=== PATIENT | female | born 1955 | race Caucasian/White ===

== ENCOUNTER 2016-06-25 06:37 | Inpatient (IN) ==
[2016-06-25] MEDS ORDERED: Aspirin 81 MG TAB.CHEW PO ONE (07:12)
--- NOTE | 2016-06-25 07:18 | Emergency Department Note ---
Disposition Clinical Impression: Acute kidney insufficiency Chest pain Qualifiers: Chest pain type: unspecified Qualified Code(s): R07.9 - Chest pain, unspecified Disposition: Admitted As Inpatient Condition: Good Referrals: Willie Estrada MD [Primary Care Provider] - Forms: ED Satisfaction Letter Time of Disposition: 07:46 Chest Pain HPI - General Chief Complaint: ED Chest Pain Stated Complaint: chest pain/DARRIN Time Seen by Provider: 06/25/16 07:10 Source: patient, family, EMS Mode of arrival: ambulatory Limitations: no limitations Vital Signs Reviewed: Yes Nursing Notes Reviewed: Yes - History of Present Illness HPI Narrative: Patient presents with chest pain this morning. Woke up with pressure on her chest. She has had a similar episode approximately 3 years ago and required catheterization and stenting. Patient said symptoms resolved completely at home with Tylenol and 1 hydrocodone. Patient otherwise has no complaints. Denies recent trauma injury or illness. She was concerned and decided to come the emergency room for evaluation because of her medical history Pt complaint: chest pain Onset (ago): Just [employer] [facility] [employer] Duration: now resolved Onset: during rest Pain Location: substernal Severity: none Severity scale (1-10): 0 Quality: heaviness Pain Radiation: none Improves with: other Worsens with: nothing Treatments prior to arrival chest pain: other (Tylenol and acetaminophen) - Related Data Allergies Allergy/AdvReac Type Severity Reaction Status Date / Time No Known Allergies Allergy Verified 06/25/16 06:39 All systems ED: reviewed and negative except as stated. Cardiovascular: Reports: chest pain. Denies: palpitations Respiratory: Denies: cough, dyspnea, wheezes Musculoskeletal: Denies: back pain Neurological: Denies: headache Chest Pain PMH - Past Medical History Medical history: Reports: CHF, COPD, DVT, hyperlipidemia, myocardial infarction Psychiatric history: Reports: no psych history - Social History Smoking Status: Former smoker Alcohol use: Reports: none Drug use: Reports: none Physical Exam - General Limitations: no limitations - Head Head exam: atraumatic, normocephalic, normal inspection - Chest Chest inspection: Present: normal inspection, symmetric chest wall rise. Absent : tenderness - Respiratory Respiratory exam: Present: normal lung sounds bilaterally. Absent: respiratory distress, wheezes, stridor, accessory muscle use - Cardiovascular Cardiovascular exam: Present: regular rate, normal rhythm, normal heart sounds - Abdominal Exam Abdominal exam: Present: soft, Non-Tender, normal bowel sounds. Absent: tenderness, distention, guarding, rebound, rigidity, Miller's sign, Rovsing's sign, tenderness at McBurney's Point - Extremities Exam Extremities exam: Present: normal inspection, full ROM, normal capillary refill. Absent: pedal edema - Back Exam Back exam: Present: normal inspection, full ROM. Absent: tenderness, CVA tenderness (R), CVA tenderness (L) (I will take) - Neurological Exam Neurological exam: Present: alert, oriented X3, CN II-XII intact, normal gait - Skin Skin exam: Present: warm, dry, intact, normal color Course Course Narrative: Patient seen and examined the time of arrival. See history of present illness. Patient presents to emergency room with complaint of chest heaviness and pressure. Woke her from sleep. She said this episode have a one-time a past when she required catheterization stent placement. Patient followed up with a trash collector in another town. She lives her locally. She denies any symptoms on presentation this time. Vital signs are reviewed and are stable. Patient is afebrile. Patient took a hydrocodone as well as 3 Tylenol prior to coming and did not take aspirin she is not complaining of any pain at this time. His exam is benign. Lungs are clear heart is regular no reproducible symptoms on palpation the chest wall. Abdomen soft nontender nondistended no pulsatile lesions. Patient is breathing comfortable and no acute distress. Patient does have underlying depression anxiety. Unknown whether this is exacerbating the etiology of her presentation here today. Patient is concerning for cardiac related sourced her symptoms secondary to her history and medical issues. Patient on cardiac evaluation. She has not had an echo or stress test done in over one year. Patient will require further cardiac evaluation. Discussed initially with possible admission for cardiac rule out this time. She does have a pacemaker in place secondary to unknown cardiac arrhythmia in the past. Patient otherwise is resting comfortably in the bed in no distress. Patient is not the most informative with her medical history is this time will continue to look until treatment course is completed. Expect admission process to be completed once labs and imaging are resulted. EKG troponin basic laboratory workup and chest x-ray are all pending at this time. Disposition pending treatment course. Patient has no symptoms this time. There is no acute need for nitroglycerin her pain medication intervention this point. We will continue to monitor treatment course is completed - Reevaluation(s) Reevaluation #1: Patient has negative troponin at this time. EKG reviewed showing a atrially paced rhythm with no acute abnormality. Patient does have an elevated BNP and creatinine today at 1.83 there is no comparable studies. Patient does not have physical exam findings consistent with acute fluid overload or CHF exacerbation. Patient this time will be admitted for evaluation of acute coronary syndrome with unknown etiology at this time. Patient provided with aspirin aeration and symptom 3 throughout the course of care. Admission process to be completed at this time Time: 07:45 Reevaluation #2: Patient course of care medical intervention was reviewed with the hospitalist Dr. Telles. No other recommendations this time except for placement and observation 4. Patient stable no other medical intervention in this point we will continue to observe her in emergency room to mesh prosthesis is completed Time: 07:58 Vital Signs Temperature 97.7 F 06/25/16 06:39 Pulse Rate 62 06/25/16 06:39 Respiratory Rate 16 06/25/16 06:39 Blood Pressure 119/105 06/25/16 06:39 O2 Sat by Pulse Oximetry 100 06/25/16 06:39 Temperature 97.7 F 06/25/16 06:52 Pulse Rate 62 06/25/16 06:52 Respiratory Rate 16 06/25/16 06:52 Blood Pressure 122/74 06/25/16 06:52 O2 Sat by Pulse Oximetry 100 06/25/16 06:52 Oxygen Delivery Oxygen Delivery Nasal Cannula Chest Pain - MDM Narrative Medical decision making narrative: ACS rule out, chest pain - Medical Records Medical records reviewed: Yes I reviewed the patient's medical records. - Lab Data Lab results reviewed: Yes I reviewed the patient's lab results. - Radiology Data Radiology results reviewed: Yes I reviewed the patient's radiology results. Patient is stable chest x-ray no signs of CHF exacerbation or infiltrate - EKG Data EKG attestation: Yes I reviewed and interpreted this EKG. Interpretation: other (Atrially paced rhythm with no acute abnormalities compared to EKG done on 07/31/06 previous EKG does not have pacemaker in place. Intervention for pacemaker was several years prior) Heart Score - Score History: Moderately Suspicious EKG: Non Specific repolarisation Disturbance Age: 45-65 Risk Factors: 1-2 risk factors Troponin: Less than normal limit HEART Score Total: 4
[2016-06-25 07:29] LABS: Calcium 9.1 mg/dL (8.6-10.8)
[2016-06-25 07:30] LABS: Potassium 4.8 mEq/L (3.5-4.5)
[2016-06-25 07:31] LABS: Activated Partial Thrombo Time 34.5 Seconds (26.0-36.0)
--- NOTE | 2016-06-25 07:43 | Emergency Department Note ---
START Narrative - START START: I examined this patient and my medical decision-making was reviewed with the CONCRETE FORM SETTER AND FINISHER/PA/Advanced Practice Nurse/Resident Physician. I agree with the documented findings, disposition and treatment plan as described except to the extent set forth below. ED attending note: Patient seen with emergency medicine resident Dr. Ryan. Please see a copy of his note for details of the H&P, evaluation, management and disposition of this patient. We independently had [id number] contact with the patient Briefly: [id number] female history of coronary artery disease. No recent provocative testing comes in with chest pain consistent with an anginal equivalent. Pain-free now afebrile with stable vital signs. EKG reviewed shows no acute ischemic changes. Awaiting chest x-ray troponin and other screening labs. Patient was given aspirin in the ED. Admission is anticipated and discussed with patient and support personnel with her. They are comfortable with this plan. Disposition pending
[2016-06-25 07:45] LABS: Basophils % 0.3 %; Eosinophils # 0.4 K/mcL (0.0-0.6); Eosinophils % 4.8 %; Hematocrit 38.5 % (35.3-44.9); Immature Granulocytes % 0.4 % (0-4); Lymphocytes # 3.7 K/mcL (0.6-4.6); Lymphocytes % 40.7 %; Mean Corpuscular HGB Conc 31.2 g/dL (31.6-35.5); Mean Corpuscular Hemoglobin 27.5 pg (28.0-33.3); Mean Corpuscular Volume 88.3 fL (83.0-100.0); Mean Platelet Volume 12.4 fL (9.4-12.4); Monocytes # 0.5 K/mcL (0.0-1.3); Monocytes % 5.6 %; Neutrophils # 4.4 K/mcL (1.6-8.9); Nucleated Red Blood Cells 0.2 /100 WBC (0); Platelet Count 213 K/mcL (140-400); Red Blood Count 4.36 M/mcL (3.82-4.97); Red Cell Distribution Width 15.9 % (11.5-14.5); Segmented Neutrophils % 48.2 %
--- NOTE | 2016-06-25 08:30 | Event Note ---
Date of Encounter: 06/25/16 Time of Encounter: 08:24 This document examined with nurse practitioner. Briefly 60-year-old female with history of coronary artery disease status post for stent placement last was about 2 years ago, history of mitral valve repair/replacement (not a mechanical valve) for my mitral regurge, status post pacemaker placement, COPD on nighttime oxygen, who presented to the emergency room today with chest pain. About 7 AM while patient was awake sitting in bed she experienced members of the retrosternal chest pain radiating to her neck lasted approximately for 10 minutes resolved after she took hydrocodone. Patient was often during my interview. Initial appointment normal. She will be admitted without acute coronary syndrome. Serial cardiac markers Continue anti-ischemic medications including aspirin beta blockers. Attempt to get outside records over cardiac workup from [facility] in [place]. Cardiology service evaluation. She has elevation of her creatinine to 1.8. she has no known prior kidney disease according to her. She was recently started on Bactrim for skin lesions and that may have caused hyperkalemia and elevation of creatinine. gentle hydration and follow-up kidney functions. Continue doxycycline which she is already taking for her skin lesions. Full code
--- NOTE | 2016-06-25 09:28 | Internal Med History&Physical ---
Date of Encounter: 06/25/16 Time of Encounter: 08:30 Assessment and Plan (1) Chest pain Current visit: Yes Status: Acute Assess: Patient reports chest pain that began today (06/25/16) as a pressure that radiated up her neck. States it was resolved with Tylenol and hydrocodone. Patient has long history of chest pain, myocardial infarctions, pacemaker, mitral valve replacement, and 4 stents. Plan: Cardiology consult ordered and confirmed Troponin trend ordered Monitoring BNP levels (521 on 06/25/16) Continuous cardiac monitoring ordered Continue aspirin therapy Monitoring potassium 500 ml 0.9 IV fluids ordered at 40 mls/hr Continue Pravastain Continue Metoprolol Continue Lopid 2L O2 ordered to be titrated if SpO2 <92% Continuous monitoring of vital signs Cardiac diet ordered Qualifiers: Chest pain type: other chest pain Qualified Code(s): R07.89 - Other chest pain; R07.8 - Other chest pain (2) Flank pain, acute Current visit: Yes Status: Acute Assess: Patient reports acute right flank pain. This is confirmed with palpation on exam. Plan: U/A ordered Continue hydrocodone for pain PRN Possible renal consult if renal calculi suspected Continue Lasix 500 ml 0.9 NS ordered at 40 mls/hr Monitor creatinine (3) Chronic kidney disease Current visit: Yes Status: Acute Assess: Patient reports history of renal disease. GFR is currently 28. Plan: Continue Lasix cautiously due to history of CHF 500 ml 0.9 NS ordered at reduced rate of 40 mls.hr U/A ordered Monitor creatinine Qualifiers: Chronic kidney disease stage: stage 4 (severe) Qualified Code(s): N18.4 - Chronic kidney disease, stage 4 (severe) (4) Anxiety and depression Current visit: Yes Status: Acute Assess: Patient reports history of anxiety and depression. Plan: Continue Zoloft Continue Klonopin (5) Skin sore Current visit: Yes Status: Acute Assess: Patient currently has circular, erythematous skin sores on her abdomen of unknown cause. Patient states she had these last year also. Patient was started on 10 days of Bactrim and doxycycline on 06/17/16. Plan: Cultures ordered Continue Doxycycline Discontinue Bactrim (6) Myocardial infarct, old Current visit: Yes Status: Suspected Assess: Patient reports chest pain that began today (06/25/16) as a pressure that radiated up her neck. States it was resolved with Tylenol and hydrocodone. Patient has long history of chest pain, myocardial infarctions, pacemaker, mitral valve replacement, and 4 stents. Plan: Cardiology consult ordered and confirmed Troponin trend ordered Monitoring BNP levels (521 on 06/25/16) Continuous cardiac monitoring ordered Continue aspirin therapy Monitoring potassium 500 ml 0.9 IV fluids ordered at 40 mls/hr Continue Pravastain Continue Metoprolol Continue Lopid 2L O2 ordered to be titrated if SpO2 <92% Continuous monitoring of vital signs Cardiac diet ordered (7) Stroke due to embolism Current visit: Yes Status: Resolved Assess: Patient reports history of stroke, MIs and DVTs. Plan: Continue aspirin therapy Cardiology consult ordered Continuous cardiac monitoring ordered SCDs ordered for calves bilaterally Monitoring BNP levels Continuous monitoring of vital signs 2L O2 ordered to be titrated if SpO2 <92% Qualifiers: Precerebral and cerebral artery: unspecified cerebral artery Qualified Code (s): I63.40 - Cerebral infarction due to embolism of unspecified cerebral artery (8) DVT prophylaxis Current visit: Yes Status: Acute Assess: Patient reports history of stroke, MIs and DVTs. DVT prophylaxis ordered. Plan: Continue aspirin therapy Cardiology consult ordered Continuous cardiac monitoring ordered SCDs ordered for calves bilaterally Continuous monitoring of vital signs Internal Medicine - H&P: HPI Chief complaint: Chest pain Admitted From: Emergency Dept Plans for Post Hospital Care: Home History of present illness: Ms. Buckner is a 60 year old female who presents today from the ED she complained of chest pain which began this morning. Patient reports chest pain was a pressure in her chest that radiated up her left neck and states a similar episode 2-3 years ago required heart catheter and stenting. Patient states her symptoms resolved after taking Tylenol and hydrocodone. Patient also complains of nausea. Denies vomiting, fever, chills. Patient reports she has a history of CHF, COPD (smoked one half pack per day up until 2 years ago), DVTs (patient reports DVT years ago traveled to [facility] and caused seizure), stroke, and myocardial infarctions. Patient reports she has had a total of 4 MIs, each time having a stent placed post AR. Last reported AR was 2 years ago. Patient is currently followed by her bench repair technician, Dr. Pinzon in [place], [place]. Mrs. Buckner also states she began having blood in her stool 2 days ago. Blood was bright red in the water patient had colonoscopy one year ago which showed hemorrhoids and polyp (no polyp removal). Patient also states she has lesions on her stomach which are erythematous and have a pus core and then scab over. Patient is currently on 10 days of doxycycline and Bactrim for lesions (began ). Patient to be admitted inpatient observation. Past Med Surg Social Fam HX - Past Medical History Medical history: CHF, COPD, DVT, hyperlipidemia, myocardial infarction, seizures , other (Patient reports history of stroke) Psychiatric history: anxiety, depression - Past Surgical History Surgical History: angioplasty/stent (Patient reports placement of 4 stents following for MIs.), heart valve replacement, pacemaker - Social History Smoking Status: Former smoker Smokeless Tobacco Status: No Alcohol use: none Drug use: none - Family History Father Living Status: Hx Family Cardiac Disorders: Yes (AR) Brother Hx Family Cardiac Disorders: Yes Internal Medicine - H&P: Meds Aspirin/Calcium Carbonate/Mag [Aspirin Buffered 325 mg Tab] 325 mg PO DAILY [History] ClonazePAM [Klonopin] 1 mg PO BID 06/25/16 [History] Doxycycline 100 mg PO BID 06/25/16 [History] Furosemide [Lasix] 40 mg PO DAILY 06/25/16 [History] Gabapentin [Neurontin] 300 mg PO TID 06/25/16 [History] Gemfibrozil [Lopid] 600 mg PO BID 06/25/16 [History] HYDROcodone/Acet 5/325 mg [[place] 5-325 mg] 1 tab PO BID PRN 06/25/16 [History] Levothyroxine [Synthroid] 88 mcg PO DAILY 06/25/16 [History] Metoprolol [Lopressor] 25 mg PO BID 06/25/16 [History] Pantoprazole Sodium [Protonix] 40 mg PO DAILY 06/25/16 [History] Pravastatin Sodium [Pravachol] 80 mg PO DAILY 06/25/16 [History] Sertraline [Zoloft] 200 mg PO DAILY 06/25/16 [History] Sulfamethoxazole/Trimeth DS [Bactrim DS] 1 tab PO BID 06/25/16 [History] Allergies No Known Allergies Allergy (Verified 06/25/16 06:39) All Systems PM: A 10-system review of systems was performed and is negative for pertinent findings except as documented above in the HPI. - Constitutional Constitutional: no chills, no fever(s), no night sweats - EENT Eyes: no change in vision, no discharge, no pain, no photophobia Ears: no ear discharge, no ear pain, no tinnitus Nose, mouth and throat: no dysphagia, no nasal discharge, no neck pain, no sore throat - Breasts Breasts: as per HPI - Cardiovascular Cardiovascular ROS IM: as per HPI, chest pain, dyspnea on exertion, no diaphoresis, no dyspnea, no lightheadedness, no palpitations, no syncope Additional comments: Patient reports having a pacemaker and mitral valve replacement. Patient reports chest pain beginning this morning as pressure in her chest that radiated up her neck. She also reports shortness of breath on exertion. - Respiratory Respiratory: as per HPI, dyspnea on exertion Additional comments: Denies cough, wheezing, hemoptysis, and chest congestion. - Gastrointestinal Gastrointestinal: as per HPI, abdominal pain, hematochezia Additional comments: Patient reports she is currently experiencing intermittent abdominal pain. This is evident several times during examination. Patient also reports episodes of bright red fecal occult blood in toilet water over past 48 hours. She reports history of hemorrhoids and polyps in colon. - Genitourinary Genitourinary: as per HPI Menstruation: as per HPI - Musculoskeletal Musculoskeletal ROS IM: as per HPI Additional comments: Patient reports right sided flank pain that is a stabbing quality and radiates down her right leg. Patient also reports the pain moved to her left flank. - Integumentary Integumentary IM: as per HPI, new lesions, sores Additional comments: Patient reports new red lesions on her stomach which sometimes itch and have a pus core. Patient reports lesions one burst and scab over. Patient is currently on doxycycline and Bactrim for lesions. Patient began antibiotic treatment on 06/17/16. - Neurological Neurological ROS: numbness Additional comments: Patient reports right sided flank pain that is a stabbing quality and radiates down her right leg. Patient also reports the pain moved to her left flank. Patient reports legs will go numb if she continues to stand or walk. - Psychiatric Psychiatric: anxiety, depression Additional comments: Patient reports a history of anxiety and depression. Denies suicidal ideations. - Endocrine Endocrine IM: heat intolerance Additional comments: Patient reports she becomes easily overheated and avoids hot environments. - Hematologic/Lymphatic Hematologic/Lymphatic: no easy bruising - Allergic/Immunologic Allergic/Immunologic: as per HPI Additional comments: Patient reports no known allergies. - Constitutional Vitals: Temp Pulse Resp BP Pulse Ox 97.7 F 62 14 133/76 100 06/25/16 06:52 06/25/16 07:56 06/25/16 09:06 06/25/16 09:06 06/25/16 07:56 General appearance: Present: cooperative, mild distress, A&O X 3, pleasant, obese, answers questions appropriately - Head Head exam: Present: atraumatic, normocephalic - Eye Eye exam: Present: PERRL, conjuntiva pink, sclera anicteric Pupils: Present: PERRL - ENT ENT exam: Present: normal exam, normal external ear exam - Neck Neck exam general surgery: Present: normal inspection, supple, trachea midline - Respiratory Respiratory exam: Present: CTAB. Absent: accessory muscle use, rales, rhonchi, wheezes - Cardiovascular Cardiovascular exam: Present: RRR, +S1, +S2. Absent: diastolic murmur, gallop, rubs, systolic murmur - GI/Abdominal GI/Abdominal exam: Present: normal bowel sounds, soft, tenderness Additional comments: Mrs. Buckner abdomen is soft and tender during palpation. Patient reports intermittent abdominal pain which is centrally located in the epigastric area. - Rectal Rectal exam: Present: deferred - Additional comments: exam deferred. - Extremities Exam Extremities exam: Present: normal capillary refill, normal inspection, radial pulses palpable and symetrical - Back Exam Back exam: Present: normal inspection Additional comments: Patient exhibits right flank pain on palpation. - Neurological Exam Neurological exam: Present: alert, oriented X3, reflexes normal, no focal deficits, strengths equal and symetr throughout - Psychiatric Psychiatric exam: Present: normal affect, normal mood - Skin Skin exam: Present: vesicles Additional comments: Vesicles are present on patient's abdomen. Sores are cylindrical, erythematous , and either have a pus core or scabbed. Internal Med - H&P Results - Labs CBC & Chem 7: 06/25/16 06:49 06/25/16 06:49 - EKG Data Prior EKG available for review: yes When compared to previous EKG: there are significant changes EKG comments: 04/21/17 09:47 EKG dated 06/25/16 shows electronic atrial pacemaker with possible inferior myocardial infarction (probably old). EKG dated 07/31/06 shows sinus rhythm with PACs, left axis deviation, left bundle branch block. - Diagnostic Studies Chest x-ray Additional comments: CXR dated 06/25/16 shows prior sternotomy with valve repair. Thoracic aortic atherosclerosis. Able enlarged heart size. Left-sided dual-lead pacemaker. Normal lung volumes with no acute consolidation or interstitial edema. No pneumothorax or free subdiaphragmatic air. No pulmonary mass. Cardiomegaly with postsurgical changes. No acute pneumonia or congestive heart failure.
[2016-06-25] MEDS ORDERED: Ondansetron 4 MG/2 ML VIAL IVP PRN (09:54)
[2016-06-25] MEDS ORDERED: Naloxone 0.4 MG/ML INJ IVP PRN (09:54)
[2016-06-25] MEDS ORDERED: Calcium Gluconate 1,000 MG in D5% in Water 100 ML IVPB ONE (09:55)
[2016-06-25] MEDS ORDERED: 0.9 % Sodium Chloride 500 ML IVC ONE (09:56)
[2016-06-25] MEDS ORDERED: *HR* HYDROcodone/Acet 5/325 mg TABLET PO PRN (09:58)
[2016-06-25] MEDS ORDERED: 0.9 % Sodium Chloride 1,000 ML IVC SCH (10:00)
[2016-06-25] MEDS ORDERED: 0.9 % Sodium Chloride 500 ML IVC SCH (10:15)
--- NOTE | 2016-06-25 14:33 | Cardiology Consult Note ---
Date of Encounter: 06/25/16 Time of Encounter: 14:30 Assessment and Plan (1) Chest pain Current Visit: Yes Status: Acute Chest pain this AM that radiated to left neck, relieved with pain medication. No recurrence since. Reports pain similar to prior UT. Somewhat tender on palpation. Troponins negative x 2. Trend for total of 3. Reports LH 1 year ago prior to mitral valve replacement without intervention at [facility]. Requesting records. Reports bright red blood in stool that started 2 days ago, but known hx of hemorrhoids, recent colonoscopy. H&H stable. Check stool occult blood. Will check echo to evaluate structure and function. Possible stress test in AM pending evaluation by Dr. Barone. Will make NPO. ASA, Statin, BB. Qualifiers: Chest pain type: other chest pain Qualified Code(s): R07.89 - Other chest pain; R07.8 - Other chest pain (2) CAD (coronary artery disease) Current Visit: Yes Status: Acute Hx of CAD, MIs, multiple PCIs. Reports LHC 1 year ago prior to Mitral valve surgery without intervention. ASA, Statin, BB. Qualifiers: Coronary Disease-Associated Artery/Lesion type: [place] artery [place] vs. transplanted heart: [place] heart Associated angina: angina presence unspecified Qualified Code(s): I25.10 - Atherosclerotic heart disease of [place] coronary artery without angina pectoris (3) H/O mitral valve replacement Current Visit: Yes Status: Chronic Hx of mitral valve replacement per pt at [facility] 1 year ago. Presumed bioprosthetic or repair since pt is not on Coumadin. Request records. Check echo. (4) Pacemaker Current Visit: Yes Status: Chronic Reports PPM placed 2 years ago. Follows with outside taper machine. Discussion w patient/family: The assessment and plan as outlined above was discussed with the patient and/or family members who expressed understanding and agreement. All questions were answered. Thank you for involving us in the care of your patient. Please call with any questions. I will discuss all the above with Dr. Barone and make changes as necessary. History of Present Illness Consult date: 06/25/16 Requesting physician: Cory Caceres Consult reason: Chest pain Chief complaint: Chest pain History of present illness: Ms. Buckner is a 60 year old female with PMH of CHF, COPD, DVTs, CVA, MIs, CAD s/ p PCI, mitral valve replacement that presented to ED today complaining of chest pain that started this morning while in bed. Described as pressure that radiated up her left neck. Reports similar episode 2-3 years ago required LHC and PCI. Symptoms resolved after taking Tylenol and hydrocodone without recurrence. Patient also complains of nausea and diaphoresis. Denies vomiting , fever, chills. Last reported UT was 2 years ago. States she had a mitral valve replaced/repaired last year at [facility] with LHC at that time without intervention. Patient follows with taper machine, Dr. Pinzon in [place], [place]. Mrs. Buckner also states she began having blood in her stool 2 days ago. Blood was bright red, reports colonoscopy one year ago which showed hemorrhoids and polyp. Troponins negative x 2. CXR negative. No prior cardiac testing on file at [place]. Pt also has acute right flank pain. Past Med Surg Social Fam HX - Past Medical History Medical history: CHF, COPD, coronary artery disease, DVT, hyperlipidemia, myocardial infarction, seizures, valvular heart disease, other (Patient reports history of stroke) Psychiatric history: anxiety, depression - Past Surgical History Surgical History: angioplasty/stent (Patient reports placement of 4 stents following for MIs.), heart valve replacement, pacemaker - Social History Smoking Status: Former smoker Smokeless Tobacco Status: No Alcohol use: none Drug use: none - Family History Father Living Status: Hx Family Cardiac Disorders: Yes (UT) Brother Hx Family Cardiac Disorders: Yes Medications and Allergies Aspirin/Calcium Carbonate/Mag [Aspirin Buffered 325 mg Tab] 325 mg PO DAILY [History] ClonazePAM [Klonopin] 1 mg PO BID 06/25/16 [History] Doxycycline 100 mg PO BID 06/25/16 [History] Furosemide [Lasix] 40 mg PO DAILY 06/25/16 [History] Gabapentin [Neurontin] 300 mg PO TID 06/25/16 [History] Gemfibrozil [Lopid] 600 mg PO BID 06/25/16 [History] HYDROcodone/Acet 5/325 mg [[place] 5-325 mg] 1 tab PO BID PRN 06/25/16 [History] Levothyroxine [Synthroid] 88 mcg PO DAILY 06/25/16 [History] Metoprolol [Lopressor] 25 mg PO BID 06/25/16 [History] Pantoprazole Sodium [Protonix] 40 mg PO DAILY 06/25/16 [History] Pravastatin Sodium [Pravachol] 80 mg PO DAILY 06/25/16 [History] Sertraline [Zoloft] 200 mg PO DAILY 06/25/16 [History] Sulfamethoxazole/Trimeth DS [Bactrim DS] 1 tab PO BID 06/25/16 [History] Allergies No Known Allergies Allergy (Verified 06/25/16 06:39) All Systems Review: A 10-system review of systems was performed and is negative for pertinent findings except as documented above in the HPI. - Cardiovascular Cardiovascular: as per HPI, chest pain at rest, chest pain with exertion, diaphoresis, dyspnea at rest, dyspnea on exertion, radiating jaw, neck or arm pain - Respiratory Respiratory: dyspnea - Genitourinary Genitourinary: other (flank pain) Physical Examination Vital Signs, Last 4 Hours Temp Pulse Resp BP Pulse Ox 06/25/16 10:45 97.6 F 62 17 98/69 92 Vital Signs Temp Pulse Resp BP Pulse Ox 06/25/16 10:45 97.6 F 62 17 98/69 92 06/25/16 09:06 14 133/76 06/25/16 07:56 62 14 123/71 100 06/25/16 06:52 97.7 F 62 16 122/74 100 06/25/16 06:39 97.7 F 62 16 119/105 100 Intake and Output 06/24/16 06/25/16 06/25/16 23:59 07:59 15:59 Other: Weight 115.212 kg 115.212 kg Patient Weight 06/25/16 23:59 Weight 115.212 kg General: Conversant, No Apparent Distress HEENT: Atraumatic, Normocephaly, Mucus Membranes Moist Neck: No JVD, Normal carotid pulses Cardiac: Reg Rate and Rhythm, Normal S1 and S2, No Murmur Lungs: Normal Breath Sounds, No Wheeze, Rales, Rhonchi Neuro: Alert and responsive, No focal deficits noted Abdomen: Soft, Non-Tender Skin: No rashes noted on visualized skin Musculoskeletal: No Chest Wall Tenderness Extremities: No Clubbing, No Cyanosis, No Edema, Normal Pulses Results 06/25/16 06:49 06/25/16 13:09 Lab Results 06/25/16 06/25/16 06/25/16 13:09 13:09 13:09 Potassium 4.3 Magnesium 2.0 Troponin I 0.02 Short CBC 06/25/16 Range/Units 06:49 WBC 9.1 (4.3-11.1) K/mcL Hgb 12.0 (11.5-15.4) g/dL Hct 38.5 (35.3-44.9) % Plt Count 213 (140-400) K/mcL Neutrophils # 4.4 (1.6-8.9) K/mcL BMP 06/25/16 06/25/16 Range/Units 13:09 06:49 Sodium 140 (136-145) mEq/L Potassium 4.3 4.8 H (3.5-4.5) mEq/L Chloride 109 (98-109) mEq/L Carbon Dioxide 21 (19-29) mEq/L BUN 39 H (7-20) mg/dL Creatinine 1.83 H (0.57-1.11) mg/dL Glucose 95 (70-99) mg/dL Calcium 9.1 (8.6-10.8) mg/dL Cardiac Enzymes 06/25/16 06/25/16 Range/Units 13:09 06:49 Troponin I 0.02 0.01 (0-0.03) ng/mL Impressions Chest X-Ray 06/25/16 07:12 IMPRESSION: Cardiomegaly with postsurgical changes. No acute pneumonia or congestive heart failure. D/ / 06/25/2016 07:39:33 Macario Gonzalez MD / johanna Interpreting Provider: Macario Gonzalez MD Active Medications Acetaminophen/Hydrocodone Bitart ([place] 5-325 Mg) 1 tab PO BID PRN PRN Reason: Pain Stop: 12/25/16 09:59 Aspirin (Aspirin Ec) 325 mg PO DAILY DINA Stop: 12/26/16 09:01 Clonazepam (Klonopin) 1 mg PO BID DINA Stop: 12/25/16 21:01 Doxycycline Hyclate (Doxycycline) 100 mg PO BID DINA Stop: 12/25/16 21:01 Gabapentin (Neurontin) 100 mg PO TID DINA Stop: 12/25/16 15:01 Last Admin: 06/25/16 14:35 Dose: 100 mg Gemfibrozil (Lopid) 600 mg PO BID [facility] Stop: 12/25/16 21:01 Sodium Chloride (0.9 % Sodium Chloride) 500 mls @ 40 mls/hr IVC .[id number] DINA Stop: 12/25/16 10:16 Levothyroxine Sodium (Synthroid) 88 mcg PO 0630 DINA Stop: 12/26/16 06:31 Metoprolol Tartrate (Lopressor) 25 mg PO BID [facility] Stop: 12/25/16 21:01 Naloxone HCl (Narcan) 0.4 mg IVP Q2MIN PRN PRN Reason: Opioid Reversal Stop: 12/25/16 09:55 Omeprazole (Prilosec) 20 mg PO DAILY [facility] Stop: 12/26/16 09:01 Ondansetron HCl (Zofran) 4 mg IVP Q8HR PRN PRN Reason: Nausea And Vomiting Stop: 12/25/16 09:55 Sertraline HCl (Zoloft) 200 mg PO DAILY [facility] Stop: 12/26/16 09:01 Simvastatin (Zocor) 40 mg PO HS [facility] Stop: 12/26/16 21:01 - Imaging and Cardiology Chest Xray: report reviewed - EKG Interpretation EKG results cardiology: personally reviewed (atrial PPM.) Consult Discharge Plan - Plan Referrals: Willie Estrada MD [Primary Care Provider] -
[2016-06-25] MEDS: Gabapentin 100 MG CAPSULE PO SCH ×2 (14:35→20:11)
[2016-06-25] MEDS ORDERED: Gabapentin 300 MG CAPSULE PO SCH (15:00)
[2016-06-25 15:03] LABS: Bilirubin,Urine Negative (Negative); Blood,Urine Negative (Negative); Clarity,Urine Clear (Clear); Color,Urine Yellow (Yellow); Glucose,Urine (UA) Normal (Normal); Ketones,Urine Negative (Negative); Leukocyte Esterase,Urine Small (Negative); Nitrite,Urine Negative (Negative); Protein,Urine Negative (Neg-Trace); Specific Gravity,Urine 1.026 (1.010-1.025); Urobilinogen,Urine Normal (Normal)
[2016-06-25 15:04] LABS: Bacteria,Urine None Seen per hpf (None-Few); Hyaline Casts,Urine None Seen per lpf (None-Few); RBC,Urine 0-3 per hpf (0-3); Squamous Epithelial Cell,Urine Many per lpf (None-Few)
--- NOTE | 2016-06-25 17:22 | Electrocardiograph Report ---
[address] [place], [place] [address] Test Date: 2016-06-25 Pat Name: Salome Buckner Department: 102 Room: 3B Gender: F Club Former: Qian : 1955 Requested By: Santy Ryan Order Number: [id number] Reading MD: Cynthia Jain Measurements Intervals [place] Rate: 61 P: -47 MI: 270 QRS: 88 QRSD: 125 T: 95 QT: 454 QTc: 458 Interpretive Statements ELECTRONIC ATRIAL PACEMAKER POSSIBLE INFERIOR MYOCARDIAL INFARCTION [30 ms Q WAVE IN II/aVF], PROBABLY OLD ABNORMAL RHYTHM ECG Electronically Signed On 06-25-2016 17:21:07 EDT by Cynthia Jain
[2016-06-25] MEDS: Doxycycline 100 MG CAPSULE PO SCH (20:11)
[2016-06-25] MEDS: clonazePAM 1 MG TABLET PO SCH (21:17)
[2016-06-25] MEDS ORDERED: Perflutren Lipid Microsphere 1.3 ML in 0.9 % Sodium Chloride 8.7 ML IVP ONE (22:12)
[2016-06-25] MEDS: Nystatin POWDER 30 GM BOTTLE TP SCH (22:40)
[2016-06-26] MEDS: 0.9 % Sodium Chloride 1,000 ML IVC SCH (03:13)
[2016-06-26 04:30] LABS: Basophils % 0.2 %; Eosinophils # 0.5 K/mcL (0.0-0.6); Eosinophils % 4.9 %; Hematocrit 35.3 % (35.3-44.9); Hemoglobin 10.9 g/dL (11.5-15.4); Immature Granulocytes % 0.4 % (0-4); Lymphocytes # 2.8 K/mcL (0.6-4.6); Lymphocytes % 30.6 %; Mean Corpuscular HGB Conc 30.9 g/dL (31.6-35.5); Mean Corpuscular Hemoglobin 27.4 pg (28.0-33.3); Mean Corpuscular Volume 88.7 fL (83.0-100.0); Mean Platelet Volume 12.1 fL (9.4-12.4); Monocytes # 0.5 K/mcL (0.0-1.3); Monocytes % 5.6 %; Neutrophils # 5.4 K/mcL (1.6-8.9); Nucleated Red Blood Cells 0.2 /100 WBC (0); Platelet Count 186 K/mcL (140-400); Red Blood Count 3.98 M/mcL (3.82-4.97); Red Cell Distribution Width 15.8 % (11.5-14.5); Segmented Neutrophils % 58.3 %
[2016-06-26] MEDS ORDERED: Regadenoson 0.4 MG/5 ML SYRINGE IVP ONE (06:37)
[2016-06-26] MEDS ORDERED: Aspirin Enteric Coated 325 MG Tablet PO SCH (09:00)
[2016-06-26] MEDS ORDERED: Furosemide 40 MG TABLET PO SCH (09:00)
[2016-06-26] MEDS: clonazePAM 1 MG TABLET PO SCH ×2 (09:20→21:13)
[2016-06-26] MEDS: Aspirin Enteric Coated 81 MG Tablet PO SCH (09:20)
[2016-06-26] MEDS: Gabapentin 100 MG CAPSULE PO SCH ×3 (09:20→21:11)
[2016-06-26] MEDS: Doxycycline 100 MG CAPSULE PO SCH ×2 (09:20→21:11)
[2016-06-26] MEDS: Nystatin POWDER 30 GM BOTTLE TP SCH ×2 (09:20→21:14)
--- NOTE | 2016-06-26 09:29 | ECHO - Doppler Report ---
Echo with Imaging Enhancement Agent Name: Salome Buckner Date of Study: 06/25/2016 Date: 1955 Ht: 67.0 in Medical Record#: [id number] Age: 60 Wt: 254.0 lb Gender: Female BSA: 2.24 Order #: [id number] Location: [facility] Room #: 3B35 Reading Physician: Rolan Barone MD, [facility] Surgical Services Assistant: Izabel Mercado RVT Ordering Physician: Juan Luis Zuniga CNP Primary Physician: Willie Estrada M.D. Indications: Chest pain, S/p MV replacement Impressions: LVEF 15-20% with severe global hypokinesis and regional variations. Severely dilated left atrium. Bioprosthetic valve with gradients that are likely normal (no valve information information available) with mild regurgitation (not perivalvular) Diastolic dysfunction, NOS No diagnostic pulmonary hypertension but RVSP maybe underestimated with eccentric TR jet. Left Ventricular Wall Motion: Rest Echo Findings The apex, apical inferior, mid inferior, basal inferior, apical anterior, mid anterior, basal anterior, apical septal, mid inferior septal, basal inferior septal, apical lateral, mid anterior lateral, basal anterior lateral, mid anterior septal, mid inferior lateral, basal anterior septal and basal inferior lateral joseph were hypokinetic. Findings: Study Quality * Technically adequate exam. Right Ventricle * Normal right ventricular structure and function. Right Atrium * Normal right atrial size. Aortic Valve * Trileaflet aortic valve with normal function. Interatrial Septum * No evidence of PFO by color Doppler. Aorta * Normally sized aortic root. Pericardium * The pericardium appears normal. Left Atrium * Severely dilated left atrium. Tricuspid Valve * Mild tricuspid regurgitation. * Estimated RVSP is 25 mmHg. * Estimated RA pressure is 5-8 mmHg. * Eccentric TR jet, RVSP maybe underestimated * No tricuspid stenosis. Pulmonic Valve * Pulmonic valve is not well visualized. * No pulmonic stenosis. * Mild pulmonic regurgitation. Mitral Valve * Mild mitral regurgitation. * Bioprosthetic valve with gradients that are likely normal (no valve information information available) with mild regurgitation * Mean transmitral gradient is mean 4mmHg max PG 10mmHg mmHg. Left Ventricle * Severe global left ventricular systolic dysfunction. * Diastolic dysfunction, NOS * LVEF 15-20%. IVC * The IVC is dilated. * > 50% respiratory change History Hypercholesteremia History of CAD/PTCA Myocardial Infarction Congestive Heart Failure Pacer/ICD Implant Valve Replacement Contrast: Definity 1.3 ml in 8.7 ml of saline 2 ml. Measurements: BP: 116/ 76 2D Normal Values RVIDd: 4.20 cm <2.7 cm IVSd: .80 cm 0.6 - 1.0 cm LVIDd: 7.70 cm 3.7 - 5.6 cm LVPWd: .70 cm 0.6 - 1.1 cm LVIDs: 6.60 cm 1.5 - 3.6 cm AO: 2.80 cm < 4.0 cm LA: 5.70 cm 2.0 - 4.0cm %FS: 14.30 cm >25 % LA volume: 151 Mitral Valve Peak Velocity 1.61 m/sec Mean Velocity:.83 m/sec Peak Grad:10.00 mmHg Mean Grad:4.00 mmHg Pressure Time:116.00 msec Valve Area:1.90 cm2 Peak E:1.51 m/sec Peak A:.45 m/sec E/A Ratio:3.4 Peak E' Lat César:5.21 cm/s Peak E' Med César:5.45 cm/s E/E' Lat Ratio:29 E/E' Med Ratio:27.7 Aortic Valve Peak César:1.93 m/sec Mean César:1.23 m/sec Peak Grad:15.00 mmHg Mean Grad:7.00 mmHg Tricuspid Valve TV Regurg Peak Grad: 25.00mmHg TV Regurg Peak César: 2.50m/sec Updated by Rolan Barone MD, [facility] on 06/26/2016 9:22:25 AM electronically signed on 06/26/2016 9:23:16 AM with status of Final Wall Motion Rain: 1=Normal, 2=Hypokinesis, 3=Akinesis, 4=Dyskinesis, 5=Aneurysmal, 6=Hyperkinetic, X=Not Visualized (Blank)=Missing
--- NOTE | 2016-06-26 10:04 | Cardiology Progress Note ---
Date of Encounter: 06/26/16 Time of Encounter: 09:30 Assessment and Plan (1) Chest pain Current Visit: Yes Status: Acute No recurrent chest pain or neck pain since yesterday morning. Reports pain similar to prior [place]. Somewhat tender on palpation. Troponins negative x 3. Reports LHC 1 year ago prior to mitral valve replacement without intervention at [facility]. Requesting records. Reports bright red blood in stool that started 2 days ago, but known hx of hemorrhoids, recent colonoscopy. H&H stable. Check stool occult blood. Patient underwent first part of stress test this morning. Echocardiogram revealed severely reduced EF at 15-20%. Bioprosthetic mitral valve in place with gradients that are likely normal, there is no valve information at this time. Mild mitral regurgitation but is not perivalvular. Await records to compare. ASA, Statin, BB. Qualifiers: Chest pain type: other chest pain Qualified Code(s): R07.89 - Other chest pain; R07.8 - Other chest pain (2) CAD (coronary artery disease) Current Visit: Yes Status: Acute Hx of CAD, MIs, multiple PCIs. Reports LHC 1 year ago prior to Mitral valve surgery without intervention. ASA, Statin, BB. Qualifiers: Coronary Disease-Associated Artery/Lesion type: [place] artery [place] vs. transplanted heart: [place] heart Associated angina: angina presence unspecified Qualified Code(s): I25.10 - Atherosclerotic heart disease of [place] coronary artery without angina pectoris (3) H/O mitral valve replacement Current Visit: Yes Status: Chronic Hx of mitral valve replacement per pt at [facility] 1 year ago. Request records. (4) Cardiomyopathy Current Visit: Yes Status: Acute TTE reveals EF severely reduced at 15-20%. Unclear if new. Awaiting records. LHC one year ago prior to mitral valve surgery. Pt. poor historian. Currently euvolemic. Change metoprolol tartrate to succinate. Add jolynn-inhibitor. Low sodium diet. Daily weights and strict I&O. No overt CHF on exam.CXR shows no heart failure. Mildly elevated BNP. Lasix on hold secondary to IVANA. Creatinine improving. CHF education. Await records. Qualifiers: Cardiomyopathy type: unspecified Qualified Code(s): I42.9 - Cardiomyopathy , unspecified Discussion w patient/family: The assessment and plan as outlined above was discussed with the patient and/or family members who expressed understanding and agreement. All questions were answered. Thank you for involving us in the care of your patient. Please call with any questions. Subjective Principal diagnosis: Chest pain Interval history: Patient seen stress lab. She denies recurrent chest pain. Complains of left flank pain at times. Objective Vital Signs, Last 4 Hours Temp Pulse Resp BP Pulse Ox 06/26/16 07:06 98.6 F 68 14 113/61 93 General: Conversant, No Apparent Distress, Other HEENT: Atraumatic, Normocephaly, Mucus Membranes Moist Neck: No JVD, Normal carotid pulses Cardiac: Reg Rate and Rhythm, Normal S1 and S2, No Murmur Lungs: Normal Breath Sounds, No Wheeze, Rales, Rhonchi Neuro: Alert and responsive, No focal deficits noted Abdomen: Soft, Non-Tender Skin: No rashes noted on visualized skin Musculoskeletal: No Chest Wall Tenderness Extremities: No Clubbing, No Cyanosis, No Edema, Normal Pulses Results 06/26/16 04:07 06/26/16 10:18 Lab Results 06/25/16 06/25/16 06/25/16 13:09 13:09 13:09 WBC Hgb Hct Plt Count Potassium 4.3 Magnesium 2.0 Troponin I 0.02 B-Natriuretic Peptide 06/25/16 06/26/16 06/26/16 20:01 04:07 04:07 WBC 9.3 Hgb 10.9 L Hct 35.3 Plt Count 186 Potassium Magnesium Troponin I 0.00 B-Natriuretic Peptide 495 H 06/26/16 04:07 WBC Hgb Hct Plt Count Potassium Magnesium 1.9 Troponin I B-Natriuretic Peptide - Imaging and Cardiology Stress Test: pending Echo: report reviewed - EKG Interpretation EKG results cardiology: personally reviewed (Sinus rhythm with nonspecific T- wave changes) - VTE Documentation of Mechanical Device: Intermittent pneumatic compression device Consult Discharge Plan - Plan Referrals: Willie Estrada MD [Primary Care Provider] -
[2016-06-26 10:44] LABS: Albumin 3.3 g/dL (3.5-5.0); Bilirubin,Total 0.3 mg/dL (0.2-1.2); Calcium 9.1 mg/dL (8.6-10.8); Globulin 3.4 g/dL (2.4-3.5); Potassium 4.5 mEq/L (3.5-4.5); Total Protein 6.7 g/dL (6.0-8.3)
--- NOTE | 2016-06-26 13:36 | Internal Med Progress Note ---
Date of Encounter: 06/26/16 Time of Encounter: 09:45 - Assessment and plan (1) Cardiomyopathy Current Visit: Yes Status: Acute Assessment and plan: Echocardiogram revealing an ejection fraction of 15-20% with diastolic dysfunction. Cardiology is on board. We are attempting to obtain records from her prior studies as she has not been to this hospital recently. She is euvolemic on examination and denies chest pain or shortness of breath. Her main concern at this time is her chronic right leg pain. ITS Impressions Chest X-Ray 06/25/16 07:12 IMPRESSION: Cardiomegaly with postsurgical changes. No acute pneumonia or congestive heart failure. D/ / 06/25/2016 07:39:33 Macario Gonzalez MD / johanna Interpreting Provider: Macario Gonzalez MD Echo with imaging enhancement age impressions: LVEF 15-20% with severe global hypokinesis and regional variations. Severely dilated left atrium. Bioprosthetic valve with gradients are likely normal (no valve information available) with mild mitral regurgitation (not perivalvular) diastolic dysfunction, NOS. No diagnostic pulmonary hypertension RVSP may be underestimated with eccentric TR jet. (2) Chest pain Current Visit: Yes Status: Acute Assessment and plan: Patient currently denies chest pain or shortness of breath. Cardiology on board. Chest x-ray unremarkable. Abnormal urinalysis noted however urine culture negative and the patient denies dysuria. Appreciate cardiology recommendations, still attempting to obtain records from outside facility. Qualifiers: Chest pain type: other chest pain Qualified Code(s): R07.89 - Other chest pain; R07.8 - Other chest pain (3) H/O mitral valve replacement Current Visit: Yes Status: Chronic Assessment and plan: Awaiting records from [facility]. Cardiology on board. (4) Acute kidney insufficiency Current Visit: Yes Status: Acute Assessment and plan: Her lab values since admission have been consistent with chronic kidney disease stage IV however I do not have prior results to determine chronicity. Renal functioning stable, attempting to obtain records from [facility] to see what her prior renal functioning levels were at. Patient denies ever being told she had renal issues or chronic kidney disease. (5) DVT prophylaxis Current Visit: Yes Status: Acute Assessment and plan: IPC's ordered (6) Anxiety and depression Current Visit: Yes Status: Chronic (7) Skin sore Current Visit: Yes Status: Chronic Assessment and plan: Continue Doxy, follow-up outpatient (8) CAD (coronary artery disease) Current Visit: Yes Status: Chronic Qualifiers: Coronary Disease-Associated Artery/Lesion type: [place] artery [place] vs. transplanted heart: [place] heart Associated angina: angina presence unspecified Qualified Code(s): I25.10 - Atherosclerotic heart disease of [place] coronary artery without angina pectoris (9) Morbid obesity with BMI of 40.0-44.9, adult Current Visit: Yes Status: Chronic - Subjective Interval history: Patient seen and examined. On examination, patient resting supine in bed. At this time, patient denies chest pain or shortness of breath. She is complaining of chronic right leg pain. - Constitutional Vitals: Temp Pulse Resp BP Pulse Ox 98.2 F 68 20 131/62 95 06/26/16 11:31 06/26/16 11:31 06/26/16 11:31 06/26/16 11:31 06/26/16 11:31 General appearance: Present: cooperative, A&O X 3, morbidly obese, pleasant, no acute distress, answers questions appropriately - Head Head exam: Present: atraumatic, normocephalic - Eye Eye exam: Present: PERRL, conjuntiva pink, sclera anicteric Pupils: Present: PERRL - Neck Neck exam general surgery: Present: supple, trachea midline. Absent: lymphadenopathy - Respiratory Respiratory exam: Present: CTAB. Absent: accessory muscle use, rales, respiratory distress, rhonchi, wheezes - Cardiovascular Cardiovascular exam: Present: RRR, +S1, +S2. Absent: diastolic murmur, gallop, rubs, systolic murmur - GI/Abdominal GI/Abdominal exam: Present: normal bowel sounds, soft, no peritoneal signs. Absent: distended, tenderness - Extremities Exam Extremities exam: Present: warm, radial pulses palpable and symetrical. Absent : calf tenderness, cyanotic, pedal edema - Neurological Exam Neurological exam: Present: alert, CN II-XII intact, oriented X3, no focal deficits, strengths equal and symetr throughout. Absent: pronater drift, facial droop, speech deficit - Skin Skin exam: Present: dry, intact, pallor, warm Internal Medicine: Result - Labs CBC & Chem 7: 06/26/16 04:07 06/26/16 10:18 Labs: Short CBC 06/26/16 Range/Units 04:07 WBC 9.3 (4.3-11.1) K/mcL Hgb 10.9 L (11.5-15.4) g/dL Hct 35.3 (35.3-44.9) % Plt Count 186 (140-400) K/mcL Neutrophils # 5.4 (1.6-8.9) K/mcL BMP 06/25/16 06/26/16 13:09 10:18 Sodium 141 Potassium 4.3 4.5 Chloride 112 H Carbon Dioxide 21 BUN 36 H Creatinine 1.43 H Glucose 112 H Calcium 9.1 Cardiac Enzymes 06/25/16 06/25/16 Range/Units 13:09 20:01 Troponin I 0.02 0.00 (0-0.03) ng/mL Liver Function 06/26/16 Range/Units 10:18 Total Bilirubin 0.3 (0.2-1.2) mg/dL AST 19 (5-34) Units/L ALT 17 (0-55) Units/L Alkaline Phosphatase 111 (38-126) Units/L Albumin 3.3 L (3.5-5.0) g/dL Urine 06/25/16 Range/Units 14:42 Urine Color Yellow (Yellow) Urine Clarity Clear (Clear) Urine pH 6.0 (5.0-8.0) pH Units Ur Specific [place] 1.026 H (1.010-1.025) Urine Protein Negative (Neg-Trace) mg/dL Urine Glucose (UA) Normal (Normal) mg/dL - ABG Interpretation ABG results: PT/INR, D-dimer PT 11.0 Seconds (9.4-12.1) 06/25/16 06:49 - VTE Documentation of Mechanical Device: Intermittent pneumatic compression device Consult Discharge Plan - Plan Referrals: Willie Estrada MD [Primary Care Provider] -
[2016-06-26] MEDS ORDERED: Acetaminophen 325 MG TABLET PO PRN (13:52)
[2016-06-26] MEDS: *HR* HYDROcodone/Acet 5/325 mg TABLET PO PRN (21:12)
[2016-06-27 04:56] LABS: Calcium 8.8 mg/dL (8.6-10.8); Potassium 4.7 mEq/L (3.5-4.5)
[2016-06-27 05:04] LABS: Basophils % 0.3 %; Eosinophils # 0.2 K/mcL (0.0-0.6); Eosinophils % 2.5 %; Hematocrit 32.5 % (35.3-44.9); Hemoglobin 10.4 g/dL (11.5-15.4); Immature Granulocytes % 0.4 % (0-4); Lymphocytes # 2.8 K/mcL (0.6-4.6); Lymphocytes % 28.8 %; Mean Corpuscular Hemoglobin 28.2 pg (28.0-33.3); Mean Corpuscular Volume 88.1 fL (83.0-100.0); Mean Platelet Volume 13.2 fL (9.4-12.4); Monocytes # 0.6 K/mcL (0.0-1.3); Monocytes % 6.6 %; Neutrophils # 5.9 K/mcL (1.6-8.9); Nucleated Red Blood Cells 0.2 /100 WBC (0); Platelet Count 167 K/mcL (140-400); Red Blood Count 3.69 M/mcL (3.82-4.97); Red Cell Distribution Width 15.9 % (11.5-14.5); Segmented Neutrophils % 61.4 %
[2016-06-27] MEDS: 0.9 % Sodium Chloride 1,000 ML IVC SCH (05:35)
[2016-06-27] MEDS: *HR* Morphine 2 MG/ML SYRINGE IVP PRN ×2 (05:41→21:20)
[2016-06-27] MEDS: Gabapentin 100 MG CAPSULE PO SCH ×3 (09:02→21:14)
[2016-06-27] MEDS: Nystatin POWDER 30 GM BOTTLE TP SCH ×2 (09:02→21:15)
[2016-06-27] MEDS: Doxycycline 100 MG CAPSULE PO SCH ×2 (09:02→21:14)
[2016-06-27] MEDS: Aspirin Enteric Coated 81 MG Tablet PO SCH (09:02)
[2016-06-27] MEDS: clonazePAM 1 MG TABLET PO SCH ×2 (09:02→21:14)
[2016-06-27] MEDS: Metoprolol XL (24 HR) Succ 25 MG TAB.ER.24H PO SCH (09:02)
--- NOTE | 2016-06-27 10:29 | Nuclear Medicine Stress Report ---
Regadenoson Nuclear 2 day Name: Salome Buckner Date of Study: 06/26/2016 Date: 1955 Ht: 67.0 in Medical Record#: [id number] Age: 60 Wt: 254.0 lb Gender: Female Order #: [id number] Location: [facility] Room: [facility] Supervising Provider: Corey Santos CNP Reading Physician: Rolan Barone MD, [facility] Ordering Physician: Corey Santos CNP Primary Care Physician: None Stress Technologist: Jeri Cornejo, PLANT [employer]Y [employer]ER,[facility] Design Consultant: Farzad Heaton Indications: Coronary Artery Disease, Chest Pain Impression: Perfusion imaging was positive for ischemia - large sized severely reversible defect of the inferior wall. Anteroapical fixed defect consistent with infarct. Pharmacologic ECG was non diagnostic for ischemia. Patient had no chest pain with stress. Gated EF = 28%. The LV is dilated. There is no evidence of TID. History: Hypertension Hypercholesteremia Prior PCI Stress Test Summary: Stress Test Type: Pharmacologic Regadenoson 0.4mg/5ml given IV Baseline Information: Initial Heart Rate: 63 Blood Pressure: 118/64 Stress Information: Test Terminated Due to (primary): As per protocol Maximum Blood Pressure: 122/72 Maximum Heart Rate: 77 Percent Maximum Heart Rate Achieved: 48 Double Product: 9394 METS Reached: 1 Symptoms: Shortness of breath Nuclear Summary: SPECT myocardial perfusion imaging using Tc99m Sestamibi given intravenously was performed at rest and following cardiac stress testing. The resting images were obtained following initial dose of 31.0 mCi. Following stress an additional dose of 33.6 mCi was given at peak exercise or 30 seconds post regadenoson infusion. Medication Given: Time Medication Dose Units Route Findings: Stress Note * Resting ECG demonstrated normal sinus rhythm. * Resting ECG demonstrated non-specific ST-T wave changes. * No baseline arrhythmias were noted. * Pharmacologic stress ECG is non diagnostic for ischemia due to failure to reach target heartrate. * Rare PVCs noted during stress. * Patient had no chest pain during stress. Hemodynamic responses * Normal hemodynamic responses to pharmacologic stress. Gated EF % * Gated EF = 28%. Left Ventricle * The left ventricle is dilated. Global Hypokinesis in Stress. * Global Hypokinesis in Stress. NORMALS * All other segmental perfusion normal in stress. * All other segmental perfusion normal in rest. Inferior Perfusion Stress * The inferior segment shows a severe reduction in perfusion. Anterior Perfusion Rest * No evidence of uptake apical anterior. Anterior Perfusion Stress * No evidence of uptake in the apical anterior segment. TID * No evidence of transient ischemic dilatation. Updated by Rolan Barone MD, FACC on 06/27/2016 10:21:35 AM electronically signed on 06/27/2016 10:23:14 AM with status of Final
--- NOTE | 2016-06-27 10:33 | Cardiology Progress Note ---
Date of Encounter: 06/27/16 Time of Encounter: 10:31 Assessment and Plan (1) Chest pain Current Visit: Yes Status: Acute No recurrent chest pain or neck pain since yesterday morning. Reports pain similar to prior ID on admission with no recurrence during hospital stay. Somewhat tender on palpation. Troponins negative x 3. Reports [facility] 1 year ago prior to mitral valve replacement without intervention at [facility]. Requesting records. Echocardiogram revealed severely reduced EF at 15-20%. Bioprosthetic mitral valve in place with gradients that are likely normal, there is no valve information at this time. Mild mitral regurgitation but is not perivalvular. She denies recurrent chest pain and is currently euvolemic on exam. If stress test is negative would recommend close outpatient follow-up with request records to compare. Patient reports history of CHF. ASA, Statin, BB. Qualifiers: Chest pain type: other chest pain Qualified Code(s): R07.89 - Other chest pain; R07.8 - Other chest pain (2) CAD (coronary artery disease) Current Visit: Yes Status: Chronic Hx of CAD, MIs, multiple PCIs. Reports [facility] 1 year ago prior to Mitral valve surgery without intervention. ASA, Statin, BB. Qualifiers: Coronary Disease-Associated Artery/Lesion type: [place] artery [place] vs. transplanted heart: [place] heart Associated angina: angina presence unspecified Qualified Code(s): I25.10 - Atherosclerotic heart disease of [place] coronary artery without angina pectoris (3) H/O mitral valve replacement Current Visit: Yes Status: Chronic Hx of mitral valve replacement per pt at [facility] 1 year ago. Request records. (4) Cardiomyopathy Current Visit: Yes Status: Acute TTE reveals EF severely reduced at 15-20%. Unclear if new. Awaiting records. [facility] one year ago prior to mitral valve surgery. Pt. poor historian. Currently euvolemic. Continue metoprolol succinate. No SAM inhibitor secondary to possible IVANA. Kidney function improving with holding Lasix. No previous labs to compare. Records have been ordered. Low sodium diet. Daily weights and strict I&O. No overt CHF on exam.CXR shows no heart failure. Mildly elevated BNP. Lasix on hold secondary to IVANA. Creatinine improving. CHF education. Close outpatient follow-up recommended. Qualifiers: Cardiomyopathy type: unspecified Qualified Code(s): I42.9 - Cardiomyopathy , unspecified Discussion w patient/family: The assessment and plan as outlined above was discussed with the patient and/or family members who expressed understanding and agreement. All questions were answered. Thank you for involving us in the care of your patient. Please call with any questions. Subjective Principal diagnosis: Chest pain Interval history: 2 day stress test pending. Patient denies recurrent chest pain. Complains of lower back pain going down her right hip. Objective Vital Signs, Last 4 Hours Temp Pulse Resp BP Pulse Ox 06/27/16 07:28 98.1 F 75 16 131/73 95 General: Conversant, No Apparent Distress, Other (Morbidly obese female) HEENT: Atraumatic, Normocephaly, Mucus Membranes Moist Neck: No JVD, Normal carotid pulses Cardiac: Reg Rate and Rhythm, Normal S1 and S2, No Murmur Lungs: Normal Breath Sounds, No Wheeze, Rales, Rhonchi Neuro: Alert and responsive, No focal deficits noted Abdomen: Soft, Non-Tender Skin: No rashes noted on visualized skin Musculoskeletal: No Chest Wall Tenderness Extremities: No Clubbing, No Cyanosis, No Edema, Normal Pulses Results 06/27/16 04:03 06/27/16 04:03 Lab Results 06/26/16 06/27/16 06/27/16 10:18 04:03 04:03 WBC 9.6 Hgb 10.4 L Hct 32.5 L Plt Count 167 Sodium 141 138 Potassium 4.5 4.7 H Chloride 112 H 113 H Carbon Dioxide 21 14 L BUN 36 H 32 H Creatinine 1.43 H 1.36 H Glucose 112 H 96 Calcium 9.1 8.8 Total Bilirubin 0.3 AST 19 ALT 17 Alkaline Phosphatase 111 - Imaging and Cardiology Echo: report reviewed - VTE Documentation of Mechanical Device: Intermittent pneumatic compression device Consult Discharge Plan - Plan Referrals: Willie Estrada MD [Primary Care Provider] -
--- NOTE | 2016-06-27 14:13 | Internal Med Progress Note ---
Date of Encounter: 06/27/16 Time of Encounter: 12:30 - Assessment and plan (1) Cardiomyopathy Current Visit: Yes Status: Acute Assessment and plan: Echocardiogram revealing an ejection fraction of 15-20% with diastolic dysfunction. Cardiology is on board. We are attempting to obtain records from her prior studies as she has not been to this hospital recently. She is euvolemic on examination and denies chest pain or shortness of breath. Her main concern at this time is her chronic low back pain, her chronic right leg pain has resolved. Stress test abnormal, plan is for left heart catheter tomorrow. Patient denies concerns or questions. ITS Impressions Chest X-Ray 06/25/16 07:12 IMPRESSION: Cardiomegaly with postsurgical changes. No acute pneumonia or congestive heart failure. D/ / 06/25/2016 07:39:33 Macario Gonzalez MD / johanna Interpreting Provider: Macario Gonzalez MD Echo with imaging enhancement age impressions: LVEF 15-20% with severe global hypokinesis and regional variations. Severely dilated left atrium. Bioprosthetic valve with gradients are likely normal (no valve information available) with mild mitral regurgitation (not perivalvular) diastolic dysfunction, NOS. No diagnostic pulmonary hypertension RVSP may be underestimated with eccentric TR jet. 2 day nuclear stress test impression: Perfusion imaging was positive for ischemia-large sized severely reversible defect of the inferior wall. Anteroapical fixed defect consistent with infarct. Pharmacologic ECG was nondiagnostic for ischemia. Patient had no chest pain with stress. Gated ejection fraction equals 28%. The LV is dilated. There is no evidence of TID. (2) Chest pain Current Visit: Yes Status: Resolved Assessment and plan: Patient currently denies chest pain or shortness of breath. Cardiology on board. Chest x-ray unremarkable. Abnormal urinalysis noted however urine culture negative and the patient denies dysuria. Left heart catheter tomorrow. Again, still trying to obtain old records to find patient's history regarding her renal functioning and cardiac history. Qualifiers: Chest pain type: other chest pain Qualified Code(s): R07.89 - Other chest pain; R07.8 - Other chest pain (3) H/O mitral valve replacement Current Visit: Yes Status: Chronic Assessment and plan: Awaiting records from [facility]. Cardiology on board. (4) Acute kidney insufficiency Current Visit: Yes Status: Acute Assessment and plan: Her lab values since admission have been consistent with chronic kidney disease stage IV, now improved to stage III, however I do not have prior results to determine chronicity. Renal functioning stable and improving daily, attempting to obtain records from [facility] to see what her prior renal functioning levels were at. Patient denies ever being told she had renal issues or chronic kidney disease although she is a remarkably poor historian. (5) DVT prophylaxis Current Visit: Yes Status: Acute Assessment and plan: IPC's ordered (6) Anxiety and depression Current Visit: Yes Status: Chronic (7) Skin sore Current Visit: Yes Status: Chronic Assessment and plan: Continue Doxy, follow-up outpatient (8) CAD (coronary artery disease) Current Visit: Yes Status: Chronic Qualifiers: Coronary Disease-Associated Artery/Lesion type: [place] artery [place] vs. transplanted heart: [place] heart Associated angina: angina presence unspecified Qualified Code(s): I25.10 - Atherosclerotic heart disease of [place] coronary artery without angina pectoris (9) Morbid obesity with BMI of 40.0-44.9, adult Current Visit: Yes Status: Chronic - Subjective Interval history: Patient seen and examined. On examination, patient sitting upright in bed eating lunch. She denies chest pain or shortness of breath. She complains of her chronic low back pain but states her right leg pain from yesterday has resolved. She states she is eating well. - Constitutional Vitals: Temp Pulse Resp BP Pulse Ox 98.4 F 93 19 106/72 96 06/27/16 11:10 06/27/16 11:10 06/27/16 11:10 06/27/16 11:10 06/27/16 11:10 General appearance: Present: cooperative, A&O X 3, morbidly obese, pleasant, no acute distress, answers questions appropriately - Head Head exam: Present: atraumatic, normocephalic - Eye Eye exam: Present: PERRL, conjuntiva pink, sclera anicteric Pupils: Present: PERRL - Neck Neck exam general surgery: Present: supple, trachea midline. Absent: lymphadenopathy - Respiratory Respiratory exam: Present: decreased breath sounds. Absent: accessory muscle use, rales, respiratory distress, rhonchi, wheezes - Cardiovascular Cardiovascular exam: Present: RRR, +S1, +S2. Absent: diastolic murmur, gallop, rubs, systolic murmur - GI/Abdominal GI/Abdominal exam: Present: normal bowel sounds, soft, no peritoneal signs. Absent: distended, tenderness - Extremities Exam Extremities exam: Present: warm, radial pulses palpable and symetrical. Absent : calf tenderness, cyanotic, pedal edema - Neurological Exam Neurological exam: Present: alert, CN II-XII intact, oriented X3, no focal deficits, strengths equal and symetr throughout. Absent: pronater drift, facial droop, speech deficit - Skin Skin exam: Present: dry, intact, pallor, warm Internal Medicine: Result - Labs CBC & Chem 7: 06/27/16 04:03 06/27/16 04:03 Labs: Short CBC 06/27/16 Range/Units 04:03 WBC 9.6 (4.3-11.1) K/mcL Hgb 10.4 L (11.5-15.4) g/dL Hct 32.5 L (35.3-44.9) % Plt Count 167 (140-400) K/mcL Neutrophils # 5.9 (1.6-8.9) K/mcL BMP 06/27/16 04:03 Sodium 138 Potassium 4.7 H Chloride 113 H Carbon Dioxide 14 L BUN 32 H Creatinine 1.36 H Glucose 96 Calcium 8.8 - ABG Interpretation ABG results: PT/INR, D-dimer PT 11.0 Seconds (9.4-12.1) 06/25/16 06:49 - VTE Documentation of Mechanical Device: Intermittent pneumatic compression device Consult Discharge Plan - Plan Referrals: Willie Estrada MD [Primary Care Provider] -
[2016-06-28] MEDS: *HR* Morphine 2 MG/ML SYRINGE IVP PRN ×2 (03:57→20:01)
[2016-06-28 05:18] LABS: INR 1.2; Prothrombin Time 12.8 Seconds (9.4-12.1)
[2016-06-28 05:30] LABS: Calcium 8.8 mg/dL (8.6-10.8); Potassium 4.2 mEq/L (3.5-4.5)
[2016-06-28 05:39] LABS: Basophils % 0.3 %; Eosinophils # 0.3 K/mcL (0.0-0.6); Eosinophils % 3.1 %; Hematocrit 32.9 % (35.3-44.9); Hemoglobin 10.2 g/dL (11.5-15.4); Immature Granulocytes % 0.4 % (0-4); Lymphocytes % 31.8 %; Mean Corpuscular Hemoglobin 27.9 pg (28.0-33.3); Mean Corpuscular Volume 90.1 fL (83.0-100.0); Mean Platelet Volume 12.9 fL (9.4-12.4); Monocytes # 0.7 K/mcL (0.0-1.3); Monocytes % 7.3 %; Neutrophils # 5.4 K/mcL (1.6-8.9); Nucleated Red Blood Cells 0.3 /100 WBC (0); Platelet Count 186 K/mcL (140-400); Red Blood Count 3.65 M/mcL (3.82-4.97); Segmented Neutrophils % 57.1 %
[2016-06-28] MEDS: 0.9 % Sodium Chloride 1,000 ML IVC SCH (05:58)
--- NOTE | 2016-06-28 10:35 | Internal Med Progress Note ---
Date of Encounter: 06/28/16 Time of Encounter: 09:30 - Assessment and plan (1) Cardiomyopathy Current Visit: Yes Status: Acute Assessment and plan: Echocardiogram revealing an ejection fraction of 15-20% with diastolic dysfunction. Cardiology is on board. We are attempting to obtain records from her prior studies as she has not been to this hospital recently- again have requested records from [place] [place] that unable to be obtained over the weekend. She is euvolemic on examination and denies chest pain or shortness of breath. Her main concern at this time is her chronic low back pain, her chronic right leg pain has resolved. Stress test abnormal, plan is for left heart catheter later today. Patient denies concerns or questions. ITS Impressions Chest X-Ray 06/25/16 07:12 IMPRESSION: Cardiomegaly with postsurgical changes. No acute pneumonia or congestive heart failure. D/ / 06/25/2016 07:39:33 Macario Gonzalez MD / johanna Interpreting Provider: Macario Gonzalez MD Echo with imaging enhancement age impressions: LVEF 15-20% with severe global hypokinesis and regional variations. Severely dilated left atrium. Bioprosthetic valve with gradients are likely normal (no valve information available) with mild mitral regurgitation (not perivalvular) diastolic dysfunction, NOS. No diagnostic pulmonary hypertension RVSP may be underestimated with eccentric TR jet. 2 day nuclear stress test impression: Perfusion imaging was positive for ischemia-large sized severely reversible defect of the inferior wall. Anteroapical fixed defect consistent with infarct. Pharmacologic ECG was nondiagnostic for ischemia. Patient had no chest pain with stress. Gated ejection fraction equals 28%. The LV is dilated. There is no evidence of TID. (2) Chest pain Current Visit: Yes Status: Resolved Assessment and plan: Patient currently denies chest pain or shortness of breath. Cardiology on board. Chest x-ray unremarkable. Abnormal urinalysis noted however urine culture negative and the patient denies dysuria. Left heart catheter today. Again, still trying to obtain old records to find patient's history regarding her renal functioning and cardiac history. Qualifiers: Chest pain type: other chest pain Qualified Code(s): R07.89 - Other chest pain; R07.8 - Other chest pain (3) H/O mitral valve replacement Current Visit: Yes Status: Chronic Assessment and plan: Awaiting records from [facility]. Cardiology on board. (4) Acute kidney insufficiency Current Visit: Yes Status: Acute Assessment and plan: Her lab values since admission have improved from CKD$ now to CKD3 levels; do not know her baseline- awaiting records from [facility]. Renal functioning stable and improving daily, patient denies ever being told she had renal issues or chronic kidney disease although she is a remarkably poor historian. (5) DVT prophylaxis Current Visit: Yes Status: Acute Assessment and plan: IPC's ordered (6) Anxiety and depression Current Visit: Yes Status: Chronic (7) Skin sore Current Visit: Yes Status: Chronic Assessment and plan: Continue Doxy, follow-up outpatient (8) CAD (coronary artery disease) Current Visit: Yes Status: Chronic Qualifiers: Coronary Disease-Associated Artery/Lesion type: [place] artery [place] vs. transplanted heart: [place] heart Associated angina: angina presence unspecified Qualified Code(s): I25.10 - Atherosclerotic heart disease of [place] coronary artery without angina pectoris - Subjective Interval history: Patient seen and examined. On examination, patient asleep in bed. She wakened easily to voice and complained of her chronic low back pain but denied chest pain or shortness of breath. - Constitutional Vitals: Temp Pulse Resp BP Pulse Ox 98.4 F 65 15 98/58 98 06/28/16 07:07 06/28/16 07:07 06/28/16 07:07 06/28/16 07:07 06/28/16 07:07 General appearance: Present: cooperative, A&O X 3, pleasant, no acute distress, obese, answers questions appropriately - Head Head exam: Present: atraumatic, normocephalic - Eye Eye exam: Present: PERRL, conjuntiva pink, sclera anicteric Pupils: Present: PERRL - Neck Neck exam general surgery: Present: supple, trachea midline. Absent: lymphadenopathy - Respiratory Respiratory exam: Present: decreased breath sounds. Absent: accessory muscle use, rales, respiratory distress, rhonchi, wheezes - Cardiovascular Cardiovascular exam: Present: RRR, +S1, +S2. Absent: diastolic murmur, gallop, rubs, systolic murmur - GI/Abdominal GI/Abdominal exam: Present: normal bowel sounds, soft, no peritoneal signs. Absent: distended, tenderness - Extremities Exam Extremities exam: Present: pedal edema (trace, non-pitting), warm, radial pulses palpable and symetrical. Absent: calf tenderness, cyanotic - Neurological Exam Neurological exam: Present: alert, CN II-XII intact, oriented X3, no focal deficits, strengths equal and symetr throughout. Absent: pronater drift, facial droop, speech deficit - Skin Skin exam: Present: dry, intact, pallor, warm Internal Medicine: Result - Labs CBC & Chem 7: 06/28/16 04:17 06/28/16 04:17 Labs: Short CBC 06/28/16 Range/Units 04:17 WBC 9.5 (4.3-11.1) K/mcL Hgb 10.2 L (11.5-15.4) g/dL Hct 32.9 L (35.3-44.9) % Plt Count 186 (140-400) K/mcL Neutrophils # 5.4 (1.6-8.9) K/mcL BMP 06/28/16 04:17 Sodium 140 Potassium 4.2 Chloride 110 H Carbon Dioxide 21 BUN 29 H Creatinine 1.30 H Glucose 93 Calcium 8.8 - ABG Interpretation ABG results: PT/INR, D-dimer PT 12.8 Seconds (9.4-12.1) H 06/28/16 04:17 - VTE Documentation of Mechanical Device: Intermittent pneumatic compression device Consult Discharge Plan - Plan Referrals: Willie Estrada MD [Primary Care Provider] - (Please call office to set up first visit )
--- NOTE | 2016-06-28 14:50 | Event Note ---
Date of Encounter: 06/28/16 Time of Encounter: 14:00 - Cardiology Event Note Awaiting C. Reports received, EF newly reduced compare to previous. Stress test abnormal with inferior ischemia. Will proceed with C as discussed.
--- NOTE | 2016-06-28 15:57 | Pre-Sedation Evaluation ---
Pre-sedation evaluation - Pre-sedation checklist Date of procedure: 06/28/16 Procedure: [facility] Recent Vitals: Last Vital Signs Temp 98.5 F 06/28/16 14:36 Pulse 66 06/28/16 14:36 Resp 16 06/28/16 14:36 BP 102/54 06/28/16 14:36 Pulse Ox 93 06/28/16 14:36 H&P (including ROS) documented in medical record: Yes Previous reaction to sedatives/anesthetics: No Dietary Status: NPO after Midnight Airway Assessment: Patient can open mouth completely, TMJ function normal ASA Classification *see protocol: CLASS II-Mild systemic disease Plan of Care: Pt appropriate candidate for procedure/moderate/conscious sedation , Risks/benefits of procedure/sedation discussed w/ patient/family
[2016-06-28] MEDS ORDERED: Heparin 1,000 UNITS/500 mL NS 500 ML ONE (17:06)
[2016-06-28] MEDS ORDERED: *HR* Heparin 10,000 UNIT/10 ML VIAL ONE (17:06)
[2016-06-28] MEDS ORDERED: 0.9 % Sodium Chloride 1,000 ML ONE (17:06)
[2016-06-28] MEDS ORDERED: *HR* Midazolam HCl 2 MG/2 ML VIAL ONE (17:26)
[2016-06-28] MEDS ORDERED: *HR* FentaNYL (PF) 100 MCG/2 ML VIAL ONE (17:26)
--- NOTE | 2016-06-28 18:11 | Invasive Diagnostic Lab Proc ---
Name: Salome Buckner Date of Study: 06/28/2016 Date: 1955 Ht: 67.0in Medical Record#: [id number] Age: 60 Wt: 255.74lb Gender: Female BSA: 2.24 Order #: [id number] BMI: 40.04 Physicians Procedure Physician: Rolan Barone MD, FACC Referring MD: Referring MD: Staff Name Position Time In Lise Ramos RN Train Brakeman 05:29 PM Courtney Bone RN Monitor 05:29 PM Teresa Peña RT (R) Scrub 05:30 PM Екатерина Spann RT (R) Monitor 05:30 PM Indications Indication Abnormal Test - Stress Procedures Performed Procedure L HRT ARTERY/VENTRICLE ANGIO Pre-Procedure Checklist Informed consent is complete signed and on chart. H\\T\\P is on chart. ID band is on and ID verified with patient. Patient NPO for procedure The procedure was described for the patient and questions were answered. Blood Pressure: 106/72 ECG is on chart. Rhythm: NSR Plan of Care Patient will tolerate the procedure without complications. Adequate level of comfort will be maintained. Hemodynamics will remain stable Patient will recover from procedure without complications. Respiratory function will be maintained. Cardiac rhythm will remain stable. Patient temperature will be maintained. Patient and/or family have verbalized understanding of the procedure. Patient Education Chief Complaint/Reason for Test: Cardiac Cath Developmental Category: Geriatric (65+ years) Developmentally Appropriate for Age: Yes Learning Barriers: None Education Needs: Procedure Education Method: Verbal Information Taught: Cardiac Cath Educational Evaluation: Able to repeat information Intravenous Access Time IV Size Location DC'd Fluid/Drip Rate Units RN 05:36 PM Started with 20g 1 1/4" Lt Antecubital 0.9NaCl 25 ml/hr Lise Ramos RN Allergies No Known Allergies NKA Vital Signs Time BP (mmHg) HR (bpm) O2 Sat. RR (bpm) LOC 106 / 72 93 96 % 19 5 = Fully awake and oriented or at pre-proc level 05:41 PM / % 4 = Oriented but drowsy 05:41 PM 141 / 45 70 95 % 27 05:46 PM 139 / 56 68 96 % 16 05:51 PM 150 / 67 67 94 % 20 05:55 PM 142 / 58 65 95 % 05:41 PM / % 4 = Oriented but drowsy Procedural Medications Time Medication Dose Units Method Given By 05:40 PM Versed 2 mg Intravenous Lise Ramos RN 05:40 PM Fentanyl 50 mcg Intravenous Lise Ramos RN 05:41 PM Lidocaine 2% 20 ml Subcutaneous Rolan Barone MD, [facility] 05:53 PM Oxygen 2 L/min nasal cannula Lise Ramos RN ASA Classification: CLASS II- Mild systemic disease (i.e. well-controlled diabetes, hypertension, asthma, cigarette smoking) Vandana Score Preprocedure Postprocedure Activity 2- Moves 4 extremities sustained head lift Activity 2- Moves 4 extremities sustained head lift Circulation 2- SBP +/= 20 points of pre-anesthetic level Circulation 2- SBP +/= 20 points of pre-anesthetic level Consciousness 2- Awake and alert oriented x 3 Consciousness 2- Awake and alert oriented x 3 O2 Saturation 2- Able to maintain O2 satruation of 92% on room air O2 Saturation 2- Able to maintain O2 satruation of 92% on room air Respiratory 2- Able to deep breathe and cough well Respiratory 2- Able to deep breathe and cough well Total Score 10 Total Score 10 Contrast Agent: Isovue Diagnostic Contrast: 67 ml Total Contrast: 67 ml Fluoro Dose: 166 mGy Procedure Log Time Note Enter By 05:27 PM CathStat 05:29 PM Pt arrived to laborer 1 at 17:29 [email or web address] 05:29 PM Lise Ramos RN Position: Train Brakeman Time in: 17:29 [email or web address] 05:30 PM Courtney Bone RN Position: Monitor Time in: 17:29 [email or web address] 05:30 PM Teresa Peña RT (R) Position: Scrub Time in: 17:30 [email or web address] 05:30 PM Екатерина Spann RT (R) Position: Monitor Time in: 17:30 [email or web address] 05:30 PM Patient charges- Angio tray pack, Navilyst 3mm J, Pulse Oximetry and ACIST tubing and transducer [email or web address] 05:30 PM Case Delayed Previous case ran long [email or web address] 05:31 PM Hair removed from procedure site in procedure lab using clippers. Bilateral groin prepped with Chloraprep by Екатерина Spann RT (R), safety strap applied then patient was draped. Skin intact. [email or web address] 05:31 PM Physician arrived 17:31 [email or web address] 05:31 PM ASA Class CLASS II- Mild systemic disease (i.e. well-controlled diabetes, hypertension, asthma, cigarette smoking) [email or web address] 05:31 PM Meet and greet completed [email or web address] 05:31 PM Sign in performed according to hospital policy. [email or web address] 05:31 PM Procedure start 17:31 [email or web address] 05:36 PM Reference ECG taken 05:37 PM IV Supplies used: J loop Angio Cath. [email or web address] 05:40 PM Vitals capture started with the following parameters, Patient=Adult, Interval=5 min, Initial Vwqwxlwh=426 mmHg, Deflation Rate=5 mmHg, Cuff placed on Left Leg 05:40 PM Time: 17:40 Versed 2 mg Intravenous Given by Lise Ramos RN [email or web address] 05:41 PM Time: 17:40 Fentanyl 50 mcg Intravenous Given by Lise Ramos [email or web address] 05:41 PM Time: 17:41 Patient comfortable and pain free: Yes [email or web address] 05:41 PM Time: 17:41LOC: 4 = Oriented but drowsy [email or web address] 05:41 PM Time out performed according to hospital policy [email or web address] 05:41 PM Time: 17:41 20 ml Lidocaine 2% to right groin Subcutaneous Given by Rolan Barone MD, [facility] [email or web address] 05:41 PM Time: 17:53 Oxygen on at 2 L/min per nasal cannula by Lise Ramos RN [email or web address] 05:41 PM Recorded ECG: HR=70 Condition=Condition 1 05:41 PM HR=70 bpm, IXBK=840/45 mmhg, SpO2=95.0 %, Resp=27 B/min, Comment=NSR 05:42 PM Reference ECG taken 05:42 PM Pressure channel 1 zero failed. 05:42 PM Pressure channel 1 zero failed. 05:42 PM Pressure channel 1 zero failed. 05:42 PM Pressure channel 1 zero failed. 05:42 PM Pressure channel 1 zero failed. 05:42 PM Pressure channel 1 zero failed. 05:43 PM Pressure channel 1 zeroed. 05:43 PM Access obtained by percutaneous puncture. 5Fr 10cm Terumo [place] sheath placed in right Femoral artery. [id number] [email or web address] 05:43 PM 5Fr FL 4 catheter inserted over the wire [facility] [email or web address] 05:43 PM 0.035 145cm Navilyst 3mmJ wire [id number] [email or web address] 05:44 PM LCA angiography performed in multiple views. [email or web address] 05:44 PM Recorded Pressure: Ao, HR=69, Condition=Condition 1 (Aorta) Ao 103/63/80 05:45 PM Lesion found in Proximal LAD. Pre Stenosis: 40 Pre NICOLE Flow: [email or web address] 05:45 PM Lesion found in Mid LAD. Pre Stenosis: 20 Pre NICOLE Flow: [email or web address] 05:46 PM Lesion found in Mid Circumflex. Pre Stenosis: 30 Pre NICOLE Flow: [email or web address] 05:46 PM Catheter removed [email or web address] 05:46 PM 5Fr FR 4 catheter inserted over the wire DNC [email or web address] 05:46 PM HR=68 bpm, YDIS=646/56 mmhg, SpO2=96.0 %, Resp=16 B/min, Comment=NSR 05:46 PM Catheter selectively placed in left ventricle [email or web address] 05:46 PM Recorded Pressure: LV, HR=70, Condition=Condition 1 (Left Ventricle) LV 119/5/55 05:46 PM Recorded Pressure: LV, HR=70, Condition=Condition 1 (Left Ventricle) LV 129/-3/62 05:46 PM Bolus angiogram of left Ventricle complete: 10 ml/sec for a total of 30 mls [email or web address] 05:47 PM Recorded Pressure: LV, HR=69, Condition=Condition 1 (Left Ventricle) LV 129/-1/42 05:47 PM Recorded Pressure: LV, HR=69, Condition=Condition 1 (Left Ventricle) LV 126/0/49 05:47 PM Recorded Pressure: LV, Ao, HR=69, Condition=Condition 1 (Left Ventricle) LV 125/-3/52, (Aorta) Ao 131/55/84 05:48 PM RCA angiography performed in multiple views. [email or web address] 05:48 PM Recorded Pressure: Ao, HR=70, Condition=Condition 1 (Aorta) Ao 101/62/80 05:48 PM Lesion found in Distal RCA. Pre Stenosis: 100 Pre NICOLE Flow: [email or web address] 05:48 PM Catheter removed [email or web address] 05:49 PM Bolus angiogram of right Femoral complete: 4 ml/sec for a total of 7 mls [email or web address] 05:49 PM Procedure completed at 17:49 [email or web address] 05:50 PM Procedure completed at 17:49 [email or web address] 05:50 PM Sign out completed: Radiation Dose 166.16 mGy Fluoro Time: 1.0 Isovue 370 - 200ml contrast 67 ml given by Rolan Barone MD, FACC. Complications: NoneCardiac Rehab Consult needed: NoConfirmed administered medications: Yes [email or web address] 05:50 PM Isovue 370 - 200ml,1 Bottle(s) used. [email or web address] 05:50 PM Arterial sheath pulled, Mynx closure device used and was Successful S/N. [email or web address] 05:50 PM Post ECG NSR [email or web address] 05:51 PM Post Blood Pressure 139/56 [email or web address] 05:51 PM 17:51 Post Pulses Bilateral DP \\T\\ PT 2+ [email or web address] 05:51 PM Information taught Cardiac Cath and Mynx [email or web address] 05:51 PM Education needs Procedure, Plan of Care, and Disease Process [email or web address] 05:51 PM Learning barriers :None [email or web address] 05:51 PM Education Methods Verbal [email or web address] 05:51 PM Education evaluation Able to repeat information [email or web address] 05:51 PM Delay to floor No [email or web address] 05:51 PM HR=67 bpm, GMFY=441/67 mmhg, SpO2=94.0 %, Resp=20 B/min, Comment=NSR 05:51 PM Family placed in not available. [email or web address] 05:51 PM Complications: None [email or web address] 05:51 PM Fluoro Time: 1.0 [email or web address] 05:51 PM Isovue 370 - 200ml contrast 67 ml given by Rolan Barone MD, FACC. [email or web address] 05:51 PM Radiation Dose 166.16 mGy [email or web address] 05:55 PM Site status No bleeding/hematoma - Rt Groin as reported by Teresa Peña RT (R) at 17:55 [email or web address] 05:55 PM Opsite applied [email or web address] 05:55 PM HR=65 bpm, QJQK=795/58 mmhg, SpO2=95 % 05:56 PM Time: 17:41LOC: 4 = Oriented but drowsy [email or web address] 05:56 PM Time: 17:41 Patient comfortable and pain free: Yes [email or web address] 05:58 PM Report given to Viktoriya FOFANA Pt taken to Room #35. 17:57 [email or web address] 05:58 PM Patient out of room: 17:58 [email or web address] Complications Complication None None Hemodynamics Pressures Site Systolic/A Wave Diastolic/V Wave Mean AO 103 63 80 LV 119 5 55 LV 126 0 49 LV 125 -3 52 AO 131 55 84 AO 101 62 80 LV 129 -3 62 LV 129 -1 42 Post Procedure Information Blood Pressure: 139/56 mmHg Rhythm: NSR Post procedural instructions were given Closure Device Time Device Success/Fail 06/28/2016 5:52:00 PM MynxGrip Yes Site Checks Time Location Status Staff Sheath In? Note 05:55 PM Rt Groin No bleeding/hematoma Teresa Peña RT (R) Pulses Time Site Pre-Procedure Post-Procedure Note Bilateral DP \\T\\ PT 2+ Bilateral radial 2+ 5:51:00 PM Bilateral DP \\T\\ PT 2+ Updated by Екатерина Spann RT(R) on 06/28/2016 6:05:01 PM electronically signed on 06/28/2016 6:05:40 PM with status of Final
[2016-06-28] MEDS: Aspirin Enteric Coated 81 MG Tablet PO SCH (19:07)
[2016-06-28] MEDS: Metoprolol XL (24 HR) Succ 25 MG TAB.ER.24H PO SCH (19:08)
[2016-06-28] MEDS: Doxycycline 100 MG CAPSULE PO SCH ×2 (19:08→20:01)
[2016-06-28] MEDS: Nystatin POWDER 30 GM BOTTLE TP SCH ×2 (19:08→20:02)
[2016-06-28] MEDS: clonazePAM 1 MG TABLET PO SCH ×2 (19:08→20:01)
[2016-06-28] MEDS: Gabapentin 100 MG CAPSULE PO SCH ×2 (19:08→20:01)
[2016-06-29 04:35] LABS: BUN/Creatinine Ratio 23 (6-26); Blood Urea Nitrogen 25 mg/dL (7-20); Calcium 8.6 mg/dL (8.6-10.8); Carbon Dioxide 15 mEq/L (19-29); Chloride 113 mEq/L (98-109); Glucose 107 mg/dL (70-99); Osmolality,Calculated 289 (280-300); Potassium 4.5 mEq/L (3.5-4.5); Sodium 137 mEq/L (136-145); eGFR For African Americans > 60 (> 60); eGFR For Non-African Americans 50 (> 60)
[2016-06-29 05:36] LABS: Basophils % 0.4 %; Eosinophils # 0.2 K/mcL (0.0-0.6); Eosinophils % 2.5 %; Hematocrit 30.9 % (35.3-44.9); Hemoglobin 9.7 g/dL (11.5-15.4); Immature Granulocytes % 0.5 % (0-4); Immature Platelets 8.8 % (1.1-6.1); Lymphocytes # 2.4 K/mcL (0.6-4.6); Lymphocytes % 28.7 %; Mean Corpuscular HGB Conc 31.4 g/dL (31.6-35.5); Mean Platelet Volume 12.2 fL (9.4-12.4); Monocytes # 0.7 K/mcL (0.0-1.3); Monocytes % 8.6 %; Neutrophils # 4.9 K/mcL (1.6-8.9); Platelet Count 180 K/mcL (140-400); Red Blood Count 3.47 M/mcL (3.82-4.97); Red Cell Distribution Width 15.9 % (11.5-14.5); Segmented Neutrophils % 59.3 %
[2016-06-29] MEDS: *HR* Morphine 2 MG/ML SYRINGE IVP PRN ×2 (05:52→13:36)
[2016-06-29] MEDS: clonazePAM 1 MG TABLET PO SCH (07:38)
[2016-06-29] MEDS: Doxycycline 100 MG CAPSULE PO SCH (07:38)
[2016-06-29] MEDS: Metoprolol XL (24 HR) Succ 25 MG TAB.ER.24H PO SCH (07:38)
[2016-06-29] MEDS: Gabapentin 100 MG CAPSULE PO SCH ×2 (07:38→13:35)
[2016-06-29] MEDS: Aspirin Enteric Coated 81 MG Tablet PO SCH (07:38)
[2016-06-29] MEDS: Nystatin POWDER 30 GM BOTTLE TP SCH (07:38)
--- NOTE | 2016-06-29 08:46 | Invasive Diagnostic Lab ---
Name: Salome Buckner Date of Study: 06/28/2016 Date: 1955 Ht: 170.2 cm /67.0 in Medical Record#: [id number] Age: 60 Wt: 116. 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 Aggressive risk factor modification. History/Risk Factors: COPD CAD DVT CP SEIZURES Dyslipidemia CHF within 2 weeks Procedure Access obtained in the right Femoral artery by percutaneous puncture Complications: None, None Contrast: Isovue 67ml Closure Device: MynxGrip Hemodynamics: Pressures Site Systolic/ A Wave Diastolic/ V Wave End Diastolic/ Mean HR AO 103 63 80 69 LV 119 5 55 70 LV 126 0 49 69 LV 125 -3 52 69 AO 131 55 84 69 AO 101 62 80 70 LV 129 -3 62 70 LV 129 -1 42 69 LV Ventriculography Ejection Method: LV Gram Ejection Fraction: 15% Wall Motion: JOSÉ Anterobasal Severe Hypokinesis Anterolateral Severe Hypokinesis Apical: Severe Hypokinesis Inferoapical Severe Hypokinesis Inferobasal Severe Hypokinesis Coronary Dominance: Right Lesion Findings/Interventions * Left Main Coronary Artery The LMCA is angiographically free of disease. * Left Anterior Descending There is a 40% stenosis in the Proximal LAD. There is a 20% stenosis in the Mid LAD. * Circumflex There is a 30% stenosis in the Mid Circumflex. * Right Coronary Artery There is a 100% stenosis in the Distal RCA. Collateral vessels from LAD septal supplying R PDA Updated by RT Wilbert(R) on 06/28/2016 6:02:28 PM Rolan Barone MD, FACC electronically signed on 06/29/2016 8:39:58 AM with status of Final
[2016-06-29] MEDS: *HR* HYDROcodone/Acet 5/325 mg TABLET PO PRN (10:13)
--- NOTE | 2016-06-29 12:57 | Cardiology Progress Note ---
Date of Encounter: 06/29/16 Time of Encounter: 12:55 Assessment and Plan (1) Cardiomyopathy Current Visit: Yes Status: Acute TTE reveals EF severely reduced at 15-20%.New compared to previous records. Dilated cardiomyoapthy. Non-ischemic. Medical management recommended. S/p LHC showing GAS APPLIANCE INSTALLER of distal RCA with left to right collaterals. EF 15% with enlarged LV. Dilated cardiomyopathy. Continue toprol XL and add jolynn-inhibitor. Currently euvolemic. Lasix stopped d/t IVANA and kidney function improved. Restart as needed. CHF education reviewed. Close out-pt f/u. Qualifiers: Cardiomyopathy type: unspecified Qualified Code(s): I42.9 - Cardiomyopathy , unspecified (2) Chest pain Current Visit: Yes Status: Resolved S/p LHC showing GAS APPLIANCE INSTALLER of distal RCA with left to right collaterals. EF 15% with enlarged LV. Dilated cardiomyopathy. MM recommended. Add lisinopril. Kidney function returned to normal. Distal RCA lesion consistent with abnormal stress. Qualifiers: Chest pain type: other chest pain Qualified Code(s): R07.89 - Other chest pain; R07.8 - Other chest pain (3) CAD (coronary artery disease) Current Visit: Yes Status: Chronic Hx of CAD, MIs, multiple PCIs. Reports LHC 1 year ago prior to Mitral valve surgery without intervention. ASA, Statin, BB. S/p LHC showing GAS APPLIANCE INSTALLER of distal RCA with left to right collaterals. EF 15% with enlarged LV. Dilated cardiomyopathy. Qualifiers: Coronary Disease-Associated Artery/Lesion type: [place] artery [place] vs. transplanted heart: [place] heart Associated angina: angina presence unspecified Qualified Code(s): I25.10 - Atherosclerotic heart disease of [place] coronary artery without angina pectoris (4) H/O mitral valve replacement Current Visit: Yes Status: Chronic Hx of mitral valve replacement per pt at [facility] 1 year ago. Request records. Discussion w patient/family: The assessment and plan as outlined above was discussed with the patient and/or family members who expressed understanding and agreement. All questions were answered. Thank you for involving us in the care of your patient. Please call with any questions. Subjective Principal diagnosis: Chest pain Interval history: Denies recurrent chest pain. Objective Vital Signs, Last 4 Hours Temp Pulse Resp BP Pulse Ox 06/29/16 11:00 98.5 F 59 16 114/77 95 General: Conversant, No Apparent Distress HEENT: Atraumatic, Normocephaly, Mucus Membranes Moist Neck: No JVD, Normal carotid pulses Cardiac: Reg Rate and Rhythm, Normal S1 and S2, No Murmur Lungs: Normal Breath Sounds, No Wheeze, Rales, Rhonchi Neuro: Alert and responsive, No focal deficits noted Abdomen: Soft, Non-Tender Skin: No rashes noted on visualized skin Musculoskeletal: No Chest Wall Tenderness Extremities: No Clubbing, No Cyanosis, No Edema, Normal Pulses Results 06/29/16 05:25 06/29/16 03:27 Lab Results 06/29/16 06/29/16 03:27 05:25 WBC 8.3 Hgb 9.7 L Hct 30.9 L Plt Count 180 Sodium 137 Potassium 4.5 Chloride 113 H Carbon Dioxide 15 L BUN 25 H Creatinine 1.11 Glucose 107 H Calcium 8.6 - VTE Documentation of Mechanical Device: Intermittent pneumatic compression device Consult Discharge Plan - Plan Referrals: Willie Estrada MD [Primary Care Provider] - 07/07/16 1:30 pm (Please call office to set up first visit )
[2016-06-29] MEDS: 0.9 % Sodium Chloride 1,000 ML IVC SCH (13:31)
[2016-06-29 15:24] VITALS: BP 95/68
--- NOTE | 2016-06-29 17:31 | Discharge Summary ---
Date of Encounter: 06/29/16 Time of Encounter: 09:20 - Discharge Diagnosis (1) Chest pain Priority: Primary Status: Resolved Comments: Patient states that she feels better today. She has no chest pain. She does report bilateral anterior rib pain with deep inspiration. She states that chest heaviness gone. Patient states that she has a chronic habit of holding her breath while walking so naturally show short of breath when she gets to where she is going. She says this is due to her chronic back pain and she holds her breath to help with the pain. Heart catheter today shows a DIRECTOR OF TRAUMA of distal RCA with [id number] collaterals. EF 15% with enlarged LV. Dilated cardiomyopathy. Cardiology has added lisinopril to her regimen and recommends medical management. Qualifiers: Chest pain type: other chest pain Qualified Code(s): R07.89 - Other chest pain; R07.8 - Other chest pain (2) H/O mitral valve replacement Priority: Secondary Status: Chronic Comments: Chronic. Cardiology has requested records from [facility]. Valve was replaced one year ago. (3) Cardiomyopathy Priority: Secondary Status: Chronic Comments: Patient had TTE that reveals EF severely reduced at 15-20%. Also showed dilated cardiomyopathy, nonischemic. Cardiology is recommending medical management. Continue Toprol and add lisinopril. Her Lasix was stopped due to [place] eye and kidney function improved restart the Lasix at home. Cardiology reviewed CHF education with the patient. Patient is to follow-up with outpatient cardiology closely. Qualifiers: Cardiomyopathy type: unspecified Qualified Code(s): I42.9 - Cardiomyopathy , unspecified (4) Anxiety and depression Priority: Secondary Status: Chronic Comments: Chronic. Continue home medications. (5) CAD (coronary artery disease) Priority: Secondary Status: Chronic Comments: Chronic. Plan as above. Qualifiers: Coronary Disease-Associated Artery/Lesion type: [place] artery [place] vs. transplanted heart: [place] heart Associated angina: angina presence unspecified Qualified Code(s): I25.10 - Atherosclerotic heart disease of [place] coronary artery without angina pectoris (6) Skin sore Priority: Secondary Status: Chronic Comments: Patient is taking doxycycline. Will continue. Follow-up with primary care outpatient. (7) DVT prophylaxis Priority: Secondary Status: Acute Comments: Subcutaneous heparin daily. - Discharge Medications Home Medications: Aspirin/Calcium Carbonate/Mag [Aspirin Buffered 325 mg Tab] 325 mg PO DAILY 04/ 21/17 [History] ClonazePAM [Klonopin] 1 mg PO BID 06/25/16 [History] Doxycycline 100 mg PO BID 06/25/16 [History] Furosemide [Lasix] 40 mg PO DAILY 06/25/16 [History] Gabapentin [Neurontin] 300 mg PO TID 06/25/16 [History] Gemfibrozil [Lopid] 600 mg PO BID 06/25/16 [History] HYDROcodone/Acet 5/325 mg [[place] 5-325 mg] 1 tab PO BID PRN 06/25/16 [History] Levothyroxine [Synthroid] 88 mcg PO DAILY 06/25/16 [History] Metoprolol [Lopressor] 25 mg PO BID 06/25/16 [History] Pantoprazole Sodium [Protonix] 40 mg PO DAILY 06/25/16 [History] Pravastatin Sodium [Pravachol] 80 mg PO DAILY 06/25/16 [History] Sertraline [Zoloft] 200 mg PO DAILY 06/25/16 [History] Sulfamethoxazole/Trimeth DS [Bactrim Ds] 1 tab PO BID 06/25/16 [History] Lisinopril [Zestril] 2.5 mg PO DAILY tablet 06/29/16 [Rx] Nystatin POWDER [Nystop] 1 appl TP BID bottle 06/29/16 [Rx] Allergies/Adverse Reactions: Allergies No Known Allergies Allergy (Verified 06/25/16 06:39) Procedures/tests Complete & Pending: Procedures Performed prior 72 hours Category Date Time Status Left Heart Cath [CL Cardiac Catheterization] [CL] Database Technician 06/28/16 12:00 Completed Routine Date of admission: 06/27/16 14:40 Primary care physician: Willie Estrada MD Discharging clinician: Brynn Stiles Anticipated date of discharge: 06/29/16 - Patient Status Disposition: Home, Self-Care Condition: Fair Functional capacity at discharge: independent ambulation Overall status at discharge: patient is progressing back to baseline - Discharge Instructions Follow Up With: Willie Estrada MD [Primary Care Provider] - 07/07/16 1:30 pm (Please call office to set up first visit ) Additional Instructions: Continue your home medications Follow up with cardiology as scheduled. Return to the ER if you have any other problems or concerns, or if your chest pain returns or your condition worsens or changes. - Diet and Activity Activity: increase activity as tolerated, resume usual activities as tolerated Diet: low fat, low cholesterol, low salt diet Hospital course: Ms. Buckner is a 60 year old female with lengthy cardiac history, coronary artery disease, CHF, mitral valve replacement, chronic kidney disease, acute kidney insufficiency. Patient was admitted on June 25 through the emergency department with chest pain that began that morning. She woke up with the pressure on her chest. History of same about 3 years ago, requiring catheter and stent. Patient states that she took Tylenol and hydrocodone and symptoms resolved completely. Patient had TTE that she has severely reduced EF 15-20%, dilated cardiomyopathy, nonischemic. Cardiology is recommending medical management. She had a left heart catheterization showing DIRECTOR OF TRAUMA of distal RCA with [id number]-[id number] collaterals. EF is 15% with enlarged LV and dilated cardiomyopathy, as well. Patient will continue her Toprol and add Zestril. She will restart her Lasix when she has at home, renal function has improved. Cardiology reviewed the CHF education with her. She will follow-up with cardiology outpatient. Patient reports to me today that she feels better. Her only complaint is that her back hurts. She says that she has chronic back pain and that this hospital but is not helping. She also reports bilateral rib pain anteriorly with inspiration. She says that her chest heaviness is gone. She has no edema, lung sounds are clear to auscultation anteriorly and posteriorly, her abdomen is soft, nontender, without hepatomegaly, with hyperactive bowel sounds. Patient reports shortness of breath with exertion, however she does admit that she holds her breath while walking due to chronic back pain. She reports that she is always short of breath while walking, when she gets to her destination, due to holding her breath. Patient has been cleared by cardiology and will follow-up with them outpatient. She is pain-free. Her vital signs are stable. She has a ride home. She is stable for discharge. - Time Spent with Patient Total time spent providing and/or coordinating discharge services: - Constitutional Vitals: Temp Pulse Resp BP Pulse Ox 98.0 F 106 17 95/68 96 06/29/16 15:23 06/29/16 15:23 06/29/16 15:23 06/29/16 15:23 06/29/16 15:23 General appearance: Present: cooperative, A&O X 3, pleasant, no acute distress, obese, answers questions appropriately - Head Head exam: Present: normal inspection - Eye Eye exam: Present: normal appearance, PERRL - ENT ENT exam: Present: mucous membranes moist, normal exam - Neck Neck exam general surgery: Present: normal inspection. Absent: lymphadenopathy , tenderness - Respiratory Respiratory exam: Present: CTAB. Absent: rales, respiratory distress, rhonchi, stridor, wheezes, tachypnea - Cardiovascular Cardiovascular exam: Present: RRR, +S1, +S2. Absent: diastolic murmur, systolic murmur - GI/Abdominal GI/Abdominal exam: Present: normal bowel sounds, soft. Absent: hepatomegaly, splenomegaly, tenderness - Extremities Exam Extremities exam: Present: normal inspection, warm, radial pulses palpable and symetrical. Absent: pedal edema, tenderness - Neurological Exam Neurological exam: Present: alert, oriented X3, no focal deficits, strengths equal and symetr throughout. Absent: facial droop, speech deficit - VTE Documentation of Mechanical Device: Intermittent pneumatic compression device
== END 2016-06-29 20:07 | disposition home or self-care (01) | DRG 191 ==
LOC: 3BNU 06:37 → EMEROO 06:37 → 3BNU 09:30
PROVIDERS: ADMIT Hospitalist; ATTEND Nurse Practitioner Family

== ENCOUNTER 2017-02-24 15:00 | Observation (INO) ==
[2017-02-24] MEDS ORDERED: Levofloxacin 750 MG/150 ML 750 MG/150 ML BAG IVPB ONE (15:08)
[2017-02-24] MEDS ORDERED: 0.9 % Sodium Chloride 1,000 ML IVC ONE (15:08)
[2017-02-24] MEDS ORDERED: methylPREDNISolone 125 MG/2 ML VIAL IVP ONE (15:12)
[2017-02-24] MEDS ORDERED: Ipratropium/Albuterol Neb 3 ML IH ONE (15:12)
[2017-02-24] MEDS ORDERED: Aspirin 81 MG TAB.CHEW PO ONE (15:13)
[2017-02-24 15:21] LABS: Basophils % 0.4 %; Eosinophils # 0.3 K/mcL (0.0-0.6); Hemoglobin 12.4 g/dL (11.5-15.4); Immature Granulocytes % 0.6 % (0-4); Mean Corpuscular Volume 91.9 fL (83.0-100.0); Monocytes # 0.5 K/mcL (0.0-1.3); Red Cell Distribution Width 18.2 % (11.5-14.5)
--- NOTE | 2017-02-24 15:21 | Emergency Department Note ---
Disposition Clinical Impression: Acute exacerbation of chronic obstructive airways disease, NSTEMI (non-ST elevated myocardial infarction) Community acquired pneumonia Qualifiers: Laterality: right Lung location: lower lobe of lung Qualified Code(s): J18.1 - Lobar pneumonia, unspecified organism Disposition: Admitted As Inpatient Condition: Fair Time of Disposition: 18:00 SOB HPI - General Chief Complaint: ED Shortness of Breath/Dyspnea Stated Complaint: Shortness of Breath Time Seen by Provider: 02/24/17 15:03 Source: EMS Limitations: no limitations Nursing Notes Reviewed: Yes Vital Signs Reviewed: Yes - History of Present Illness 61-year-old female complains of difficulty in breathing with chest tightness 1 week. Patient was seen at [place] [facility] and was diagnosed with a pneumonia and discharged home on antibiotics. Patient has not been able to fill her antibiotic secondary to insurance reasons and is here today because of difficulty in breathing. Patient states she has a history of COPD, SC, stent placements 2. Mitral valve replacement. Patient states she has not had an admit since the hospital and a year. Patient on home O2 but has not increased her home O2 usage. Patient on anticoagulants but is unable to tell us what she is on. Patient rates her chest tightness is 9 out of 10. Patient also complains of neck muscle spasm on the right side musculature she rates it 8 out of 10. - Related Data Home Medications Medication Instructions Recorded Confirmed Furosemide [Lasix] 40 mg PO DAILY 06/25/16 02/24/17 Gemfibrozil [Lopid] 600 mg PO BID 06/25/16 02/24/17 Levothyroxine [Synthroid] 88 mcg PO DAILY 06/25/16 02/24/17 Metoprolol [Lopressor] 25 mg PO BID 06/25/16 02/24/17 Pantoprazole Sodium [Protonix] 40 mg PO DAILY 06/25/16 02/24/17 Pravastatin Sodium [Pravachol] 80 mg PO DAILY 06/25/16 02/24/17 Sertraline [Zoloft] 200 mg PO DAILY 06/25/16 02/24/17 clonazePAM [Klonopin] 1 mg PO BID 06/25/16 02/24/17 Albuterol Neb [Proventil Neb] 2.5 mg IH Q6H PRN 02/24/17 02/24/17 Albuterol Sulfate [Ventolin Hfa] 2 puff IH Q4H PRN 02/24/17 02/24/17 Aspirin Enteric Coated [Aspirin EC] 325 mg PO DAILY 02/24/17 02/24/17 Clopidogrel [Plavix] 75 mg PO DAILY 02/24/17 02/24/17 Previous Rx's Medication Instructions Recorded Lisinopril [Zestril] 2.5 mg PO DAILY tablet 06/29/16 Allergies Allergy/AdvReac Type Severity Reaction Status Date / Time No Known Allergies Allergy Verified 06/25/16 06:39 Past Medical History - Past Medical History Medical history: Reports: CHF, COPD, coronary artery disease, DVT, hyperlipidemia, myocardial infarction, seizures, valvular heart disease, other Surgical history: Reports: angioplasty/stent (Patient reports placement of 4 stents following for MIs.), heart valve replacement, pacemaker Psychiatric history: Reports: anxiety, depression - Social History Smoking Status: Former smoker Smokeless Tobacco Status: No Alcohol use: Reports: none Drug use: Reports: none Physical Exam - General Limitations: no limitations General appearance: alert, in no apparent distress Course - Consultations Consultation #1: Lab: Critical high troponin 0.07 Time: 15:39 Vital Signs Temperature 98.7 F 02/24/17 15:01 Pulse Rate 106 02/24/17 15:01 Respiratory Rate 20 02/24/17 15:01 Blood Pressure 134/94 02/24/17 15:01 O2 Sat by Pulse Oximetry 100 02/24/17 15:01 Temperature 97.9 F 02/24/17 19:14 Pulse Rate 110 02/24/17 19:14 Respiratory Rate 18 02/24/17 21:21 Blood Pressure 137/95 02/24/17 19:14 O2 Sat by Pulse Oximetry 98 02/24/17 21:48 Oxygen Delivery Oxygen Delivery Nasal Cannula Shortness of Breath/Dyspnea - [facility] Narrative Medical decision making narrative: Patient presents COPD exacerbation secondary to pneumonia that is been untreated outpatient. Patient also has chest pressure/tightness and 9/10 for possible ACS/SC. Patient is new bundle-branch block on EKG when compared to previous EKG taken back in June. Patient started on aspirin, and sublingual nitroglycerin for her chest pain. DuoNeb therapy has been ordered. Lab called a critical high troponin is 0.07 which is new elevation for patient. Patient has an STEMI. Contacted cardiology for recommendations. Chest x-ray shows cardiomegaly with pulmonary vascular congestion. [address] Marinelli of cardiology. She agrees patient should be heparinized. She states that on review of old records patient has rate dependent left bundle which she states is reassuring. Admitted to medicine and they will see patient on the floor. Patient admitted for COPD exacerbation and possible pneumonia, and NSTEMI elevated troponin of 0.07. Patient's been treated with DuoNeb 3, methylprednisolone 125 mg IV, nitroglycerin 1 so far. Patient's pain is down from 10/10-5/10. Patient will be given a second sublingual nitroglycerin. Heparin orders initiated. Patient will have albuterol inhaler treatment 4 puffs with spacer. Patient feeling better and doing well and accepts this is for admission. Patient's chest discomfort is 0/10 after third round of nitroglycerin. Dr. Dueñas the hospitalist accepted patient for admission - Lab Data Lab results reviewed: Yes I reviewed the patient's lab results. Lab results narrative: Short CBC 02/24/17 Range/Units 15:10 WBC 8.0 (4.3-11.1) K/mcL Hgb 12.4 (11.5-15.4) g/dL Hct 40.6 (35.3-44.9) % Plt Count 242 (140-400) K/mcL Neutrophils # 5.1 (1.6-8.9) K/mcL BMP 02/24/17 Range/Units 15:10 Sodium 139 (136-145) mEq/L Potassium 4.3 (3.5-5.1) mEq/L Chloride 112 H (98-107) mEq/L Carbon Dioxide 19 L (23-29) mEq/L BUN 27 H (8-23) mg/dL Creatinine 1.35 H (0.60-1.20) mg/dL Glucose 103 (70-105) mg/dL Calcium 9.0 (8.6-10.3) mg/dL Cardiac Enzymes 02/24/17 Range/Units 15:10 Troponin I 0.07 H* (< 0.04) ng/mL Liver Function 02/24/17 Range/Units 15:10 Total Bilirubin 0.5 (0.3-1.0) mg/dL Direct Bilirubin 0.2 (0.0-0.2) mg/dL AST 33 (13-39) Units/L ALT 38 (7-52) Units/L Alkaline Phosphatase 138 H (34-104) Units/L Albumin 4.1 (3.5-5.7) g/dL Result diagrams: 02/24/17 15:10 02/24/17 15:10 Lab Results 02/24/17 02/24/17 02/24/17 Range/Units 15:10 15:10 15:10 WBC 8.0 (4.3-11.1) K/mcL RBC 4.42 (3.82-4.97) M/mcL Hgb 12.4 (11.5-15.4) g/dL Hct 40.6 (35.3-44.9) % MCV 91.9 (83.0-100.0) fL MCH 28.1 (28.0-33.3) pg MCHC 30.5 L (31.6-35.5) g/dL RDW 18.2 H (11.5-14.5) % Plt Count 242 (140-400) K/mcL MPV 12.1 (9.4-12.4) fL Immature Gran % 0.6 (0-4) % Seg Neutrophils % 63.9 % Lymphocytes % 25.2 % Monocytes % 5.7 % Eosinophils % 4.2 % Basophils % 0.4 % Neutrophils # 5.1 (1.6-8.9) K/mcL Lymphocytes # 2.0 (0.6-4.6) K/mcL Monocytes # 0.5 (0.0-1.3) K/mcL Eosinophils # 0.3 (0.0-0.6) K/mcL Basophils # 0.0 (0.0-0.2) K/mcL Immature Plt Fraction 10.3 H (1.1-6.1) % PT 12.4 H (9.4-12.1) Seconds INR 1.1 APTT 31.1 (26.0-36.0) Seconds Sodium 139 (136-145) mEq/L Potassium 4.3 (3.5-5.1) mEq/L Chloride 112 H (98-107) mEq/L Carbon Dioxide 19 L (23-29) mEq/L BUN 27 H (8-23) mg/dL Creatinine 1.35 H (0.60-1.20) mg/dL Est GFR ( Amer) 48 L (> 60) Est GFR (Non-Af Amer) 40 L (> 60) BUN/Creatinine Ratio 20 (6-26) Glucose 103 (70-105) mg/dL Calculated Osmolality 293 (280-300) Lactic Acid (0.5-2.2) mmol/L Calcium 9.0 (8.6-10.3) mg/dL Phosphorus 2.8 (2.7-4.5) mg/dL Magnesium 2.1 (1.6-2.6) mg/dL Total Bilirubin 0.5 (0.3-1.0) mg/dL Direct Bilirubin 0.2 (0.0-0.2) mg/dL Indirect Bilirubin 0.3 (0.0-1.2) mg/dL AST 33 (13-39) Units/L ALT 38 (7-52) Units/L Alkaline Phosphatase 138 H (34-104) Units/L Troponin I (< 0.04) ng/mL B-Natriuretic Peptide (Less than 100) pg/mL Serum Total Protein 7.0 (6.4-8.9) g/dL Albumin 4.1 (3.5-5.7) g/dL Globulin 2.9 (2.4-3.5) g/dL Albumin/Globulin Ratio 1.4 (1.1-2.2) Urine Color (Yellow) Urine Clarity (Clear) Urine pH (5.0-8.0) pH Units Ur Specific [place] (1.010-1.025) Urine Protein (Neg-Trace) mg/dL Urine Glucose (UA) (Normal) mg/dL Urine Ketones (Negative) mg/dL Urine Blood (Negative) Urine Nitrite (Negative) Urine Bilirubin (Negative) Urine Urobilinogen (Normal) mg/dL Ur Leukocyte Esterase (Negative) Urine Microscopic RBC (0-3) per hpf Urine Microscopic WBC (0-3) per hpf Ur Squamous Epith Cells (None-Few) per lpf Urine Bacteria (None-Few) per hpf Hyaline Casts (None-Few) per lpf Ur Culture Indicated? (NO) 02/24/17 02/24/17 02/24/17 Range/Units 15:10 15:10 15:17 WBC (4.3-11.1) K/mcL RBC (3.82-4.97) M/mcL Hgb (11.5-15.4) g/dL Hct (35.3-44.9) % MCV (83.0-100.0) fL MCH (28.0-33.3) pg MCHC (31.6-35.5) g/dL RDW (11.5-14.5) % Plt Count (140-400) K/mcL MPV (9.4-12.4) fL Immature Gran % (0-4) % Seg Neutrophils % % Lymphocytes % % Monocytes % % Eosinophils % % Basophils % % Neutrophils # (1.6-8.9) K/mcL Lymphocytes # (0.6-4.6) K/mcL Monocytes # (0.0-1.3) K/mcL Eosinophils # (0.0-0.6) K/mcL Basophils # (0.0-0.2) K/mcL Immature Plt Fraction (1.1-6.1) % PT (9.4-12.1) Seconds INR APTT (26.0-36.0) Seconds Sodium (136-145) mEq/L Potassium (3.5-5.1) mEq/L Chloride (98-107) mEq/L Carbon Dioxide (23-29) mEq/L BUN (8-23) mg/dL Creatinine (0.60-1.20) mg/dL Est GFR ( Amer) (> 60) Est GFR (Non-Af Amer) (> 60) BUN/Creatinine Ratio (6-26) Glucose (70-105) mg/dL Calculated Osmolality (280-300) Lactic Acid 1.8 (0.5-2.2) mmol/L Calcium (8.6-10.3) mg/dL Phosphorus (2.7-4.5) mg/dL Magnesium (1.6-2.6) mg/dL Total Bilirubin (0.3-1.0) mg/dL Direct Bilirubin (0.0-0.2) mg/dL Indirect Bilirubin (0.0-1.2) mg/dL AST (13-39) Units/L ALT (7-52) Units/L Alkaline Phosphatase (34-104) Units/L Troponin I 0.07 H* (< 0.04) ng/mL B-Natriuretic Peptide 1239 H (Less than 100) pg/mL Serum Total Protein (6.4-8.9) g/dL Albumin (3.5-5.7) g/dL Globulin (2.4-3.5) g/dL Albumin/Globulin Ratio (1.1-2.2) Urine Color (Yellow) Urine Clarity (Clear) Urine pH (5.0-8.0) pH Units Ur Specific [place] (1.010-1.025) Urine Protein (Neg-Trace) mg/dL Urine Glucose (UA) (Normal) mg/dL Urine Ketones (Negative) mg/dL Urine Blood (Negative) Urine Nitrite (Negative) Urine Bilirubin (Negative) Urine Urobilinogen (Normal) mg/dL Ur Leukocyte Esterase (Negative) Urine Microscopic RBC (0-3) per hpf Urine Microscopic WBC (0-3) per hpf Ur Squamous Epith Cells (None-Few) per lpf Urine Bacteria (None-Few) per hpf Hyaline Casts (None-Few) per lpf Ur Culture Indicated? (NO) 02/24/17 Range/Units 16:59 WBC (4.3-11.1) K/mcL RBC (3.82-4.97) M/mcL Hgb (11.5-15.4) g/dL Hct (35.3-44.9) % MCV (83.0-100.0) fL MCH (28.0-33.3) pg MCHC (31.6-35.5) g/dL RDW (11.5-14.5) % Plt Count (140-400) K/mcL MPV (9.4-12.4) fL Immature Gran % (0-4) % Seg Neutrophils % % Lymphocytes % % Monocytes % % Eosinophils % % Basophils % % Neutrophils # (1.6-8.9) K/mcL Lymphocytes # (0.6-4.6) K/mcL Monocytes # (0.0-1.3) K/mcL Eosinophils # (0.0-0.6) K/mcL Basophils # (0.0-0.2) K/mcL Immature Plt Fraction (1.1-6.1) % PT (9.4-12.1) Seconds INR APTT (26.0-36.0) Seconds Sodium (136-145) mEq/L Potassium (3.5-5.1) mEq/L Chloride (98-107) mEq/L Carbon Dioxide (23-29) mEq/L BUN (8-23) mg/dL Creatinine (0.60-1.20) mg/dL Est GFR ( Amer) (> 60) Est GFR (Non-Af Amer) (> 60) BUN/Creatinine Ratio (6-26) Glucose (70-105) mg/dL Calculated Osmolality (280-300) Lactic Acid (0.5-2.2) mmol/L Calcium (8.6-10.3) mg/dL Phosphorus (2.7-4.5) mg/dL Magnesium (1.6-2.6) mg/dL Total Bilirubin (0.3-1.0) mg/dL Direct Bilirubin (0.0-0.2) mg/dL Indirect Bilirubin (0.0-1.2) mg/dL AST (13-39) Units/L ALT (7-52) Units/L Alkaline Phosphatase (34-104) Units/L Troponin I (< 0.04) ng/mL B-Natriuretic Peptide (Less than 100) pg/mL Serum Total Protein (6.4-8.9) g/dL Albumin (3.5-5.7) g/dL Globulin (2.4-3.5) g/dL Albumin/Globulin Ratio (1.1-2.2) Urine Color Yellow (Yellow) Urine Clarity Clear (Clear) Urine pH 6.0 (5.0-8.0) pH Units Ur Specific [place] 1.020 (1.010-1.025) Urine Protein 30 H (Neg-Trace) mg/dL Urine Glucose (UA) Normal (Normal) mg/dL Urine Ketones Negative (Negative) mg/dL Urine Blood Negative (Negative) Urine Nitrite Positive A (Negative) Urine Bilirubin Negative (Negative) Urine Urobilinogen Normal (Normal) mg/dL Ur Leukocyte Esterase Trace H (Negative) Urine Microscopic RBC 0-3 (0-3) per hpf Urine Microscopic WBC 5-15 H (0-3) per hpf Ur Squamous Epith Cells Many H (None-Few) per lpf Urine Bacteria Many H (None-Few) per hpf Hyaline Casts None Seen (None-Few) per lpf Ur Culture Indicated? NO (NO) - Radiology Data Radiology results reviewed: Yes I reviewed the patient's radiology results. Chest X-Ray 12/21/17 15:08 IMPRESSION: 1. Cardiomegaly with new mild pulmonary vascular congestion. D/ / Steve Duran MD / Steve Duran MD Interpreting Provider: Steve Duran MD - EKG Data EKG attestation: Yes I reviewed and interpreted this EKG. EKG results narrative: EKG taken at 02/24/2017 at 1502 hrs. shows sinus tachycardia at a rate of 110 bpm. EKG shows new left bundle-branch block when compared to previous EKG taken 06/25/2016
[2017-02-24 15:31] LABS: INR 1.1; Prothrombin Time 12.4 Seconds (9.4-12.1)
[2017-02-24 15:34] LABS: Activated Partial Thrombo Time 31.1 Seconds (26.0-36.0)
[2017-02-24 15:38] LABS: Eosinophils % 4.2 %; Hematocrit 40.6 % (35.3-44.9); Immature Platelets 10.3 % (1.1-6.1); Lymphocytes % 25.2 %; Mean Corpuscular HGB Conc 30.5 g/dL (31.6-35.5); Mean Corpuscular Hemoglobin 28.1 pg (28.0-33.3); Mean Platelet Volume 12.1 fL (9.4-12.4); Monocytes % 5.7 %; Neutrophils # 5.1 K/mcL (1.6-8.9); Platelet Count 242 K/mcL (140-400); Red Blood Count 4.42 M/mcL (3.82-4.97); Segmented Neutrophils % 63.9 %
[2017-02-24 15:48] LABS: Albumin 4.1 g/dL (3.5-5.7); Albumin/Globulin Ratio 1.4 (1.1-2.2); Bilirubin,Direct 0.2 mg/dL (0.0-0.2); Bilirubin,Indirect 0.3 mg/dL (0.0-1.2); Bilirubin,Total 0.5 mg/dL (0.3-1.0); Globulin 2.9 g/dL (2.4-3.5); Magnesium 2.1 mg/dL (1.6-2.6); Phosphorous 2.8 mg/dL (2.7-4.5); Potassium 4.3 mEq/L (3.5-5.1)
--- NOTE | 2017-02-24 15:48 | Emergency Department Note ---
START Narrative - START START: I examined this patient and my medical decision-making was reviewed with the Resident Physician. I agree with the documented findings, disposition and treatment plan as described except to the extent set forth below. 61 year old female with HX of COPD and recent history of pneumonia but inability to obtain her antibitiocs has been experencing an excerabation of her COPD thus requiring increased oxygen supplementation from her baseline of 2LNCcontinous and yoly heavinuss with pressure. PAtient also has an elevated heart rate which is concerning for sepsis criteria in addition to an elevated troponing which coud be due to demand ischemia. Her EKG shows a new LBBB and we will consult with cardiology about the needs for heparin drip at this time although this is most likely demand ischmia. We will treat her with aspirin at this time. She will admitted to medicine
[2017-02-24] MEDS ORDERED: Furosemide 40 MG/4 ML VIAL IVP ONE (15:56)
[2017-02-24] MEDS: Nitroglycerin 0.4 MG TAB.SUBL SL PRN ×3 (16:07→17:19)
[2017-02-24] MEDS ORDERED: *HR* Heparin 5,000 UNIT/ML VIAL IVP ONE (16:30)
[2017-02-24] MEDS ORDERED: *HR* Heparin 5,000 UNIT/ML VIAL IVP PRN ×2 (16:30)
[2017-02-24] MEDS: Heparin 25,000 UNIT/500 ML D5W 25,000 UNIT/500 ML BAG IVC SCH (16:58)
[2017-02-24 17:17] LABS: Bilirubin,Urine Negative (Negative); Blood,Urine Negative (Negative); Clarity,Urine Clear (Clear); Color,Urine Yellow (Yellow); Glucose,Urine (UA) Normal (Normal); Ketones,Urine Negative (Negative); Leukocyte Esterase,Urine Trace (Negative); Nitrite,Urine Positive (Negative); Protein,Urine 30 mg/dL (Neg-Trace); Urobilinogen,Urine Normal (Normal)
[2017-02-24 17:22] LABS: Bacteria,Urine Many per hpf (None-Few); Hyaline Casts,Urine None Seen per lpf (None-Few); RBC,Urine 0-3 per hpf (0-3); Squamous Epithelial Cell,Urine Many per lpf (None-Few)
[2017-02-24] MEDS ORDERED: *HR* HYDROcodone/Acet 5/325 mg TABLET PO PRN (20:53)
[2017-02-24] MEDS ORDERED: Acetaminophen 325 MG TABLET PO PRN (20:53)
[2017-02-24] MEDS ORDERED: Naloxone 0.4 MG/ML INJ IVP PRN (20:53)
[2017-02-24] MEDS ORDERED: Nitroglycerin 0.4 MG TAB.SUBL SL PRN (21:00)
--- NOTE | 2017-02-24 21:07 | Internal Med History&Physical ---
Date of Encounter: 02/25/17 Time of Encounter: 21:07 Assessment and Plan (1) Chest pain Current visit: Yes Status: Acute Patient has been experiencing Chest pressure relieved with rest. She does have a cardiac history with hospitalization earlier this year In June with TTE EF severely reduced at 15-20%. Dilated cardiomyoapthy. Non-ischemic. 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 EF 15% with enlarged LV. Dilated cardiomyopathy cardiology recommended medical management. Her first troponin was elevated at 0.07 and was concerned of possible due to left bundle branch block however ER spoke with She states that on review of old records patient has rate dependent left bundle which she states is reassuring. We will continue to trend troponins initiated on heparin per cardiology recommendations will which we will continue Continuous cardiac monitoring Cardiology has been consulted Continue with aspirin and statin and beta hailee Nitrates as needed for chest pain Nothing by mouth after midnight for any possible catheterization in a.m. Qualifiers: Chest pain type: unspecified Qualified Code(s): R07.9 - Chest pain, unspecified (2) Community acquired pneumonia Current visit: Yes Status: Acute Patient was diagnosed with pneumonia approximately a week ago patient did not complete antibiotic therapy due to unable to afford antibiotics. Patient was initiated on Levaquin in the ER however we will place on Rocephin at this time due to prolonged QTC of 474 Continue with bronchodilators Oxygen as needed maintain SPO2 greater than 92% Qualifiers: Laterality: right Lung location: lower lobe of lung Qualified Code(s): J18.1 - Lobar pneumonia, unspecified organism (3) Chronic kidney disease Current visit: No Status: Acute Qualifiers: Chronic kidney disease stage: stage 4 (severe) Qualified Code(s): N18.4 - Chronic kidney disease, stage 4 (severe) (4) CHF (congestive heart failure) Current visit: Yes Status: Acute 1 patient has EF 15-20% has been experiencing SOB CP CXR show some vascular congestion. 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 Buckner is a 61 year old female past medical history of coronary artery disease CHF mitral valve replacement ( [facility] 2015 )chronic kidney disease CAD PA with stents COPD oxygen dependent (2 L nasal cannula) DVT. Patient has a lengthy cardiac history she was admitted in June of this year to this facility for chest pain she went underwent a left heart catheterization showing CT of distal RCA with [id number] collaterals. Patient had a TTE that revealed severely reduced EF of 15 and 20% dilated cardiomyopathy nonischemic cardiology recommended medical management. Patient does follow with pharmacy helper in [facility] . According to the patient she was seen at an outlying facility in [facility] approximately a week ago for increasing shortness of breath she was diagnosed with pneumonia and was discharged home on antibiotics. Patient was not able to fill her antibiotic prescription secondary to insurance reason. Throughout the week the patient continued to experience increasing shortness of breath as well as midsternal chest tightness on exertion which was nonradiating and would relieve with rest. She denies any fevers chills or increased sputum production or change in sputum. She presented to the ER with the above complaints chest pressure she rated 10 out of 10. Lab work was obtained which did reveal a critically high troponin at 0.07. There are also concerns of a new left bundle branch block. ER physician did consult and speak with Dr. Muro of cardiology. And according to records " she states that on review of old records patient has rate dependent left bundle which she states is reassuring" advice for heparinization and admitting to medicine and would see patient in consult. Patient was given doing Solu-Medrol nitroglycerin and was admitted for further workup and evaluation. Presently the patient complains of right shoulder pain which radiates to her neck, denies any chest pressure at this time or shortness of breath she has hemodynamic stable. I did review this case with Dr. Wren who agrees with plan. Past Med Surg Social Fam HX - Past Medical History Medical history: CHF, COPD, coronary artery disease, DVT, hyperlipidemia, myocardial infarction, seizures, valvular heart disease, other Psychiatric history: anxiety, depression - Past Surgical History Surgical History: angioplasty/stent, heart valve replacement, pacemaker - Social History Smoking Status: Former smoker Smokeless Tobacco Status: No Alcohol use: none Drug use: none - Family History Father Living Status: Cause of : heart attack Hx Family Cardiac Disorders: Yes ([place]) Hx Family Psychosocial Disorders: Yes Brother Living Status: Still Living Hx Family Cardiac Disorders: Yes ([place]) Internal Medicine - H&P: Meds Furosemide [Lasix] 40 mg PO DAILY 06/25/16 [History] Gemfibrozil [Lopid] 600 mg PO BID 06/25/16 [History] Levothyroxine [Synthroid] 88 mcg PO DAILY 06/25/16 [History] Metoprolol [Lopressor] 25 mg PO BID 06/25/16 [History] Pantoprazole Sodium [Protonix] 40 mg PO DAILY 06/25/16 [History] Pravastatin Sodium [Pravachol] 80 mg PO DAILY 06/25/16 [History] Sertraline [Zoloft] 200 mg PO DAILY 06/25/16 [History] clonazePAM [Klonopin] 1 mg PO BID 06/25/16 [History] Lisinopril [Zestril] 2.5 mg PO DAILY tablet 06/29/16 [Rx] Albuterol Neb [Proventil Neb] 2.5 mg IH Q6H PRN 02/24/17 [History] Albuterol Sulfate [Ventolin Hfa] 2 puff IH Q4H PRN 02/24/17 [History] Aspirin Enteric Coated [Aspirin EC] 325 mg PO DAILY 02/24/17 [History] Clopidogrel [Plavix] 75 mg PO DAILY 02/24/17 [History] 3 Allergy/AdvReac Type Severity Reaction Status Date / Time No Known Allergies Allergy Verified 06/25/16 06:39 All Systems PM: A 10-system review of systems was performed and is negative for pertinent findings except as documented above in the HPI. - Constitutional Constitutional: no chills, no fever(s), no night sweats - EENT Eyes: no change in vision, no discharge, no pain, no photophobia Nose, mouth and throat: no dysphagia, no nasal discharge, no neck pain, no sore throat - Cardiovascular Cardiovascular ROS IM: chest pain, dyspnea - Respiratory Respiratory: dyspnea on exertion, no cough, no dyspnea, no wheezing, no excessive phlegm production - Gastrointestinal Gastrointestinal: no abdominal pain, no diarrhea, no hematemesis, no hematochezia, no melena, no nausea, no vomiting - Genitourinary Genitourinary: no change in urinary stream, no dysuria, no flank pain, no hematuria - Musculoskeletal Musculoskeletal ROS IM: no numbness, no tingling - Integumentary Integumentary IM: no rash, no unusual bruising - Neurological Neurological ROS: no confusion, no convulsions, no focal weakness, no numbness, no tingling, no tremor(s) - Hematologic/Lymphatic Hematologic/Lymphatic: no easy bruising - Constitutional Vitals: Temp Pulse Resp BP Pulse Ox 97.9 F 110 18 137/95 96 02/24/17 19:14 02/24/17 19:14 02/24/17 19:14 02/24/17 19:14 02/24/17 19:14 General appearance: Present: A&O X 3 - Head Head exam: Present: atraumatic, normocephalic - Eye Eye exam: Present: PERRL, conjuntiva pink, sclera anicteric Pupils: Present: PERRL - Neck Neck exam general surgery: Present: supple, trachea midline. Absent: lymphadenopathy - Respiratory Respiratory exam: Present: rales. Absent: accessory muscle use, wheezes - Cardiovascular Cardiovascular exam: Present: RRR, +S1, +S2. Absent: diastolic murmur, gallop, rubs, systolic murmur - GI/Abdominal GI/Abdominal exam: Present: normal bowel sounds, soft, no peritoneal signs. Absent: distended, tenderness - Extremities Exam Extremities exam: Present: warm, radial pulses palpable and symmetrical. Absent : calf tenderness, cyanotic, pedal edema - Neurological Exam Neurological exam: Present: CN II-XII intact, oriented X3, no focal deficits. Absent: pronater drift, facial droop, speech deficit Internal Med - H&P Results - Labs CBC & Chem 7: 02/25/17 03:26 02/25/17 03:26 - EKG Data EKG shows normal: sinus rhythm Rate: tachycardia - EKG Data Prior EKG available for review: yes When compared to previous EKG: there are significant changes EKG comments: 02/24/17 22:31 Sinus tachycardia with first-degree AV block left bundle branch block. Review EKG with Dr. Wren - Diagnostic Studies Other Images Additional comments: Chest X-Ray 02/24/17 15:08 IMPRESSION: 1. Cardiomegaly with new mild pulmonary vascular congestion. D/ / Steve Duran MD / Steve Duran MD Interpreting Provider: Steve Duran MD
[2017-02-24] MEDS: Levalbuterol Neb 1.25 MG/3 ML IH SCH (21:19)
[2017-02-24 23:37] LABS: Activated Partial Thrombo Time 213.1 Seconds (26.0-36.0)
[2017-02-24 23:54] LABS: Heparin anti-factor XA UFH 1.32 IU/mL (0.30-0.70)
--- NOTE | 2017-02-25 00:02 | Event Note ---
Date of Encounter: 02/25/17 Time of Encounter: 22:30 I examined this patient and my medical decision-making was reviewed with the nurse practitioner. I agree with the documented findings, disposition and treatment plan as described except to the extent set forth below. 61 year old female with CAD/AL, HFrEF (last EF 15%), MVR, CKD, O2 dependent COPD , and a documented history of DVT presented for chest pain, shortness of breath , fatigue. Patient recently diagnosed with pneumonia but could not afford medication. Upon presentation to ED troponin was 0.07 and creatinine is at baseline of 1.3. she had new LBBB not seen on EKG in 06/2016 though some newer EKG may have showed a LBBB. She was started on heparin drip, Nitro prn, and cardiology consulted. Repeat troponin are pending. She has history of DVT on computer but patient states she is unaware of this. A V/Q scan is scheduled. She is started on Rocephin for pneumonia. May needd Doxycycline to cover atypical pneumonia. She has borderline elevated QTc so Azithromycin and Levaquin is not currently being used.
[2017-02-25] MEDS: *HR* OxyCODONE/APAP 5/325 TABLET PO PRN ×2 (03:02→09:59)
[2017-02-25] MEDS: Levalbuterol Neb 1.25 MG/3 ML IH SCH ×4 (04:17→21:40)
[2017-02-25 04:30] LABS: Basophils % 0.2 %; Hematocrit 36.3 % (35.3-44.9); Hemoglobin 11.1 g/dL (11.5-15.4); Immature Granulocytes % 0.9 % (0-4); Lymphocytes # 0.6 K/mcL (0.6-4.6); Lymphocytes % 11.2 %; Mean Corpuscular HGB Conc 30.6 g/dL (31.6-35.5); Mean Corpuscular Hemoglobin 27.8 pg (28.0-33.3); Mean Corpuscular Volume 90.8 fL (83.0-100.0); Mean Platelet Volume 12.5 fL (9.4-12.4); Monocytes # 0.1 K/mcL (0.0-1.3); Monocytes % 1.3 %; Neutrophils # 4.8 K/mcL (1.6-8.9); Platelet Count 188 K/mcL (140-400); Red Cell Distribution Width 17.7 % (11.5-14.5); Segmented Neutrophils % 86.4 %
[2017-02-25 04:44] LABS: Calcium 8.7 mg/dL (8.6-10.3); Magnesium 1.8 mg/dL (1.6-2.6); Potassium 4.4 mEq/L (3.5-5.1)
[2017-02-25] MEDS ORDERED: Furosemide 40 MG/4 ML VIAL IVP SCH (09:00)
[2017-02-25] MEDS: cefTRIAXone 1,000 MG in Water for inj. (sterile) 20 ML 10 ML IVP SCH (09:11)
[2017-02-25] MEDS: Furosemide 40 MG/4 ML VIAL IVP SCH ×2 (09:12→16:44)
[2017-02-25] MEDS: Aspirin Enteric Coated 325 MG Tablet PO SCH (09:12)
--- NOTE | 2017-02-25 09:18 | Cardiology Consult Note ---
<Henrik Theodore - Last Filed: 02/25/17 13:00> Date of Encounter: 02/25/17 Time of Encounter: 09:00 Assessment and Plan (1) Chest pain Current Visit: No Status: Resolved Patient presented to the hospital with chest pressure at rest; rated 8/10. Extensive cardiac history; known history of CHF. Troponin level is elevated at presentation was 0.07. Patient's chest pain is possibly due demand ischemia. Patient denied chest pain this morning. Plan: -Nitroglycerin SL Q5 min PRN. -O2 via NC. -Morphine 2 mg IV Q4 PRN -D/C anticoagulation x 48 hr. Qualifiers: Chest pain type: other chest pain Qualified Code(s): R07.89 - Other chest pain; R07.8 - Other chest pain (2) CAD (coronary artery disease) Current Visit: No Status: Chronic Patient has a known history of coronary artery disease. 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 transplanted heart: [place] heart Associated angina: angina presence unspecified Qualified Code(s): I25.10 - Atherosclerotic heart disease of [place] coronary artery without angina pectoris (3) Elevated troponin Current Visit: Yes Status: Acute -Patient presented with an elevated troponin level. -Possibly due to demand ischemia -Troponin levels have been as follows: 0.07, 0.06, 0.05. -Currently on heparin drip; will D/C for 48 hr. (4) CHF (congestive heart failure) Current Visit: Yes Status: Acute Patient has known history of CHF. Last echocardiogram was on 06/25/16, temperature to the following: -LVEF 15-20% with severe global hypokinesis and regional variations. -Severely dilated LA. -Bioprosthetic valve with gradients that are likely normal (no valve information information available) with mild regurgitation (not perivalvular) -Diastolic dysfunction, NOS -No diagnostic pulmonary hypertension but RVSP maybe underestimated with eccentric TR jet. Plan: -Continue Lasix 40 mg IV BID -Strict I's and O's, daily weights, cardiac diet, sodium restriction. -Repeat ECHO Qualifiers: Congestive heart failure type: systolic Congestive heart failure chronicity : acute on chronic Qualified Code(s): I50.23 - Acute on chronic systolic ( congestive) heart failure Discussion w patient/family: The assessment and plan as outlined above was discussed with the patient and/or family members who expressed understanding and agreement. All questions were answered. Thank you for involving us in the care of your patient. Please call with any questions. History of Present Illness Consult date: 02/25/17 Chief complaint: SOB and Chest pain History of present illness: Ms. Buckner is a 61 year old female with a PMH of CAD, CHF mitral valve replacement ( [facility] 2015 ), CKD, [place] with stents, COPD O2 dependent (2 L nasal cannula) DVT presented to the hospital with chief complaint of shortness of breath and chest tightness x 1 week. Patient was previously diagnosed with PNA and was prescribed antibiotics, however she has not been able to fill her antibiotics due to insurance reasons. She rates her chest tightness as 9/10. She also complains of a neck muscle spasm on the right side she rates 8/10. On presentation to hospital, patient was tachycardic at 106 bpm and had a respiratory rate of 20/min. EKG was obtained and demonstrated a new BBB. CXR demonstrated the presence of cardiomegaly with pulmonary vascular congestion. Labs were drawn, and patient was found to have an elevated troponin at 0.07. Heparinization was started. Patient was also given duo nebs 3, Solu-Medrol 125 mg IV, and nitroglycerin. Patient was started on Rocephin for pneumonia. Patient has borderline elevated QTc, so azithromycin and Levaquin were not given. Patient has a known extensive cardiac history. In June of this year, patient received [facility] showing CT of distal RCA with L-to-R collaterals. Last ECHO severely reduced EF of 15 and 20% dilated cardiomyopathy nonischemic cardiology recommended medical management. Patient seen and examined at bedside this morning. Reports feeling much better today. Admits to mild shortness of breath on exertion when she gets up to use the restroom. Denies chest pain, cough, swelling, or sputum production. No complaints at this time. Past Med Surg Social Fam HX - Past Medical History Medical history: CHF, COPD, coronary artery disease, DVT, hyperlipidemia, myocardial infarction, seizures, valvular heart disease, other Psychiatric history: anxiety, depression - Past Surgical History Surgical History: angioplasty/stent (Patient reports placement of 4 stents following for MIs.), heart valve replacement, pacemaker - Social History Smoking Status: Former smoker Smokeless Tobacco Status: No Alcohol use: none Drug use: none - Family History Father Living Status: Cause of : heart attack Hx Family Cardiac Disorders: Yes ([place]) Hx Family Psychosocial Disorders: Yes Brother Living Status: Still Living Hx Family Cardiac Disorders: Yes ([place]) Medications and Allergies Furosemide [Lasix] 40 mg PO DAILY 06/25/16 [History] Gemfibrozil [Lopid] 600 mg PO BID 06/25/16 [History] Levothyroxine [Synthroid] 88 mcg PO DAILY 06/25/16 [History] Metoprolol [Lopressor] 25 mg PO BID 06/25/16 [History] Pantoprazole Sodium [Protonix] 40 mg PO DAILY 06/25/16 [History] Pravastatin Sodium [Pravachol] 80 mg PO DAILY 06/25/16 [History] Sertraline [Zoloft] 200 mg PO DAILY 06/25/16 [History] clonazePAM [Klonopin] 1 mg PO BID 06/25/16 [History] Lisinopril [Zestril] 2.5 mg PO DAILY tablet 06/29/16 [Rx] Albuterol Neb [Proventil Neb] 2.5 mg IH Q6H PRN 02/24/17 [History] Albuterol Sulfate [Ventolin Hfa] 2 puff IH Q4H PRN 02/24/17 [History] Aspirin Enteric Coated [Aspirin EC] 325 mg PO DAILY 02/24/17 [History] Clopidogrel [Plavix] 75 mg PO DAILY 02/24/17 [History] 3 Allergy/AdvReac Type Severity Reaction Status Date / Time No Known Allergies Allergy Verified 06/25/16 06:39 All Systems Review: A 10-system review of systems was performed and is negative for pertinent findings except as documented above in the HPI. - Constitutional Constitutional: no lethargy - Cardiovascular Cardiovascular: no chest pain at rest, no dyspnea at rest, no dyspnea on exertion, no irregular heart rhythm, no radiating jaw, neck or arm pain Physical Examination Vital Signs, Last 4 Hours Temp Pulse Resp BP Pulse Ox 02/25/17 08:15 97.7 F 107 16 101/66 93 General: Conversant, No Apparent Distress HEENT: Atraumatic, Normocephaly, Mucus Membranes Moist Neck: No JVD, Normal carotid pulses Cardiac: Reg Rate and Rhythm, Normal S1 and S2, No Murmur Lungs: Normal Breath Sounds, No Wheeze, Rales, Rhonchi Neuro: Alert and responsive, No focal deficits noted Skin: No rashes noted on visualized skin Musculoskeletal: No Chest Wall Tenderness Extremities: No Clubbing, No Cyanosis, No Edema, Normal Pulses Results 02/25/17 03:26 02/25/17 03:26 Lab Results 02/24/17 02/24/17 02/25/17 21:16 23:02 03:26 WBC Hgb Hct Plt Count APTT 213.1 H* D Sodium Potassium Chloride Carbon Dioxide BUN Creatinine Glucose Calcium Magnesium Troponin I 0.06 H* 0.05 H* 02/25/17 02/25/17 02/25/17 03:26 03:26 06:18 WBC 5.5 Hgb 11.1 L Hct 36.3 Plt Count 188 APTT 94.5 H D Sodium 137 Potassium 4.4 Chloride 111 H Carbon Dioxide 17 L BUN 30 H Creatinine 1.53 H Glucose 162 H Calcium 8.7 Magnesium 1.8 Troponin I Consult Discharge Plan - Plan Referrals: NONE,PCP [Primary Care Provider] - <YvesAngie - Last Filed: 02/25/17 15:53> Date of Encounter: 02/25/17 - Attending Attestation I examined this patient and my medical decision-making was reviewed with the Resident Physician. I agree with the documented findings, disposition and treatment plan. Ms. Buckner presents with acute systolic heart failure exacerbation. She apparently developed pneumonia as an outpatient and was not able to obtain her antibiotics. Symptoms worsened and she presented to the emergency room. She was previously hospitalized at [facility] in June 2016 where she had an echo demonstrating severe reduction of systolic function, EF 15-20%. 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 Degree of heart failure appeared out of proportion to findings on coronary angiography and patient was treated medically for a non- ischemic cardiomyopathy. She typically follows at [facility]. Patient states she's had right-sided shoulder and neck pain but does not endorse chest pain to me. Her EKG on admission demonstrated NSR with LBBB at HR 110bpm. Looking back, she had a left bundle branch block on EKG on 2006 so the presence of a LBBB is not new. Suspect it may be rate-related. Her echo returned demonstrating findings similar to that found on echo in June 2016. LVEF is unchanged. Troponins are flat and adynamic in the setting of CHF exacerbation and did not represent an acute coronary syndrome. Recommend another 24h of IV diuresis. Recommend changing to PO maintenance lasix tomorrow. She would like to follow up with her primary gum worker to discuss further recommendations and consider AICD placement. Continue antiplatelet agents, statin and beta hailee. We will sign off. Please call with questions. Assessment and Plan Discussion w patient/family: The assessment and plan as outlined above was discussed with the patient and/or family members who expressed understanding and agreement. All questions were answered. Thank you for involving us in the care of your patient. Please call with any questions. History of Present Illness History of present illness: Ms. Buckner is a 61 year old female All Systems Review: A 10-system review of systems was performed and is negative for pertinent findings except as documented above in the HPI. Results 02/25/17 03:26 02/25/17 03:26 Lab Results 02/24/17 02/24/17 02/25/17 21:16 23:02 03:26 WBC Hgb Hct Plt Count APTT 213.1 H* D Sodium Potassium Chloride Carbon Dioxide BUN Creatinine Glucose Calcium Magnesium Troponin I 0.06 H* 0.05 H* 02/25/17 02/25/17 02/25/17 03:26 03:26 06:18 WBC 5.5 Hgb 11.1 L Hct 36.3 Plt Count 188 APTT 94.5 H D Sodium 137 Potassium 4.4 Chloride 111 H Carbon Dioxide 17 L BUN 30 H Creatinine 1.53 H Glucose 162 H Calcium 8.7 Magnesium 1.8 Troponin I
[2017-02-25] MEDS: Heparin 25,000 UNIT/500 ML D5W 25,000 UNIT/500 ML BAG IVC SCH (10:00)
--- NOTE | 2017-02-25 10:54 | Internal Med Progress Note ---
Date of Encounter: 02/28/17 Time of Encounter: 10:53 - Assessment and plan (1) CHF (congestive heart failure) Current Visit: Yes Status: Acute Assessment and plan: This patient has acute on chronic congestive heart failure. Congestive heart failure is systolic in nature. The etiology for systolic congestive heart failure is likely ischemic in nature. Last cardiac catheterization was in June 2016. Noted that raised JVP, bilateral basal crepitations, edema feet, elevated BNP more than 1000,xray chest suggestive of cardiomegaly All above goes in favor of acute on chronic systolic congestive heart failure. Elevated troponin is likely secondary to worsening CHF with demand ischemia. Noted that VQ scan is suggestive of a low probability of pulmonary embolism Plan: Propped up position. Intranasal oxygen. We will continue IV diuresis. Will continue heparin as my understanding is patient is going for cardiac catheterization. Cardiology on the board and we will follow the recommendations. Qualifiers: Congestive heart failure type: systolic Congestive heart failure chronicity : acute on chronic Qualified Code(s): I50.23 - Acute on chronic systolic ( congestive) heart failure (2) Elevated troponin Current Visit: Yes Status: Acute Assessment and plan: Elevated troponin is likely secondary to the demand ischemia (3) COPD (chronic obstructive pulmonary disease) Current Visit: Yes Status: Chronic Assessment and plan: Stable for now. Qualifiers: COPD type: unspecified COPD Qualified Code(s): J44.9 - Chronic obstructive pulmonary disease, unspecified (4) DVT prophylaxis Current Visit: No Status: Acute (5) CAD (coronary artery disease) Current Visit: No Status: Chronic Assessment and plan: Patient is presently on heparin drip Medical decision making: This patient has a moderate to severe risk of worsening in spite of being on appropriate medication due to the underlying complex comorbid conditions. Qualifiers: Coronary Disease-Associated Artery/Lesion type: [place] artery [place] vs. transplanted heart: [place] heart Associated angina: angina presence unspecified Qualified Code(s): I25.10 - Atherosclerotic heart disease of [place] coronary artery without angina pectoris - Subjective Interval history: Patient seen and examined. Chart reviewed. Patient is comfortably lying in the bed. Patient's ex- at bedside. Nexium patient gives permission to talk about her health issues in front of him. Patient denies chest pain, nausea, abdominal pain, diarrhea or dizziness. - Constitutional Vitals: Temp Pulse Resp BP Pulse Ox 97.4 F L 104 16 103/73 95 02/25/17 10:17 02/25/17 10:17 02/25/17 10:17 02/25/17 10:17 02/25/17 10:17 General appearance: Present: A&O X 3 - Head Head exam: Present: atraumatic, normocephalic - Eye Eye exam: Present: PERRL, conjuntiva pink, sclera anicteric Pupils: Present: PERRL - Neck Neck exam general surgery: Present: supple, trachea midline. Absent: lymphadenopathy - Respiratory Respiratory exam: Present: CTAB. Absent: accessory muscle use, rales, rhonchi, wheezes - Cardiovascular Cardiovascular exam: Present: RRR, +S1, +S2. Absent: diastolic murmur, gallop, rubs, systolic murmur - GI/Abdominal GI/Abdominal exam: Present: normal bowel sounds, soft, no peritoneal signs. Absent: distended, tenderness - Extremities Exam Extremities exam: Present: warm, radial pulses palpable and symmetrical. Absent : calf tenderness, cyanotic, pedal edema - Neurological Exam Neurological exam: Present: CN II-XII intact, oriented X3, no focal deficits. Absent: pronater drift, facial droop, speech deficit - Skin Skin exam: Present: dry, intact Internal Medicine: Result - Labs CBC & Chem 7: 02/28/17 03:19 02/28/17 03:19 Labs: Short CBC 02/25/17 Range/Units 03:26 WBC 5.5 (4.3-11.1) K/mcL Hgb 11.1 L (11.5-15.4) g/dL Hct 36.3 (35.3-44.9) % Plt Count 188 (140-400) K/mcL Neutrophils # 4.8 (1.6-8.9) K/mcL BMP 02/25/17 03:26 Sodium 137 Potassium 4.4 Chloride 111 H Carbon Dioxide 17 L BUN 30 H Creatinine 1.53 H Glucose 162 H Calcium 8.7 Cardiac Enzymes 02/24/17 02/25/17 Range/Units 21:16 03:26 Troponin I 0.06 H* 0.05 H* (< 0.04) ng/mL - ABG Interpretation ABG results: PT/INR, D-dimer PT 12.4 Seconds (9.4-12.1) H 02/24/17 15:10 - Impressions Impressions Pulmonary Perfusion Imaging 02/24/17 21:01 IMPRESSION: Low Probability for Pulmonary Embolus. D/ / Avtar Oliver MD / Avtar Oliver MD Interpreting Provider: Avtar Oliver MD - VTE Documentation of Mechanical Device: Intermittent pneumatic compression device Consult Discharge Plan - Plan Referrals: NONE,PCP [Primary Care Provider] -
[2017-02-25] MEDS ORDERED: Perflutren Lipid Microsphere 1.3 ML in 0.9 % Sodium Chloride 8.7 ML IVP ONE (13:21)
[2017-02-25] MEDS ORDERED: Perflutren Lipid Microsphere 2 ML VIAL ONE (14:00)
--- NOTE | 2017-02-25 18:11 | Electrocardiograph Report ---
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
[2017-02-25 19:33] LABS: Acinetobacter baumannii by PCR Not Detected (Not Detect); Candida albicans by PCR Not Detected (Not Detect); Candida glabrata by PCR Not Detected (Not Detect); Candida krusei by PCR Not Detected (Not Detect); Candida parapsilosis by PCR Not Detected (Not Detect); Candida tropicalis by PCR Not Detected (Not Detect); Enterococcus by PCR Not Detected (Not Detect); Escherichia coli by PCR Not Detected (Not Detect); Klebsiella oxytoca by PCR Not Detected (Not Detect); Klebsiella pneumoniae by PCR Not Detected (Not Detect); Pseudomonas aeruginosa by PCR Not Detected (Not Detect); Serratia marcescens by PCR Not Detected (Not Detect); Staphylococcus aureus by PCR Not Detected (Not Detect); Streptococcus agalactiae(B)PCR Not Detected (Not Detect); Streptococcus by PCR ***DETECTED*** (Not Detect); Streptococcus pneumoniae PCR Not Detected (Not Detect); Streptococcus pyogenes (A) PCR Not Detected (Not Detect); blaKPC Carbapenem-Resist Gene Not Detected (Not Detect); mecA Methicillin-Resist Gene Not Detected (Not Detect); vanA/B Vancomycin-Resist Genes Not Detected (Not Detect)
[2017-02-25] MEDS: clonazePAM 1 MG TABLET PO SCH (20:04)
[2017-02-25] MEDS: *HR* Morphine 2 MG/ML SYRINGE IVP PRN (21:13)
[2017-02-26 02:20] LABS: Basophils % 0.2 %; Eosinophils % 0.2 %; Hematocrit 39.3 % (35.3-44.9); Immature Granulocytes % 0.7 % (0-4); Lymphocytes # 2.4 K/mcL (0.6-4.6); Lymphocytes % 19.8 %; Mean Corpuscular HGB Conc 30.5 g/dL (31.6-35.5); Mean Corpuscular Hemoglobin 28.6 pg (28.0-33.3); Mean Corpuscular Volume 93.6 fL (83.0-100.0); Mean Platelet Volume 12.4 fL (9.4-12.4); Monocytes # 0.7 K/mcL (0.0-1.3); Monocytes % 5.6 %; Nucleated Red Blood Cells 0.2 /100 WBC (0); Platelet Count 195 K/mcL (140-400); Red Cell Distribution Width 18.5 % (11.5-14.5); Segmented Neutrophils % 73.5 %
[2017-02-26 02:35] LABS: Albumin 3.9 g/dL (3.5-5.7); Albumin/Globulin Ratio 1.5 (1.1-2.2); Bilirubin,Total 0.4 mg/dL (0.3-1.0); Calcium 8.8 mg/dL (8.6-10.3); Globulin 2.6 g/dL (2.4-3.5); Potassium 4.6 mEq/L (3.5-5.1); Total Protein 6.5 g/dL (6.4-8.9)
[2017-02-26] MEDS: Levalbuterol Neb 1.25 MG/3 ML IH SCH ×3 (03:55→16:08)
[2017-02-26] MEDS: Aspirin Enteric Coated 325 MG Tablet PO SCH (07:52)
[2017-02-26] MEDS: clonazePAM 1 MG TABLET PO SCH ×2 (07:53→21:08)
[2017-02-26] MEDS: *HR* Morphine 2 MG/ML SYRINGE IVP PRN ×3 (07:53→22:44)
[2017-02-26] MEDS: cefTRIAXone 1,000 MG in Water for inj. (sterile) 20 ML 10 ML IVP SCH (07:54)
[2017-02-26] MEDS: Furosemide 40 MG/4 ML VIAL IVP SCH ×2 (07:54→17:01)
[2017-02-26] MEDS: Metoprolol XL (24 HR) Succ 50 MG TAB.ER.24H PO SCH (07:55)
--- NOTE | 2017-02-26 08:00 | Electrocardiograph Report ---
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
[2017-02-26] MEDS: *HR* OxyCODONE/APAP 5/325 TABLET PO PRN (10:10)
[2017-02-26] MEDS ORDERED: Levalbuterol Neb 1.25 MG/3 ML IH PRN (16:08)
--- NOTE | 2017-02-26 16:42 | Internal Med Progress Note ---
Date of Encounter: 02/28/17 Time of Encounter: 16:40 - Assessment and plan (1) CHF (congestive heart failure) Current Visit: Yes Status: Acute Assessment and plan: This patient has acute on chronic congestive heart failure. Congestive heart failure is systolic in nature. The etiology for systolic congestive heart failure is likely ischemic in nature. Last cardiac catheterization was in June 2016. Noted that raised JVP, bilateral basal crepitations, edema feet, elevated BNP more than 1000,xray chest suggestive of cardiomegaly All above goes in favor of acute on chronic systolic congestive heart failure. Elevated troponin is likely secondary to worsening CHF with demand ischemia. Noted that VQ scan is suggestive of a low probability of pulmonary embolism Plan: Propped up position. Intranasal oxygen. We will continue IV diuresis. Will continue heparin as my understanding is patient is going for cardiac catheterization. Cardiology on the board and we will follow the recommendations. 02/26/2017 Patient is comfortably lying in a bed. patient is complaining of right-sided shoulder pain. patient has OCCASIONAL right-sided chest pain. This is a reproducible chest pain. Plan: Will optimize medications/dialysis. We will consider patient to go home tomorrow. Qualifiers: Congestive heart failure type: systolic Congestive heart failure chronicity : acute on chronic Qualified Code(s): I50.23 - Acute on chronic systolic ( congestive) heart failure (2) Elevated troponin Current Visit: Yes Status: Acute Assessment and plan: Elevated troponin is likely secondary to the demand ischemia (3) COPD (chronic obstructive pulmonary disease) Current Visit: Yes Status: Chronic Assessment and plan: Stable for now. Qualifiers: COPD type: unspecified COPD Qualified Code(s): J44.9 - Chronic obstructive pulmonary disease, unspecified (4) DVT prophylaxis Current Visit: No Status: Acute (5) CAD (coronary artery disease) Current Visit: No Status: Chronic Assessment and plan: Patient is presently on heparin drip Medical decision making: This patient has a moderate to severe risk of worsening in spite of being on appropriate medication due to the underlying complex comorbid conditions. Qualifiers: Coronary Disease-Associated Artery/Lesion type: [place] artery [place] vs. transplanted heart: [place] heart Associated angina: angina presence unspecified Qualified Code(s): I25.10 - Atherosclerotic heart disease of [place] coronary artery without angina pectoris - Subjective Interval history: Patient seen and examined. Chart reviewed. Patient is comfortably lying in the bed. Patient's ex- at bedside. Nexium patient gives permission to talk about her health issues in front of him. Patient denies chest pain, nausea, abdominal pain, diarrhea or dizziness. 02/26/2017. Patient seen and examined. Chart reviewed. patient is comfortably lying in the bed. patient's ex- at bedside Patient denies any complaint of chest pain, shortness of breath, nausea, vomiting, abdominal pain - Constitutional Vitals: Temp Pulse Resp BP Pulse Ox 97.5 F L 107 18 95/73 98 02/26/17 12:45 02/26/17 12:45 02/26/17 12:45 02/26/17 12:45 02/26/17 12:45 General appearance: Present: A&O X 3 - Head Head exam: Present: atraumatic, normocephalic - Eye Eye exam: Present: PERRL, conjuntiva pink, sclera anicteric Pupils: Present: PERRL - Neck Neck exam general surgery: Present: supple, trachea midline. Absent: lymphadenopathy - Respiratory Respiratory exam: Present: CTAB. Absent: accessory muscle use, rales, rhonchi, wheezes - Cardiovascular Cardiovascular exam: Present: RRR, +S1, +S2. Absent: diastolic murmur, gallop, rubs, systolic murmur - GI/Abdominal GI/Abdominal exam: Present: normal bowel sounds, soft, no peritoneal signs. Absent: distended, tenderness - Extremities Exam Extremities exam: Present: warm, radial pulses palpable and symmetrical. Absent : calf tenderness, cyanotic, pedal edema - Neurological Exam Neurological exam: Present: CN II-XII intact, oriented X3, no focal deficits. Absent: pronater drift, facial droop, speech deficit - Skin Skin exam: Present: dry, intact Internal Medicine: Result - Labs CBC & Chem 7: 02/28/17 03:19 02/28/17 03:19 Labs: Short CBC 02/26/17 Range/Units 02:05 WBC 12.2 H D (4.3-11.1) K/mcL Hgb 12.0 (11.5-15.4) g/dL Hct 39.3 (35.3-44.9) % Plt Count 195 (140-400) K/mcL Neutrophils # 9.0 H (1.6-8.9) K/mcL BMP 02/26/17 02:05 Sodium 138 Potassium 4.6 Chloride 109 H Carbon Dioxide 19 L BUN 43 H Creatinine 2.13 H Glucose 102 Calcium 8.8 Liver Function 02/26/17 Range/Units 02:05 Total Bilirubin 0.4 (0.3-1.0) mg/dL AST 82 H (13-39) Units/L ALT 63 H (7-52) Units/L Alkaline Phosphatase 144 H (34-104) Units/L Albumin 3.9 (3.5-5.7) g/dL - ABG Interpretation ABG results: PT/INR, D-dimer PT 12.4 Seconds (9.4-12.1) H 02/24/17 15:10 - VTE Documentation of Mechanical Device: Intermittent pneumatic compression device Consult Discharge Plan - Plan Referrals: NONE,PCP [Primary Care Provider] -
[2017-02-27 03:59] LABS: Basophils # 0.1 K/mcL (0.0-0.2); Basophils % 0.5 %; Eosinophils # 0.1 K/mcL (0.0-0.6); Eosinophils % 1.4 %; Hematocrit 36.6 % (35.3-44.9); Hemoglobin 11.7 g/dL (11.5-15.4); Immature Granulocytes % 0.6 % (0-4); Lymphocytes # 2.6 K/mcL (0.6-4.6); Lymphocytes % 26.5 %; Mean Corpuscular Hemoglobin 28.3 pg (28.0-33.3); Mean Corpuscular Volume 88.4 fL (83.0-100.0); Mean Platelet Volume 12.2 fL (9.4-12.4); Monocytes # 0.7 K/mcL (0.0-1.3); Monocytes % 7.2 %; Neutrophils # 6.3 K/mcL (1.6-8.9); Nucleated Red Blood Cells 0.6 /100 WBC (0); Platelet Count 198 K/mcL (140-400); Red Blood Count 4.14 M/mcL (3.82-4.97); Red Cell Distribution Width 17.8 % (11.5-14.5); Segmented Neutrophils % 63.8 %
[2017-02-27 04:17] LABS: Albumin/Globulin Ratio 1.5 (1.1-2.2); Bilirubin,Total 0.9 mg/dL (0.3-1.0); Calcium 8.8 mg/dL (8.6-10.3); Globulin 2.7 g/dL (2.4-3.5); Potassium 3.9 mEq/L (3.5-5.1); Total Protein 6.7 g/dL (6.4-8.9)
[2017-02-27] MEDS: cefTRIAXone 1,000 MG in Water for inj. (sterile) 20 ML 10 ML IVP SCH (08:25)
[2017-02-27] MEDS: *HR* Morphine 2 MG/ML SYRINGE IVP PRN ×4 (08:26→23:40)
[2017-02-27] MEDS: Aspirin Enteric Coated 325 MG Tablet PO SCH (08:26)
[2017-02-27] MEDS: Metoprolol XL (24 HR) Succ 50 MG TAB.ER.24H PO SCH (08:26)
[2017-02-27] MEDS: Furosemide 40 MG/4 ML VIAL IVP SCH ×2 (08:26→17:25)
[2017-02-27] MEDS: clonazePAM 1 MG TABLET PO SCH ×2 (12:16→21:34)
--- NOTE | 2017-02-27 15:25 | Internal Med Progress Note ---
Date of Encounter: 02/28/17 Time of Encounter: 15:21 - Assessment and plan (1) CHF (congestive heart failure) Current Visit: Yes Status: Acute Assessment and plan: This patient has acute on chronic congestive heart failure. Congestive heart failure is systolic in nature. The etiology for systolic congestive heart failure is likely ischemic in nature. Last cardiac catheterization was in June 2016. Noted that raised JVP, bilateral basal crepitations, edema feet, elevated BNP more than 1000,xray chest suggestive of cardiomegaly All above goes in favor of acute on chronic systolic congestive heart failure. Elevated troponin is likely secondary to worsening CHF with demand ischemia. Noted that VQ scan is suggestive of a low probability of pulmonary embolism Plan: Propped up position. Intranasal oxygen. We will continue IV diuresis. Will continue heparin as my understanding is patient is going for cardiac catheterization. Cardiology on the board and we will follow the recommendations. 02/26/2017 Patient is comfortably lying in a bed. patient is complaining of right-sided shoulder pain. patient has OCCASIONAL right-sided chest pain. This is a reproducible chest pain. Plan: Will optimize medications/dialysis. We will consider patient to go home tomorrow. 02/27/2017 X-ray chest: Stable cardiomegaly no acute process X-ray right shoulder: No degenerative orthopedic changes. Likely the pain from the right-sided chest is musculoskeletal. Presently we are continuing IV diuresis. Possibly patient can go home tomorrow. Qualifiers: Congestive heart failure type: systolic Congestive heart failure chronicity : acute on chronic Qualified Code(s): I50.23 - Acute on chronic systolic ( congestive) heart failure (2) Elevated troponin Current Visit: Yes Status: Acute Assessment and plan: Elevated troponin is likely secondary to the demand ischemia (3) COPD (chronic obstructive pulmonary disease) Current Visit: Yes Status: Chronic Assessment and plan: Stable for now. Qualifiers: COPD type: unspecified COPD Qualified Code(s): J44.9 - Chronic obstructive pulmonary disease, unspecified (4) DVT prophylaxis Current Visit: No Status: Acute (5) CAD (coronary artery disease) Current Visit: No Status: Chronic Assessment and plan: Patient is presently on heparin drip Medical decision making: This patient has a moderate to severe risk of worsening in spite of being on appropriate medication due to the underlying complex comorbid conditions. Qualifiers: Coronary Disease-Associated Artery/Lesion type: [place] artery [place] vs. transplanted heart: [place] heart Associated angina: angina presence unspecified Qualified Code(s): I25.10 - Atherosclerotic heart disease of [place] coronary artery without angina pectoris - Subjective Interval history: Patient seen and examined. Chart reviewed. Patient is comfortably lying in the bed. Patient's ex- at bedside. Nexium patient gives permission to talk about her health issues in front of him. Patient denies chest pain, nausea, abdominal pain, diarrhea or dizziness. 02/26/2017. Patient seen and examined. Chart reviewed. patient is comfortably lying in the bed. patient's ex- at bedside Patient denies any complaint of chest pain, shortness of breath, nausea, vomiting, abdominal pain 02/27/2017. Patient seen and examined. Chart reviewed. Patient is lying comfortably in the bed. patient still complains of right-sided pain which is radiating to shoulder Patient claims that the pain is getting better. - Constitutional Vitals: Temp Pulse Resp BP Pulse Ox 98.4 F 110 18 115/81 90 02/27/17 12:30 02/27/17 12:30 02/27/17 12:30 02/27/17 12:30 02/27/17 12:30 General appearance: Present: A&O X 3 - Head Head exam: Present: atraumatic, normocephalic - Eye Eye exam: Present: PERRL, conjuntiva pink, sclera anicteric Pupils: Present: PERRL - Neck Neck exam general surgery: Present: supple, trachea midline. Absent: lymphadenopathy - Respiratory Respiratory exam: Present: CTAB. Absent: accessory muscle use, rales, rhonchi, wheezes - Cardiovascular Cardiovascular exam: Present: RRR, +S1, +S2. Absent: diastolic murmur, gallop, rubs, systolic murmur - GI/Abdominal GI/Abdominal exam: Present: normal bowel sounds, soft, no peritoneal signs. Absent: distended, tenderness - Extremities Exam Extremities exam: Present: warm, radial pulses palpable and symmetrical. Absent : calf tenderness, cyanotic, pedal edema - Neurological Exam Neurological exam: Present: CN II-XII intact, oriented X3, no focal deficits. Absent: pronater drift, facial droop, speech deficit - Skin Skin exam: Present: dry, intact Internal Medicine: Result - Labs CBC & Chem 7: 02/28/17 03:19 02/28/17 03:19 Labs: Short CBC 02/27/17 Range/Units 03:34 WBC 9.9 (4.3-11.1) K/mcL Hgb 11.7 (11.5-15.4) g/dL Hct 36.6 (35.3-44.9) % Plt Count 198 (140-400) K/mcL Neutrophils # 6.3 (1.6-8.9) K/mcL BMP 02/27/17 03:34 Sodium 137 Potassium 3.9 Chloride 102 Carbon Dioxide 24 BUN 44 H Creatinine 1.83 H Glucose 97 Calcium 8.8 Liver Function 02/27/17 Range/Units 03:34 Total Bilirubin 0.9 (0.3-1.0) mg/dL AST 286 H (13-39) Units/L ALT 200 H (7-52) Units/L Alkaline Phosphatase 295 H (34-104) Units/L Albumin 4.0 (3.5-5.7) g/dL - ABG Interpretation ABG results: PT/INR, D-dimer PT 12.4 Seconds (9.4-12.1) H 02/24/17 15:10 - Impressions Impressions Chest X-Ray 02/27/17 12:50 IMPRESSION: 1. No acute cardiopulmonary process. 2. Stable cardiomegaly. D/ / Nicanor Bowman MD / Nicanor Bowman MD Interpreting Provider: Nicanor Bowman MD Shoulder X-Ray 02/27/17 12:51 IMPRESSION: 1. No radiographic finding to account for patient's right shoulder pain. D/ / Pancho Ariza MD / Pancho Ariza MD Interpreting Provider: Pancho Ariza MD - VTE Documentation of Mechanical Device: Intermittent pneumatic compression device Consult Discharge Plan - Plan Referrals: NONE,PCP [Primary Care Provider] -
[2017-02-28 04:19] LABS: Basophils % 0.4 %; Eosinophils # 0.2 K/mcL (0.0-0.6); Eosinophils % 2.4 %; Hematocrit 38.7 % (35.3-44.9); Hemoglobin 12.1 g/dL (11.5-15.4); Immature Granulocytes % 0.5 % (0-4); Lymphocytes # 2.2 K/mcL (0.6-4.6); Mean Corpuscular HGB Conc 31.3 g/dL (31.6-35.5); Mean Corpuscular Hemoglobin 28.1 pg (28.0-33.3); Mean Platelet Volume 12.6 fL (9.4-12.4); Monocytes # 0.7 K/mcL (0.0-1.3); Monocytes % 7.3 %; Neutrophils # 6.4 K/mcL (1.6-8.9); Nucleated Red Blood Cells 0.5 /100 WBC (0); Platelet Count 198 K/mcL (140-400); Red Cell Distribution Width 17.5 % (11.5-14.5); Segmented Neutrophils % 66.4 %
[2017-02-28 04:41] LABS: Albumin 4.1 g/dL (3.5-5.7); Albumin/Globulin Ratio 1.4 (1.1-2.2); Bilirubin,Total 0.8 mg/dL (0.3-1.0); Globulin 2.9 g/dL (2.4-3.5); Potassium 3.5 mEq/L (3.5-5.1)
[2017-02-28 07:47] VITALS: BP 104/72
[2017-02-28] MEDS: clonazePAM 1 MG TABLET PO SCH (08:18)
[2017-02-28] MEDS: cefTRIAXone 1,000 MG in Water for inj. (sterile) 20 ML 10 ML IVP SCH (08:18)
[2017-02-28] MEDS: Aspirin Enteric Coated 325 MG Tablet PO SCH (08:18)
[2017-02-28] MEDS: Metoprolol XL (24 HR) Succ 50 MG TAB.ER.24H PO SCH (08:18)
[2017-02-28] MEDS: Furosemide 40 MG/4 ML VIAL IVP SCH (08:18)
--- NOTE | 2017-02-28 10:32 | Discharge Summary ---
Date of Encounter: 02/28/17 Time of Encounter: 10:29 - Discharge Diagnosis (1) CHF (congestive heart failure) Priority: Primary Status: Acute Qualifiers: Congestive heart failure type: systolic Congestive heart failure chronicity : acute on chronic Qualified Code(s): I50.23 - Acute on chronic systolic ( congestive) heart failure (2) Elevated troponin Priority: Primary Status: Acute (3) COPD (chronic obstructive pulmonary disease) Priority: Secondary Status: Chronic Qualifiers: COPD type: unspecified COPD Qualified Code(s): J44.9 - Chronic obstructive pulmonary disease, unspecified (4) DVT prophylaxis Priority: Secondary Status: Acute (5) CAD (coronary artery disease) Priority: Secondary Status: Chronic Qualifiers: Coronary Disease-Associated Artery/Lesion type: [place] artery [place] vs. transplanted heart: [place] heart Associated angina: angina presence unspecified Qualified Code(s): I25.10 - Atherosclerotic heart disease of [place] coronary artery without angina pectoris - Discharge Medications Prescriptions: Amoxicillin/Clavulanate [Augmentin] 500 mg PO BIDWM #6 tablet Home Medications: Furosemide [Lasix] 40 mg PO DAILY 06/25/16 [History] Gemfibrozil [Lopid] 600 mg PO BID 06/25/16 [History] Levothyroxine [Synthroid] 88 mcg PO DAILY 06/25/16 [History] Metoprolol [Lopressor] 25 mg PO BID 06/25/16 [History] Pantoprazole Sodium [Protonix] 40 mg PO DAILY 06/25/16 [History] Pravastatin Sodium [Pravachol] 80 mg PO DAILY 06/25/16 [History] Sertraline [Zoloft] 200 mg PO DAILY 06/25/16 [History] clonazePAM [Klonopin] 1 mg PO BID 06/25/16 [History] Lisinopril [Zestril] 2.5 mg PO DAILY tablet 06/29/16 [Rx] Albuterol Neb [Proventil Neb] 2.5 mg IH Q6H PRN 02/24/17 [History] Albuterol Sulfate [Ventolin Hfa] 2 puff IH Q4H PRN 02/24/17 [History] Aspirin Enteric Coated [Aspirin EC] 325 mg PO DAILY 02/24/17 [History] Clopidogrel [Plavix] 75 mg PO DAILY 02/24/17 [History] Amoxicillin/Clavulanate [Augmentin] 500 mg PO BIDWM #6 tablet 02/28/17 [Rx] Allergies/Adverse Reactions: 3 Allergy/AdvReac Type Severity Reaction Status Date / Time No Known Allergies Allergy Verified 06/25/16 06:39 Procedures/tests Complete & Pending: Procedures Performed prior 72 hours Category Date Time Status ECG 12 lead ECG [ECG] Stat Y 02/25/17 09:44 Completed EV echocardiogram w enhance Routine Y 02/25/17 09:45 Completed Date of admission: 02/24/17 17:15 Primary care physician: PCP NONE Consults: 02/24/17 20:58 Consult to Cardiology [CONS] Routine Comment: Consulting Provider: Cardiology Thuy Reason for Consult: Elevated troponin Time Notified: 20:59 Call Completed: No Discharging clinician: Joe Dueñas - Patient Status Disposition: Home, Self-Care Condition: Fair Functional capacity at discharge: uses cane/walker Overall status at discharge: patient is progressing back to baseline - Discharge Instructions Follow Up With: NONE,PCP [Primary Care Provider] - - Diet and Activity Activity: increase activity as tolerated Diet: diabetic diet Interval History: Ms. Buckner is a 61 year old female past medical history of coronary artery disease CHF mitral valve replacement ( [facility] 2015 )chronic kidney disease CAD SD with stents COPD oxygen dependent (2 L nasal cannula) DVT. Patient has a lengthy cardiac history she was admitted in June of this year to this facility for chest pain she went underwent a left heart catheterization showing CT of distal RCA with [id number] collaterals. Patient had a TTE that revealed severely reduced EF of 15 and 20% dilated cardiomyopathy nonischemic cardiology recommended medical management. 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 According to the patient she was seen at an outlying facility in [facility] approximately a week ago for increasing shortness of breath she was diagnosed with pneumonia and was discharged home on antibiotics. Patient was not able to fill her antibiotic prescription secondary to insurance reason. Throughout the week the patient continued to experience increasing shortness of breath as well as midsternal chest tightness on exertion which was nonradiating and would relieve with rest. She denies any fevers chills or increased sputum production or change in sputum. She presented to the ER with the above complaints chest pressure she rated 10 out of 10. Lab work was obtained which did reveal a critically high troponin at 0.07. There are also concerns of a new left bundle branch block. ER physician did consult and speak with Dr. Muro of cardiology. And according to records " she states that on review of old records patient has rate dependent left bundle which she states is reassuring" advice for heparinization and admitting to medicine and would see patient in consult. Hospital course: Hospital course: Patient was hospitalized. Cardiology was following patient. Recommended aggressive diuresis. Patient's creatinine initially worsened but followed by stabilizing and improving. Patient started clinically feeling better. Patient was persistently complaining of right shoulder pain/right sided chest pain. X-ray of the right-sided shoulder did not reveal anything. X -ray of the chest did not reveal any acute concerns on the right side. Case discussed with the cardiology at length. This patient is infection is between 15-20%. Patient needs AICD as outpatient. I personally spoke with SHIPPING HELPER Mr De Dios And he sent a request for outpatient follow-up with the cardiology. Noted that patient's blood culture was positive for Streptococcus mitis(please note that 1 out of 2 blood culture was positive). Patient was started on ceftriaxone initially and she received 5 days of intravenous ceftriaxone. Patient will receive altogether 8 days of antibiotics. Plan: Patient will be going home today. Patient will have a follow-up with cardiology. Sending home patient with Augmentin 500 mg twice a day for 3 days. All questions answered at the time of discharge. Patient does not have any questions, concerns, update or recommendations. - Time Spent with Patient Total time spent providing and/or coordinating discharge services: - Constitutional Vitals: Temp Pulse Resp BP Pulse Ox 97.7 F 87 16 104/72 98 02/28/17 07:46 02/28/17 07:46 02/28/17 07:46 02/28/17 07:46 02/28/17 07:46 General appearance: Present: A&O X 3 - VTE Documentation of Mechanical Device: Intermittent pneumatic compression device
== END 2017-02-28 12:17 | disposition home or self-care (01) ==
LOC: 2ANU 15:00 → EMEROO 15:00 → 2ANU 17:43
PROVIDERS: ADMIT Internal Medicine; ATTEND Family Medicine

== ENCOUNTER 2017-03-24 06:28 | Observation (INO) ==
[2017-03-24] MEDS ORDERED: Ipratropium/Albuterol Neb 3 ML IH ONE (06:37)
--- NOTE | 2017-03-24 07:00 | Emergency Department Note ---
Disposition Clinical Impression: Acute cystitis with hematuria CHF (congestive heart failure) Qualifiers: Congestive heart failure type: unspecified Congestive heart failure chronicity : unspecified Qualified Code(s): I50.9 - Heart failure, unspecified Disposition: Admitted As Inpatient Condition: Fair Referrals: NONE,PCP [Primary Care Provider] - Forms: ED Satisfaction Letter Time of Disposition: 08:52 SOB HPI - General Chief Complaint: ED Shortness of Breath/Dyspnea Stated Complaint: DARRIN Time Seen by Provider: 03/24/17 06:30 Source: patient, EMS Limitations: no limitations Nursing Notes Reviewed: Yes Vital Signs Reviewed: Yes - History of Present Illness Nontoxic-appearing 61-year-old female who arrives by EMS for evaluation of shortness of breath, productive cough, and persistent right-sided chest pain. The patient was recently discharged from this facility on 03/11/17 for evaluation of right-sided chest pain. During that time, she underwent cardiology evaluation. She was discharged home on amiodarone and digoxin. 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 She states that she was feeling much improved up until earlier this morning when she was awoken from her sleep with a sensation of worsening shortness of breath. This is made worsened by lying flat as well as exertion. She states that although improved, the right-sided chest pain does still persist. This pain does radiate into her right upper extremity. She denies any hemoptysis, fever, abdominal pain, nausea, or vomiting. The patient and her family are rather poor historians. Pt Subjective Complaint: shortness of breath, cough, chest pain Onset (ago): hour(s) Severity: moderate Consistency/Duration: gradually worsening Improves with: oxygen Worsens with: lying flat, exertion Known history of: COPD, congestive heart failure, diabetes Associated symptoms: Reports: chest pain, cough, wheezing, sputum production, orthopnea. Denies: pain with inspiration, fever, lower extremity pain, palpitations, hemoptysis, nausea/vomiting, abdominal pain Treatment prior to arrival: none Cough present: Yes Cough Description: Involuntary Cough Frequency: Intermittent Sputum production: Yes Sputum Amount: Small Sputum Color: Yellow - Related Data Home oxygen amount: none Home Medications Medication Instructions Recorded Confirmed Furosemide [Lasix] 40 mg PO DAILY 06/25/16 03/24/17 Gemfibrozil [Lopid] 600 mg PO BID 06/25/16 03/24/17 Levothyroxine [Synthroid] 88 mcg PO DAILY 06/25/16 03/24/17 Metoprolol [Lopressor] 25 mg PO BID 06/25/16 03/24/17 Pravastatin Sodium [Pravachol] 80 mg PO DAILY 06/25/16 03/24/17 Sertraline [Zoloft] 200 mg PO DAILY 06/25/16 03/24/17 clonazePAM [Klonopin] 1 mg PO BID 06/25/16 03/24/17 Albuterol Neb [Proventil Neb] 2.5 mg IH Q6H PRN 02/24/17 03/24/17 Albuterol Sulfate [Ventolin Hfa] 2 puff IH Q4H PRN 02/24/17 03/24/17 Aspirin Enteric Coated [Aspirin EC] 325 mg PO DAILY 02/24/17 03/24/17 Clopidogrel [Plavix] 75 mg PO DAILY 02/24/17 03/24/17 Acetaminophen [Non-Aspirin] 325 mg PO DAILY PRN 03/24/17 03/24/17 Apixaban [Eliquis] 5 mg PO Q12H 03/24/17 03/24/17 Potassium Chloride [K-Tab ER] 10 meq PO BID 03/24/17 03/24/17 Previous Rx's Medication Instructions Recorded Lisinopril [Zestril] 2.5 mg PO DAILY tablet 06/29/16 Allergies Allergy/AdvReac Type Severity Reaction Status Date / Time No Known Allergies Allergy Verified 03/24/17 07:56 All systems ED: reviewed and negative except as stated. Constitutional: Denies: fever, chills, weakness, weight change Eyes: Denies: eye pain, eye discharge, vision change ENT ED: Denies: ear pain, throat pain, dental pain, hearing loss, epistaxis, congestion, dysphagia Cardiovascular: Reports: as per HPI, chest pain. Denies: palpitations, dyspnea on exertion, edema, syncope Respiratory: Reports: as per HPI, cough, dyspnea, wheezes, sputum production. Denies: hemoptysis, stridor Gastrointestinal: Denies: abdominal pain, nausea, vomiting, diarrhea, constipation, hematemesis, melena, hematochezia Genitourinary: Denies: dysuria, frequency, hematuria, discharge Musculoskeletal: Denies: back pain, neck pain, arthralgia, myalgia Integumentary: Denies: rash, abrasion, lesions Neurological: Denies: headache, weakness, numbness, paresthesias, confusion, abnormal gait, vertigo Psychiatric: Denies: anxiety, depression, suicidal thoughts, homicidal thoughts , auditory hallucinations, visual hallucinations Endocrine: Denies: fatigue Hematological/Lymphatic: Denies: easy bleeding, easy bruising Allergic/Immunologic: Denies: facial swelling, urticaria Past Medical History - Past Medical History Attestation: Yes The following information was validated with the patient. Source: patient, nursing notes reviewed Medical history: Reports: atrial fibrillation, CHF, COPD, coronary artery disease, CVA, DVT, hyperlipidemia, myocardial infarction, seizures, valvular heart disease, other Surgical history: Reports: angioplasty/stent, heart valve replacement, pacemaker Psychiatric history: Reports: anxiety, depression - Social History Smoking Status: Former smoker Smokeless Tobacco Status: No Alcohol use: Reports: none Drug use: Reports: none Physical Exam - General Limitations: no limitations General appearance: alert, in no apparent distress - Head Head exam: atraumatic, normocephalic, normal inspection - Eye Eye exam: Present: normal appearance, PERRL, EOMI. Absent: nystagmus - ENT ENT exam: mucous membranes moist - Neck Neck exam: Present: normal inspection, full ROM, trachea midline - Chest Chest inspection: Present: normal inspection, symmetric chest wall rise, tenderness (Left-sided chest near site of pacemaker insertion/recent replacement.) - Respiratory Respiratory exam: Present: respiratory distress (Mild), wheezes (Bilateral expiratory wheezes noted throughout periphery.), other (Lungs sounds coarse throughout periphery.). Absent: stridor, accessory muscle use, prolonged expiratory phase - Cardiovascular Cardiovascular exam: Present: regular rate, normal rhythm, normal heart sounds - Abdominal Exam Abdominal exam: Present: soft, Non-Tender, normal bowel sounds - Extremities Exam Extremities exam: Present: full ROM, pedal edema (1-2+ pretibial edema noted bilaterally) - Neurological Exam Neurological exam: Present: alert, oriented X3 - Psychiatric Psychiatric exam: Present: normal affect, normal mood - Skin Skin exam: Present: warm, dry, intact, normal color Course Course Narrative: 0850: I spoke with Dr. Telles the hospitalist service who has accepted the patient to their services for further evaluation and treatment of CHF exacerbation and acute cystitis. I have discussed this plan with Dr. Morelos, ED attending. He has had a [id number] evaluation with the patient, reviewed her laboratory and radiology results Dr. Morelos agrees with this plan. Vital Signs Temperature 98.5 F 03/24/17 06:33 Pulse Rate 69 03/24/17 06:33 Respiratory Rate 22 03/24/17 06:33 Blood Pressure 109/86 03/24/17 06:33 O2 Sat by Pulse Oximetry 95 03/24/17 06:33 Temperature 98.5 F 03/24/17 06:33 Pulse Rate 69 03/24/17 08:00 Respiratory Rate 24 03/24/17 08:00 Blood Pressure 138/80 03/24/17 08:00 O2 Sat by Pulse Oximetry 96 03/24/17 08:00 Oxygen Delivery Oxygen Delivery Room Air Shortness of Breath/Dyspnea - Medical Records Medical records reviewed: Yes I reviewed the patient's medical records. - Lab Data Lab results reviewed: Yes I reviewed the patient's lab results. Lab results narrative: Lab Results 03/24/17 03/24/17 03/24/17 Range/Units 07:01 07:01 07:01 WBC 6.6 (4.3-11.1) K/mcL RBC 3.78 L (3.82-4.97) M/mcL Hgb 10.6 L (11.5-15.4) g/dL Hct 35.1 L (35.3-44.9) % MCV 92.9 (83.0-100.0) fL MCH 28.0 (28.0-33.3) pg MCHC 30.2 L (31.6-35.5) g/dL RDW 18.5 H (11.5-14.5) % Plt Count 213 (140-400) K/mcL MPV 11.8 (9.4-12.4) fL Immature Gran % 0.5 (0-4) % Seg Neutrophils % 82.3 % Lymphocytes % 11.0 % Monocytes % 5.6 % Eosinophils % 0.3 % Basophils % 0.3 % Neutrophils # 5.4 (1.6-8.9) K/mcL Lymphocytes # 0.7 (0.6-4.6) K/mcL Monocytes # 0.4 (0.0-1.3) K/mcL Eosinophils # 0.0 (0.0-0.6) K/mcL Basophils # 0.0 (0.0-0.2) K/mcL PT 14.1 H (9.4-12.1) Seconds INR 1.3 APTT 35.0 (26.0-36.0) Seconds Carboxyhemoglobin 2.9 (0-5) % Sodium (136-145) mEq/L Potassium (3.5-5.1) mEq/L Chloride (98-107) mEq/L Carbon Dioxide (23-29) mEq/L BUN (8-23) mg/dL Creatinine (0.60-1.20) mg/dL Est GFR ( Amer) (> 60) Est GFR (Non-Af Amer) (> 60) BUN/Creatinine Ratio (6-26) Glucose (70-105) mg/dL Calculated Osmolality (280-300) Lactic Acid (0.5-2.2) mmol/L Calcium (8.6-10.3) mg/dL Troponin I (< 0.04) ng/mL B-Natriuretic Peptide (Less than 100) pg/mL Urine Color (Yellow) Urine Clarity (Clear) Urine pH (5.0-8.0) pH Units Ur Specific [place] (1.010-1.025) Urine Protein (Neg-Trace) mg/dL Urine Glucose (UA) (Normal) mg/dL Urine Ketones (Negative) mg/dL Urine Blood (Negative) Urine Nitrite (Negative) Urine Bilirubin (Negative) Urine Urobilinogen (Normal) mg/dL Ur Leukocyte Esterase (Negative) Urine Microscopic RBC (0-3) per hpf Urine Microscopic WBC (0-3) per hpf Ur Squamous Epith Cells (None-Few) per lpf Urine Bacteria (None-Few) per hpf Ur Culture Indicated? (NO) Specimen Rejected 03/24/17 03/24/17 03/24/17 Range/Units 07:01 07:01 07:01 WBC (4.3-11.1) K/mcL RBC (3.82-4.97) M/mcL Hgb (11.5-15.4) g/dL Hct (35.3-44.9) % MCV (83.0-100.0) fL MCH (28.0-33.3) pg MCHC (31.6-35.5) g/dL RDW (11.5-14.5) % Plt Count (140-400) K/mcL MPV (9.4-12.4) fL Immature Gran % (0-4) % Seg Neutrophils % % Lymphocytes % % Monocytes % % Eosinophils % % Basophils % % Neutrophils # (1.6-8.9) K/mcL Lymphocytes # (0.6-4.6) K/mcL Monocytes # (0.0-1.3) K/mcL Eosinophils # (0.0-0.6) K/mcL Basophils # (0.0-0.2) K/mcL PT (9.4-12.1) Seconds INR APTT (26.0-36.0) Seconds Carboxyhemoglobin (0-5) % Sodium 139 (136-145) mEq/L Potassium 3.6 (3.5-5.1) mEq/L Chloride 107 (98-107) mEq/L Carbon Dioxide 23 (23-29) mEq/L BUN 23 (8-23) mg/dL Creatinine 1.07 (0.60-1.20) mg/dL Est GFR ( Amer) > 60 (> 60) Est GFR (Non-Af Amer) 52 L (> 60) BUN/Creatinine Ratio 21 (6-26) Glucose 105 (70-105) mg/dL Calculated Osmolality 292 (280-300) Lactic Acid (0.5-2.2) mmol/L Calcium 8.6 (8.6-10.3) mg/dL Troponin I 0.03 (< 0.04) ng/mL B-Natriuretic Peptide 2459 H (Less than 100) pg/mL Urine Color (Yellow) Urine Clarity (Clear) Urine pH (5.0-8.0) pH Units Ur Specific [place] (1.010-1.025) Urine Protein (Neg-Trace) mg/dL Urine Glucose (UA) (Normal) mg/dL Urine Ketones (Negative) mg/dL Urine Blood (Negative) Urine Nitrite (Negative) Urine Bilirubin (Negative) Urine Urobilinogen (Normal) mg/dL Ur Leukocyte Esterase (Negative) Urine Microscopic RBC (0-3) per hpf Urine Microscopic WBC (0-3) per hpf Ur Squamous Epith Cells (None-Few) per lpf Urine Bacteria (None-Few) per hpf Ur Culture Indicated? (NO) Specimen Rejected 03/24/17 03/24/17 03/24/17 Range/Units 07:01 07:32 07:38 WBC (4.3-11.1) K/mcL RBC (3.82-4.97) M/mcL Hgb (11.5-15.4) g/dL Hct (35.3-44.9) % MCV (83.0-100.0) fL MCH (28.0-33.3) pg MCHC (31.6-35.5) g/dL RDW (11.5-14.5) % Plt Count (140-400) K/mcL MPV (9.4-12.4) fL Immature Gran % (0-4) % Seg Neutrophils % % Lymphocytes % % Monocytes % % Eosinophils % % Basophils % % Neutrophils # (1.6-8.9) K/mcL Lymphocytes # (0.6-4.6) K/mcL Monocytes # (0.0-1.3) K/mcL Eosinophils # (0.0-0.6) K/mcL Basophils # (0.0-0.2) K/mcL PT (9.4-12.1) Seconds INR APTT (26.0-36.0) Seconds Carboxyhemoglobin (0-5) % Sodium (136-145) mEq/L Potassium (3.5-5.1) mEq/L Chloride (98-107) mEq/L Carbon Dioxide (23-29) mEq/L BUN (8-23) mg/dL Creatinine (0.60-1.20) mg/dL Est GFR ( Amer) (> 60) Est GFR (Non-Af Amer) (> 60) BUN/Creatinine Ratio (6-26) Glucose (70-105) mg/dL Calculated Osmolality (280-300) Lactic Acid 2.2 (0.5-2.2) mmol/L Calcium (8.6-10.3) mg/dL Troponin I (< 0.04) ng/mL B-Natriuretic Peptide (Less than 100) pg/mL Urine Color Dark Yellow (Yellow) Urine Clarity Cloudy A (Clear) Urine pH 6.5 (5.0-8.0) pH Units Ur Specific [place] 1.024 (1.010-1.025) Urine Protein 100 H (Neg-Trace) mg/dL Urine Glucose (UA) Normal (Normal) mg/dL Urine Ketones Trace H (Negative) mg/dL Urine Blood Large H (Negative) Urine Nitrite Negative (Negative) Urine Bilirubin Small H (Negative) Urine Urobilinogen Normal (Normal) mg/dL Ur Leukocyte Esterase Moderate H (Negative) Urine Microscopic RBC 5-15 H (0-3) per hpf Urine Microscopic WBC 5-15 H (0-3) per hpf Ur Squamous Epith Cells Many H (None-Few) per lpf Urine Bacteria Moderate H (None-Few) per hpf Ur Culture Indicated? NO. (NO) Specimen Rejected Hemolyzed Result diagrams: 03/24/17 07:01 03/24/17 07:01 Lab Results 03/24/17 03/24/17 03/24/17 Range/Units 07:01 07:01 07:01 WBC 6.6 (4.3-11.1) K/mcL RBC 3.78 L (3.82-4.97) M/mcL Hgb 10.6 L (11.5-15.4) g/dL Hct 35.1 L (35.3-44.9) % MCV 92.9 (83.0-100.0) fL MCH 28.0 (28.0-33.3) pg MCHC 30.2 L (31.6-35.5) g/dL RDW 18.5 H (11.5-14.5) % Plt Count 213 (140-400) K/mcL MPV 11.8 (9.4-12.4) fL Immature Gran % 0.5 (0-4) % Seg Neutrophils % 82.3 % Lymphocytes % 11.0 % Monocytes % 5.6 % Eosinophils % 0.3 % Basophils % 0.3 % Neutrophils # 5.4 (1.6-8.9) K/mcL Lymphocytes # 0.7 (0.6-4.6) K/mcL Monocytes # 0.4 (0.0-1.3) K/mcL Eosinophils # 0.0 (0.0-0.6) K/mcL Basophils # 0.0 (0.0-0.2) K/mcL PT 14.1 H (9.4-12.1) Seconds INR 1.3 APTT 35.0 (26.0-36.0) Seconds Carboxyhemoglobin 2.9 (0-5) % Sodium (136-145) mEq/L Potassium (3.5-5.1) mEq/L Chloride (98-107) mEq/L Carbon Dioxide (23-29) mEq/L BUN (8-23) mg/dL Creatinine (0.60-1.20) mg/dL Est GFR ( Amer) (> 60) Est GFR (Non-Af Amer) (> 60) BUN/Creatinine Ratio (6-26) Glucose (70-105) mg/dL Calculated Osmolality (280-300) Lactic Acid (0.5-2.2) mmol/L Calcium (8.6-10.3) mg/dL Troponin I (< 0.04) ng/mL B-Natriuretic Peptide (Less than 100) pg/mL Urine Color (Yellow) Urine Clarity (Clear) Urine pH (5.0-8.0) pH Units Ur Specific [place] (1.010-1.025) Urine Protein (Neg-Trace) mg/dL Urine Glucose (UA) (Normal) mg/dL Urine Ketones (Negative) mg/dL Urine Blood (Negative) Urine Nitrite (Negative) Urine Bilirubin (Negative) Urine Urobilinogen (Normal) mg/dL Ur Leukocyte Esterase (Negative) Urine Microscopic RBC (0-3) per hpf Urine Microscopic WBC (0-3) per hpf Ur Squamous Epith Cells (None-Few) per lpf Urine Bacteria (None-Few) per hpf Ur Culture Indicated? (NO) Specimen Rejected 03/24/17 03/24/17 03/24/17 Range/Units 07:01 07:01 07:01 WBC (4.3-11.1) K/mcL RBC (3.82-4.97) M/mcL Hgb (11.5-15.4) g/dL Hct (35.3-44.9) % MCV (83.0-100.0) fL MCH (28.0-33.3) pg MCHC (31.6-35.5) g/dL RDW (11.5-14.5) % Plt Count (140-400) K/mcL MPV (9.4-12.4) fL Immature Gran % (0-4) % Seg Neutrophils % % Lymphocytes % % Monocytes % % Eosinophils % % Basophils % % Neutrophils # (1.6-8.9) K/mcL Lymphocytes # (0.6-4.6) K/mcL Monocytes # (0.0-1.3) K/mcL Eosinophils # (0.0-0.6) K/mcL Basophils # (0.0-0.2) K/mcL PT (9.4-12.1) Seconds INR APTT (26.0-36.0) Seconds Carboxyhemoglobin (0-5) % Sodium 139 (136-145) mEq/L Potassium 3.6 (3.5-5.1) mEq/L Chloride 107 (98-107) mEq/L Carbon Dioxide 23 (23-29) mEq/L BUN 23 (8-23) mg/dL Creatinine 1.07 (0.60-1.20) mg/dL Est GFR ( Amer) > 60 (> 60) Est GFR (Non-Af Amer) 52 L (> 60) BUN/Creatinine Ratio 21 (6-26) Glucose 105 (70-105) mg/dL Calculated Osmolality 292 (280-300) Lactic Acid (0.5-2.2) mmol/L Calcium 8.6 (8.6-10.3) mg/dL Troponin I 0.03 (< 0.04) ng/mL B-Natriuretic Peptide 2459 H (Less than 100) pg/mL Urine Color (Yellow) Urine Clarity (Clear) Urine pH (5.0-8.0) pH Units Ur Specific [place] (1.010-1.025) Urine Protein (Neg-Trace) mg/dL Urine Glucose (UA) (Normal) mg/dL Urine Ketones (Negative) mg/dL Urine Blood (Negative) Urine Nitrite (Negative) Urine Bilirubin (Negative) Urine Urobilinogen (Normal) mg/dL Ur Leukocyte Esterase (Negative) Urine Microscopic RBC (0-3) per hpf Urine Microscopic WBC (0-3) per hpf Ur Squamous Epith Cells (None-Few) per lpf Urine Bacteria (None-Few) per hpf Ur Culture Indicated? (NO) Specimen Rejected 03/24/17 03/24/17 03/24/17 Range/Units 07:01 07:32 07:38 WBC (4.3-11.1) K/mcL RBC (3.82-4.97) M/mcL Hgb (11.5-15.4) g/dL Hct (35.3-44.9) % MCV (83.0-100.0) fL MCH (28.0-33.3) pg MCHC (31.6-35.5) g/dL RDW (11.5-14.5) % Plt Count (140-400) K/mcL MPV (9.4-12.4) fL Immature Gran % (0-4) % Seg Neutrophils % % Lymphocytes % % Monocytes % % Eosinophils % % Basophils % % Neutrophils # (1.6-8.9) K/mcL Lymphocytes # (0.6-4.6) K/mcL Monocytes # (0.0-1.3) K/mcL Eosinophils # (0.0-0.6) K/mcL Basophils # (0.0-0.2) K/mcL PT (9.4-12.1) Seconds INR APTT (26.0-36.0) Seconds Carboxyhemoglobin (0-5) % Sodium (136-145) mEq/L Potassium (3.5-5.1) mEq/L Chloride (98-107) mEq/L Carbon Dioxide (23-29) mEq/L BUN (8-23) mg/dL Creatinine (0.60-1.20) mg/dL Est GFR ( Amer) (> 60) Est GFR (Non-Af Amer) (> 60) BUN/Creatinine Ratio (6-26) Glucose (70-105) mg/dL Calculated Osmolality (280-300) Lactic Acid 2.2 (0.5-2.2) mmol/L Calcium (8.6-10.3) mg/dL Troponin I (< 0.04) ng/mL B-Natriuretic Peptide (Less than 100) pg/mL Urine Color Dark Yellow (Yellow) Urine Clarity Cloudy A (Clear) Urine pH 6.5 (5.0-8.0) pH Units Ur Specific [place] 1.024 (1.010-1.025) Urine Protein 100 H (Neg-Trace) mg/dL Urine Glucose (UA) Normal (Normal) mg/dL Urine Ketones Trace H (Negative) mg/dL Urine Blood Large H (Negative) Urine Nitrite Negative (Negative) Urine Bilirubin Small H (Negative) Urine Urobilinogen Normal (Normal) mg/dL Ur Leukocyte Esterase Moderate H (Negative) Urine Microscopic RBC 5-15 H (0-3) per hpf Urine Microscopic WBC 5-15 H (0-3) per hpf Ur Squamous Epith Cells Many H (None-Few) per lpf Urine Bacteria Moderate H (None-Few) per hpf Ur Culture Indicated? NO. (NO) Specimen Rejected Hemolyzed - Radiology Data Radiology results reviewed: Yes I reviewed the patient's radiology results. Chest X-Ray 03/24/17 06:34 IMPRESSION: Cardiomegaly with central vascular congestion. No pneumothorax or other acute process. D/ / Vaughn Skelton MD / Vaughn Skelton MD Interpreting Provider: Vaughn Skelton MD - EKG Data EKG attestation: Yes I reviewed and interpreted this EKG. EKG results narrative: EKG reviewed by Dr. Avila as well. EKG shows a paced rhythm at a ventricular rate of 69 bpm. WV interval 124, QRS duration 148, QT/QTc interval 395/415. No ectopy noted. No STEMI. Attestation Statement - Attestation Attestation: I examined this patient and my medical decision-making was reviewed with the Nurse Practitioner. I agree with the documented findings, disposition and treatment plan as described except to the extent set forth below. Recent escalation of exertional dyspnea and orthopnea. She has had sequential AV pacer for the past several years but this was changed to a biventricular pacer / AICD last week at [place]. She has not had several days of increasing orthopnea and dyspnea. Complains of pleuritic pain on the right side of her chest. She denies having been started on any type of a low sodium diet. Obese female in no apparent distress. Mildly obese Breath sounds are symmetrically diminished with basilar rales. Cardiac exam is distant heart tones, regular. Chest wall is tender in the right upper chest anteriorly. Extremities with 1+ pitting edema. Chest x-ray with marketed cardiomegaly. BNP = 2500 IV diuresis and probable admission
[2017-03-24 07:17] LABS: Basophils % 0.3 %; Eosinophils % 0.3 %; Hematocrit 35.1 % (35.3-44.9); Hemoglobin 10.6 g/dL (11.5-15.4); Immature Granulocytes % 0.5 % (0-4); Lymphocytes # 0.7 K/mcL (0.6-4.6); Mean Corpuscular HGB Conc 30.2 g/dL (31.6-35.5); Mean Corpuscular Volume 92.9 fL (83.0-100.0); Mean Platelet Volume 11.8 fL (9.4-12.4); Monocytes # 0.4 K/mcL (0.0-1.3); Monocytes % 5.6 %; Neutrophils # 5.4 K/mcL (1.6-8.9); Platelet Count 213 K/mcL (140-400); Red Blood Count 3.78 M/mcL (3.82-4.97); Red Cell Distribution Width 18.5 % (11.5-14.5); Segmented Neutrophils % 82.3 %
[2017-03-24 07:24] LABS: INR 1.3; Prothrombin Time 14.1 Seconds (9.4-12.1)
[2017-03-24 07:26] LABS: BUN/Creatinine Ratio 21 (6-26); Blood Urea Nitrogen 23 mg/dL (8-23); Calcium 8.6 mg/dL (8.6-10.3); Carbon Dioxide 23 mEq/L (23-29); Chloride 107 mEq/L (98-107); Glucose 105 mg/dL (70-105); Osmolality,Calculated 292 (280-300); Potassium 3.6 mEq/L (3.5-5.1); Sodium 139 mEq/L (136-145); eGFR For African Americans > 60 (> 60); eGFR For Non-African Americans 52 (> 60)
[2017-03-24] MEDS ORDERED: Furosemide 40 MG/4 ML VIAL IVP ONE (07:37)
[2017-03-24 07:53] LABS: Bilirubin,Urine Small (Negative); Blood,Urine Large (Negative); Clarity,Urine Cloudy (Clear); Color,Urine Dark Yellow (Yellow); Glucose,Urine (UA) Normal (Normal); Ketones,Urine Trace mg/dL (Negative); Leukocyte Esterase,Urine Moderate (Negative); Nitrite,Urine Negative (Negative); PH,Urine 6.5 pH Units (5.0-8.0); Protein,Urine 100 mg/dL (Neg-Trace); Specific Gravity,Urine 1.024 (1.010-1.025); Urobilinogen,Urine Normal (Normal)
[2017-03-24 07:55] LABS: Bacteria,Urine Moderate per hpf (None-Few); Squamous Epithelial Cell,Urine Many per lpf (None-Few)
[2017-03-24] MEDS ORDERED: Aspirin 81 MG TAB.CHEW PO STA (08:13)
[2017-03-24] MEDS ORDERED: Levofloxacin 750 MG/150 ML 750 MG/150 ML BAG IVPB SCH (09:00)
[2017-03-24] MEDS ORDERED: Naloxone 0.4 MG/ML INJ IVP PRN (10:50)
[2017-03-24] MEDS ORDERED: Albuterol 2.5 MG/3 ML NEBULIZER IH PRN (10:56)
--- NOTE | 2017-03-24 11:10 | Internal Med History&Physical ---
Date of Encounter: 03/24/17 Time of Encounter: 11:08 Assessment and Plan (1) Acute exacerbation of CHF (congestive heart failure) Current visit: Yes Status: Acute 1 echo obtained in 02/2017 revealed EF 1520% with severely dilated left ventricle atypical septal motion consistent with paced rhythm indeterminate disc diastolic function mildly dilated right ventricle mild right ventricular hypokinesis severely dilated left atrium severely dilated right atrium and a bioprosthetic mitral valve.-Patient recently had AICD changed, at [facility]-admits to being noncompliant with medications has had weight gain we will diurese the patient Lasix 40 twice a day today and reevaluate in the a.m.- monitoring creatinine-can decrease Lasix dose to once a day Monitor intake output daily weight 1500 mL fluid restriction Low-sodium diet Continue cardiac monitoring Trend troponins Patient will need education concerning CHF diet prior to discharge Qualifiers: Congestive heart failure type: systolic Qualified Code(s): I50.23 - Acute on chronic systolic (congestive) heart failure (2) UTI (urinary tract infection) Current visit: Yes Status: Acute Patient is experiencing some dysuria she does have some leuks and bacteria in urine-however sample appears to be dirty. We will treat with Rocephin since she is experiencing symptoms -urine for culture Qualifiers: Urinary tract infection type: site unspecified Hematuria presence: without hematuria Qualified Code(s): N39.0 - Urinary tract infection, site not specified (3) CAD (coronary artery disease) Current visit: No Status: Chronic Continue with aspirin and Plavix statin and beta hailee SAM Nitrates as needed for chest pain Continuous cardiac monitoring Qualifiers: Coronary Disease-Associated Artery/Lesion type: [place] artery [place] vs. transplanted heart: [place] heart Associated angina: angina presence unspecified Qualified Code(s): I25.10 - Atherosclerotic heart disease of [place] coronary artery without angina pectoris (4) COPD (chronic obstructive pulmonary disease) Current visit: No Status: Chronic Continue with bronchodilators Oxygen as needed to maintain SPO2 greater than 90% Qualifiers: COPD type: unspecified COPD Qualified Code(s): J44.9 - Chronic obstructive pulmonary disease, unspecified (5) Hypothyroidism Current visit: No Status: Chronic Continue with Synthroid Qualifiers: Hypothyroidism type: unspecified Qualified Code(s): E03.9 - Hypothyroidism , unspecified (6) DVT prophylaxis Current visit: No Status: Acute Patient has history of DVT she is on Elqiuis which we will continue Internal Medicine - H&P: HPI Chief complaint: SOB Admitted From: Emergency Dept Plans for Post Hospital Care: Home History of present illness: Ms. Buckner is a 61 year old female past medical history of CHF COPD CAD [place] with 4 stent placements CVA DVT valvular heart disease. Patient was recently admitted to this facility on 03/11/17 at that time for right-sided chest pain she was discharged on followed up with her child support specialist at [facility] at that time she underwent replacement of her AICD. She was doing, however she did notice an increase in weight gain as well as lower extremity edema. Patient does admit that she has not been compliant with fluids or medications. She continues to experience right-sided chest pain which there are no aggravating or relieving factors.early this morning she was awakened from sleep with sensation of worsening shortness of breath worsened with lying flat in the exertion. Shortness of breath did not improve despite the use of oxygen she was taken to the emergency room for evaluation. According to ER records lab work did reveal elevated BNP, elevated lactate and a leukocytosis rest of lab work was unremarkable chest x-ray did show vascular congestion patient was given IV Lasix and DuoNeb's which did improve her respiratory state. She has been admitted for further workup evaluation. Presently patient does appear to be a restaurant distress and denies any shortness of breath. Past Med Surg Social Fam HX - Past Medical History Medical history: atrial fibrillation, CHF, COPD, coronary artery disease, CVA, DVT, hyperlipidemia, myocardial infarction, seizures, valvular heart disease, other Psychiatric history: anxiety, depression - Past Surgical History Surgical History: angioplasty/stent, heart valve replacement, pacemaker - Social History Smoking Status: Former smoker Smokeless Tobacco Status: No Alcohol use: none Drug use: none - Family History Father Living Status: Hx Family Cardiac Disorders: Yes ([place]) Brother Living Status: Still Living Hx Family Cardiac Disorders: Yes ([place]) Internal Medicine - H&P: Meds Furosemide [Lasix] 40 mg PO DAILY 06/25/16 [History] Gemfibrozil [Lopid] 600 mg PO BID 06/25/16 [History] Levothyroxine [Synthroid] 88 mcg PO DAILY 06/25/16 [History] Metoprolol [Lopressor] 25 mg PO BID 06/25/16 [History] Pravastatin Sodium [Pravachol] 80 mg PO DAILY 06/25/16 [History] Sertraline [Zoloft] 200 mg PO DAILY 06/25/16 [History] clonazePAM [Klonopin] 1 mg PO BID 06/25/16 [History] Lisinopril [Zestril] 2.5 mg PO DAILY tablet 06/29/16 [Rx] Albuterol Neb [Proventil Neb] 2.5 mg IH Q6H PRN 02/24/17 [History] Albuterol Sulfate [Ventolin Hfa] 2 puff IH Q4H PRN 02/24/17 [History] Aspirin Enteric Coated [Aspirin EC] 325 mg PO DAILY 02/24/17 [History] Clopidogrel [Plavix] 75 mg PO DAILY 02/24/17 [History] Acetaminophen [Non-Aspirin] 325 mg PO DAILY PRN 03/24/17 [History] Apixaban [Eliquis] 5 mg PO Q12H 03/24/17 [History] Potassium Chloride [K-Tab ER] 10 meq PO BID 03/24/17 [History] 3 Allergy/AdvReac Type Severity Reaction Status Date / Time No Known Allergies Allergy Verified 03/24/17 07:56 All Systems PM: A 10-system review of systems was performed and is negative for pertinent findings except as documented above in the HPI. - Constitutional Constitutional: fatigue, weight gain, no chills, no fever(s), no night sweats - EENT Eyes: no change in vision, no discharge, no pain, no photophobia Nose, mouth and throat: no dysphagia, no nasal discharge, no neck pain, no sore throat - Cardiovascular Cardiovascular ROS IM: chest pain, dyspnea on exertion, edema, orthopnea - Respiratory Respiratory: cough - Gastrointestinal Gastrointestinal: no abdominal pain, no diarrhea, no hematemesis, no hematochezia, no melena, no nausea, no vomiting - Genitourinary Genitourinary: no change in urinary stream, no dysuria, no flank pain, no hematuria - Musculoskeletal Musculoskeletal ROS IM: no numbness, no tingling - Integumentary Integumentary IM: no rash, no unusual bruising - Neurological Neurological ROS: no confusion, no convulsions, no focal weakness, no numbness, no tingling, no tremor(s) - Hematologic/Lymphatic Hematologic/Lymphatic: no easy bruising - Constitutional Vitals: Temp Pulse Resp BP Pulse Ox 98.8 F 70 18 113/65 92 03/24/17 10:17 03/24/17 10:17 03/24/17 10:17 03/24/17 10:17 03/24/17 10:17 General appearance: Present: A&O X 3, morbidly obese - Head Head exam: Present: atraumatic, normocephalic - Eye Eye exam: Present: PERRL, conjuntiva pink, sclera anicteric Pupils: Present: PERRL - Neck Neck exam general surgery: Present: supple, trachea midline. Absent: lymphadenopathy - Respiratory Respiratory exam: Present: CTAB. Absent: accessory muscle use, rales, rhonchi, wheezes - Cardiovascular Cardiovascular exam: Present: RRR, +S1, +S2. Absent: diastolic murmur, gallop, rubs, systolic murmur - GI/Abdominal GI/Abdominal exam: Present: normal bowel sounds, soft, no peritoneal signs. Absent: distended, tenderness - Extremities Exam Extremities exam: Present: pedal edema, warm, radial pulses palpable and symmetrical. Absent: calf tenderness, cyanotic - Neurological Exam Neurological exam: Present: CN II-XII intact, oriented X3, no focal deficits. Absent: pronater drift, facial droop, speech deficit - Skin Skin exam: Present: dry, intact Internal Med - H&P Results - Labs CBC & Chem 7: 03/24/17 07:01 03/24/17 07:01 - EKG Data EKG shows normal: sinus rhythm - EKG Data Prior EKG available for review: yes When compared to previous EKG: there is no significant change - Diagnostic Studies Other Images Additional comments: Chest X-Ray 03/24/17 06:34 IMPRESSION: Cardiomegaly with central vascular congestion. No pneumothorax or other acute process. D/ / Vaughn Skelton MD / Vaughn Skelton MD Interpreting Provider: Vaughn Skelton MD
[2017-03-24] MEDS: Apixaban 5 MG TABLET PO SCH (11:52)
--- NOTE | 2017-03-24 12:46 | Event Note ---
Date of Encounter: 03/24/17 Time of Encounter: 12:45 Patient and examined with nurse practitioner. Agree with assessment and plan.
[2017-03-24] MEDS ORDERED: Furosemide 40 MG/4 ML VIAL IVP SCH (17:00)
[2017-03-24] MEDS: clonazePAM 1 MG TABLET PO SCH (20:39)
[2017-03-25] MEDS: Apixaban 5 MG TABLET PO SCH ×3 (00:10→23:17)
[2017-03-25 04:57] LABS: Basophils % 0.6 %; Eosinophils % 0.6 %; Hematocrit 34.4 % (35.3-44.9); Hemoglobin 10.3 g/dL (11.5-15.4); Immature Granulocytes % 0.6 % (0-4); Lymphocytes # 1.2 K/mcL (0.6-4.6); Lymphocytes % 35.2 %; Mean Corpuscular HGB Conc 29.9 g/dL (31.6-35.5); Mean Corpuscular Hemoglobin 27.6 pg (28.0-33.3); Mean Corpuscular Volume 92.2 fL (83.0-100.0); Mean Platelet Volume 11.3 fL (9.4-12.4); Monocytes # 0.3 K/mcL (0.0-1.3); Monocytes % 9.4 %; Neutrophils # 1.9 K/mcL (1.6-8.9); Nucleated Red Blood Cells 0.9 /100 WBC (0); Platelet Count 195 K/mcL (140-400); Red Blood Count 3.73 M/mcL (3.82-4.97); Red Cell Distribution Width 18.3 % (11.5-14.5); Segmented Neutrophils % 53.6 %
[2017-03-25 05:10] LABS: Calcium 8.4 mg/dL (8.6-10.3); Chol/HDL Ratio 3.8 (0-4.9); Magnesium 1.6 mg/dL (1.6-2.6); Potassium 3.1 mEq/L (3.5-5.1)
--- NOTE | 2017-03-25 07:35 | Electrocardiograph Report ---
[facility] Test Date: 2017-03-24 Pat Name: Salome Buckner Department: 104 Room: 3B14 Gender: F Corporation Secretary: : 1955 Requested By: Dwain Park Order Number: [id number] Reading MD: Laurie Coelho DO Measurements Intervals [place] Rate: 69 P: 82 VA: 124 QRS: -70 QRSD: 148 T: 122 QT: 395 QTc: 415 Interpretive Statements ELECTRONIC ATRIAL PACEMAKER ELECTRONIC VENTRICULAR PACEMAKER ABNORMAL RHYTHM ECG Electronically Signed On 03-25-2017 7:34:07 EST by Laurie Coelho DO
[2017-03-25] MEDS: clonazePAM 1 MG TABLET PO SCH ×2 (08:06→20:37)
[2017-03-25] MEDS: cefTRIAXone 1,000 MG in Water for inj. (sterile) 20 ML 10 ML IVP SCH (08:07)
[2017-03-25] MEDS: Aspirin Enteric Coated 325 MG Tablet PO SCH (08:08)
[2017-03-25] MEDS: Furosemide 40 MG/4 ML VIAL IVP SCH (08:20)
--- NOTE | 2017-03-25 11:34 | Internal Med Progress Note ---
Date of Encounter: 03/25/17 Time of Encounter: 11:20 - Assessment and plan (1) Acute exacerbation of CHF (congestive heart failure) Current Visit: Yes Status: Acute Assessment and plan: Patient presents with acute exacerbation of chronic systolic CHF. Recent AICD replaced at [place] and she admits being noncompliant with medications and fluid restriction. She reports recent weight gain and increased peripheral edema. Echo from February, showed an EF of 15-20%, indeterminate diastolic function, mildly dilated RV, mild RV hypokinesis, severely dilated left atrium and right atrium with a bioprosthetic mitral valve. Patient was given Lasix 40 mg twice a day, due to declining renal function, it has been decreased to once a day. Chest x-ray shows cardiomegaly with central vascular congestion, no other acute process. Patient with +1-2 nonpitting bilateral lower extremity edema. Rhonchi and wheezing heard in the posterior lung rojo, patient also has acute exacerbation of COPD. Continue overhead crane operator strict I and O and daily weight 1.5 L fluid restriction, diabetic diet, cardiac diet, low sodium Qualifiers: Congestive heart failure type: systolic Qualified Code(s): I50.23 - Acute on chronic systolic (congestive) heart failure (2) Morbid obesity Current Visit: Yes Status: Acute Assessment and plan: Lifestyle modifications. Chronic. (3) Chronic renal disease, stage 3, moderately decreased glomerular filtration rate (GFR) between 30-59 mL/min/1.73 square meter Current Visit: Yes Status: Acute Assessment and plan: Sr Cr 1.33, GFR 40, appears to be better than pt's recent baseline, but has declined since admission. Pt was getting 40mg IV Lasix BID, decreased to daily. ACEI has been held, as well. Levaquin was stopped as well due to potential for nephrotoxicity. Pt is on Rocephin for UTI, does not appear to need antibiotic for COPD. Monitor blood pressure and labs for renal function. (4) CAD (coronary artery disease) Current Visit: Yes Status: Chronic Assessment and plan: Patient has mild right-sided chest pain that she has had since prior to new pacemaker replacement. We will continue aspirin, statin, Plavix, beta hailee. Randal inhibitor is held for declining renal function. Nitroglycerin as needed for chest pain Continue telemetry Qualifiers: Coronary Disease-Associated Artery/Lesion type: [place] artery [place] vs. transplanted heart: [place] heart Associated angina: angina presence unspecified Qualified Code(s): I25.10 - Atherosclerotic heart disease of [place] coronary artery without angina pectoris (5) Pacemaker Current Visit: Yes Status: Chronic Assessment and plan: Patient had pacemaker replaced on March 18 at [facility]. Site is intact Steri-Strips remain intact. There is no bleeding, swelling or drainage. Continue to monitor site. Continue telemetry (6) COPD (chronic obstructive pulmonary disease) Current Visit: Yes Status: Chronic Assessment and plan: Mild exacerbation. Increased SOB and cough. Pt also with CHF exacerbation, as well. Pt has 02 at home, 3L prn, it not wearing 02 now. Suspect that she was placed on Levaquin for COPD, has been stopped. Pt has no fever, tachycardia, sputum production. CXR nwith cardiomegaly with central vascular congestion, no acute process. Continue bronchodilators and 02 as needed to maintain sats > 92%. Monitor labs and vitals for worsening condition Qualifiers: COPD type: unspecified COPD Qualified Code(s): J44.9 - Chronic obstructive pulmonary disease, unspecified (7) Hypothyroidism Current Visit: Yes Status: Chronic Assessment and plan: Chronic. Continue home dose of Levothyroxine. Qualifiers: Hypothyroidism type: unspecified Qualified Code(s): E03.9 - Hypothyroidism , unspecified (8) UTI (urinary tract infection) Current Visit: Yes Status: Acute Assessment and plan: Pt reports symptomatic dysura for 2-3 days. Urine cloudy with moderate leukocyte esterase and moderate bacteria, but culture was not indicated due to many epithelial cells. Will treat with Rocephin since she is symptmatic, continue to monitor. Qualifiers: Urinary tract infection type: site unspecified Hematuria presence: without hematuria Qualified Code(s): N39.0 - Urinary tract infection, site not specified (9) DVT prophylaxis Current Visit: Yes Status: Acute Assessment and plan: Prior history of DVT, pt is on Eliquis. Continue. - Subjective Interval history: Patient was seen and assessed at 1120. She is sitting up in the bed, taxing, in no distress. She reports that she normally has 3 L of oxygen to use when necessary at home. She is not requiring supplemental oxygen at this time. We discussed acute kidney injury and care plan. She denied any questions. She denies headache, shortness of breath at rest, increased peripheral edema, abdominal pain, nausea vomiting or diarrhea. Patient will most likely be here for 2 more days for monitoring and diuresis. - Constitutional Vitals: Temp Pulse Resp BP Pulse Ox 98.1 F 69 16 127/86 96 03/25/17 08:02 03/25/17 08:02 03/25/17 08:02 03/25/17 08:02 03/25/17 08:24 General appearance: Present: A&O X 3, morbidly obese, pleasant, no acute distress, answers questions appropriately - Head Head exam: Present: atraumatic, normal inspection, normocephalic - Eye Eye exam: Present: normal appearance, conjuntiva pink, sclera anicteric - Neck Neck exam general surgery: Present: normal inspection, supple, trachea midline. Absent: lymphadenopathy, tenderness - Respiratory Respiratory exam: Present: rhonchi, wheezes. Absent: accessory muscle use, chest wall tenderness, CTAB, rales, respiratory distress - Cardiovascular Cardiovascular exam: Present: RRR, +S1, +S2, tachycardia. Absent: diastolic murmur, gallop, rubs, systolic murmur - GI/Abdominal GI/Abdominal exam: Present: normal bowel sounds, soft, no peritoneal signs. Absent: distended, hepatomegaly, tenderness - Extremities Exam Extremities exam: Present: pedal edema, warm, radial pulses palpable and symmetrical. Absent: calf tenderness, cyanotic, normal inspection - Neurological Exam Neurological exam: Present: alert, oriented X3, no focal deficits. Absent: facial droop, speech deficit - Skin Skin exam: Present: dry, intact, normal color, warm. Absent: rash Internal Medicine: Result - Labs CBC & Chem 7: 03/25/17 03:53 03/25/17 03:53 Labs: Short CBC 03/25/17 Range/Units 03:53 WBC 3.5 L (4.3-11.1) K/mcL Hgb 10.3 L (11.5-15.4) g/dL Hct 34.4 L (35.3-44.9) % Plt Count 195 (140-400) K/mcL Neutrophils # 1.9 (1.6-8.9) K/mcL BMP 03/25/17 03:53 Sodium 141 Potassium 3.1 L Chloride 106 Carbon Dioxide 27 BUN 25 H Creatinine 1.33 H Glucose 85 Calcium 8.4 L Cardiac Enzymes 03/24/17 03/24/17 Range/Units 12:44 19:10 Troponin I 0.03 0.03 (< 0.04) ng/mL - ABG Interpretation ABG results: PT/INR, D-dimer PT 14.1 Seconds (9.4-12.1) H 03/24/17 07:01 Consult Discharge Plan - Plan Referrals: NONE,PCP [Primary Care Provider] -
[2017-03-25] MEDS: MOM Conc 10 ML UD.LIQ PO SCH (12:09)
[2017-03-25] MEDS: Acetaminophen 325 MG TABLET PO PRN (20:36)
[2017-03-26 05:46] LABS: Basophils % 0.3 %; Eosinophils # 0.1 K/mcL (0.0-0.6); Eosinophils % 2.4 %; Hematocrit 34.7 % (35.3-44.9); Hemoglobin 10.5 g/dL (11.5-15.4); Immature Granulocytes % 0.3 % (0-4); Lymphocytes # 1.5 K/mcL (0.6-4.6); Lymphocytes % 51.5 %; Mean Corpuscular HGB Conc 30.3 g/dL (31.6-35.5); Mean Corpuscular Hemoglobin 27.6 pg (28.0-33.3); Mean Corpuscular Volume 91.3 fL (83.0-100.0); Mean Platelet Volume 11.5 fL (9.4-12.4); Monocytes # 0.2 K/mcL (0.0-1.3); Monocytes % 7.4 %; Neutrophils # 1.1 K/mcL (1.6-8.9); Platelet Count 184 K/mcL (140-400); Red Cell Distribution Width 18.3 % (11.5-14.5); Segmented Neutrophils % 38.1 %
[2017-03-26 05:53] LABS: BUN/Creatinine Ratio 21 (6-26); Blood Urea Nitrogen 23 mg/dL (8-23); Calcium 8.3 mg/dL (8.6-10.3); Carbon Dioxide 27 mEq/L (23-29); Chloride 105 mEq/L (98-107); Glucose 91 mg/dL (70-105); Osmolality,Calculated 293 (280-300); Potassium 3.3 mEq/L (3.5-5.1); Sodium 140 mEq/L (136-145); eGFR For African Americans > 60 (> 60); eGFR For Non-African Americans 50 (> 60)
[2017-03-26] MEDS: Aspirin Enteric Coated 325 MG Tablet PO SCH (09:02)
[2017-03-26] MEDS: clonazePAM 1 MG TABLET PO SCH ×2 (09:03→21:22)
[2017-03-26] MEDS: cefTRIAXone 1,000 MG in Water for inj. (sterile) 20 ML 10 ML IVP SCH (09:03)
[2017-03-26] MEDS: Furosemide 40 MG/4 ML VIAL IVP SCH (09:03)
[2017-03-26] MEDS: MOM Conc 10 ML UD.LIQ PO SCH (09:03)
[2017-03-26] MEDS: Apixaban 5 MG TABLET PO SCH (12:06)
--- NOTE | 2017-03-26 13:40 | Internal Med Progress Note ---
Date of Encounter: 03/26/17 Time of Encounter: 13:36 - Assessment and plan (1) Acute exacerbation of CHF (congestive heart failure) Current Visit: Yes Status: Acute Assessment and plan: presented with SOB, recent weight gain and increased peripheral edema. 02/2017 TTE with EF of 15-20%, indeterminate diastolic function, mildly dilated RV, mild RV hypokinesis, severely dilated left atrium and right atrium with a bioprosthetic mitral valve. Suspect acute exacerbation secondary to medication and dietary noncompliance. She was initially diuresed with BID lasix, however this was decreased to daily due to worsening renal function. Does not appear overtly overloaded on 03/26 exam. Continue IV Lasix, strict I&O, daily weight, 1.5 L fluid restriction Qualifiers: Congestive heart failure type: systolic Qualified Code(s): I50.23 - Acute on chronic systolic (congestive) heart failure (2) Acute exacerbation of chronic obstructive airways disease Current Visit: No Status: Acute Assessment and plan: presented with SOB. CXR without infiltrates. Suspect mild COPD exacerbation. Afebrile, no elevated WBC. Hold on respiratory ATB, no indication for steroids at this time. Cont home inhalers, breathing treatments (3) CAD (coronary artery disease) Current Visit: Yes Status: Chronic Assessment and plan: [facility] 06/2016 severe one vessel coronary artery disease - distal RCA MANAGER FOREIGN with left to right collaterals. Had consistent with stress test abnormality. Evaluated by Cardiology during recent hospitalization. Denies CP. Cont home ASA, plavix, BB, statin Qualifiers: Coronary Disease-Associated Artery/Lesion type: [place] artery [place] vs. transplanted heart: [place] heart Associated angina: angina presence unspecified Qualified Code(s): I25.10 - Atherosclerotic heart disease of [place] coronary artery without angina pectoris (4) A-fib Current Visit: No Status: Chronic Assessment and plan: Was found to be in A. fib with RVR during 03/08/17 hospitalization. [id number] is 4 (HTN, CHF, CAD, Female). Rate controlled, continue home BB, eliquis Qualifiers: Atrial fibrillation type: paroxysmal Qualified Code(s): I48.0 - Paroxysmal atrial fibrillation (5) Chronic renal disease, stage 3, moderately decreased glomerular filtration rate (GFR) between 30-59 mL/min/1.73 square meter Current Visit: Yes Status: Acute Assessment and plan: Sr Cr 1.33, GFR 40, appears to be better than pt's recent baseline, but has declined since admission. Likely secondary to IV Lasix. Lasix decreased to daily, hold home SAM. Monitor repeat renal function (6) DVT prophylaxis Current Visit: Yes Status: Acute Assessment and plan: Eliquis - Subjective Interval history: Seen and examined at bedside, patient is new to me. Information obtained from chart review and patient report. Says she feels about the same, maybe a little bit better. No chest pain or shortness of breath. Says swelling to lower legs has improved. - Constitutional Vitals: Temp Pulse Resp BP Pulse Ox 97.7 F 71 20 107/70 94 03/26/17 11:43 03/26/17 11:43 03/26/17 11:43 03/26/17 11:43 03/26/17 11:43 General appearance: Present: A&O X 3, morbidly obese, pleasant, no acute distress, answers questions appropriately - Head Head exam: Present: atraumatic, normocephalic - Eye Eye exam: Present: PERRL, conjuntiva pink, sclera anicteric Pupils: Present: PERRL - Neck Neck exam general surgery: Present: supple, trachea midline. Absent: lymphadenopathy - Respiratory Respiratory exam: Present: CTAB. Absent: accessory muscle use, rales, rhonchi, wheezes - Cardiovascular Cardiovascular exam: Present: RRR, +S1, +S2. Absent: diastolic murmur, gallop, rubs, systolic murmur - GI/Abdominal GI/Abdominal exam: Present: normal bowel sounds, soft, no peritoneal signs. Absent: distended, tenderness - Extremities Exam Extremities exam: Present: pedal edema (trace pedal edema ), warm, radial pulses palpable and symmetrical. Absent: calf tenderness, cyanotic - Neurological Exam Neurological exam: Present: CN II-XII intact, oriented X3, no focal deficits. Absent: pronater drift, facial droop, speech deficit - Skin Skin exam: Present: dry, intact Internal Medicine: Result - Labs CBC & Chem 7: 03/26/17 05:31 03/26/17 05:31 Labs: Short CBC 03/26/17 Range/Units 05:31 WBC 3.0 L (4.3-11.1) K/mcL Hgb 10.5 L (11.5-15.4) g/dL Hct 34.7 L (35.3-44.9) % Plt Count 184 (140-400) K/mcL Neutrophils # 1.1 L (1.6-8.9) K/mcL BMP 03/26/17 05:31 Sodium 140 Potassium 3.3 L Chloride 105 Carbon Dioxide 27 BUN 23 Creatinine 1.10 Glucose 91 Calcium 8.3 L - ABG Interpretation ABG results: PT/INR, D-dimer PT 14.1 Seconds (9.4-12.1) H 03/24/17 07:01 Consult Discharge Plan - Plan Referrals: NONE,PCP [Primary Care Provider] -
[2017-03-27] MEDS: Apixaban 5 MG TABLET PO SCH ×3 (00:13→22:39)
[2017-03-27 03:48] LABS: Hematocrit 37.8 % (35.3-44.9); Hemoglobin 11.6 g/dL (11.5-15.4); Mean Corpuscular HGB Conc 30.7 g/dL (31.6-35.5); Mean Corpuscular Hemoglobin 28.2 pg (28.0-33.3); Mean Corpuscular Volume 91.7 fL (83.0-100.0); Mean Platelet Volume 11.4 fL (9.4-12.4); Platelet Count 198 K/mcL (140-400); Red Blood Count 4.12 M/mcL (3.82-4.97); Red Cell Distribution Width 18.2 % (11.5-14.5)
[2017-03-27 03:58] LABS: Calcium 8.3 mg/dL (8.6-10.3); Potassium 3.6 mEq/L (3.5-5.1)
[2017-03-27] MEDS: Acetaminophen 325 MG TABLET PO PRN (05:10)
[2017-03-27] MEDS: cefTRIAXone 1,000 MG in Water for inj. (sterile) 20 ML 10 ML IVP SCH (09:51)
[2017-03-27] MEDS: Aspirin Enteric Coated 325 MG Tablet PO SCH (09:51)
[2017-03-27] MEDS: clonazePAM 1 MG TABLET PO SCH ×2 (09:51→19:56)
[2017-03-27] MEDS: MOM Conc 10 ML UD.LIQ PO SCH (09:51)
[2017-03-27] MEDS: Furosemide 40 MG/4 ML VIAL IVP SCH (09:52)
--- NOTE | 2017-03-27 11:36 | Internal Med Progress Note ---
Date of Encounter: 03/27/17 Time of Encounter: 10:10 - Assessment and plan (1) Acute exacerbation of CHF (congestive heart failure) Current Visit: Yes Status: Acute Assessment and plan: Pt reports feeling better, but not ready to go home due to continued dyspnea. TTE with EF of 15-20%, indeterminate diastolic function, mildly dilated RV , mild RV hypokinesis, severely dilated left atrium and right atrium with a bioprosthetic mitral valve. Suspect acute exacerbation secondary to medication and dietary noncompliance. She was initially diuresed with BID lasix, however this was decreased to daily due to worsening renal function. Does not appear overtly overloaded on 03/26 exam. Continue IV Lasix, strict I&O, daily weight, 1.5 L fluid restriction. Qualifiers: Congestive heart failure type: systolic Qualified Code(s): I50.23 - Acute on chronic systolic (congestive) heart failure (2) Morbid obesity Current Visit: Yes Status: Chronic Assessment and plan: Lifestyle modifications. Chronic. Encourage adherence to diet and medications. (3) Chronic renal disease, stage 3, moderately decreased glomerular filtration rate (GFR) between 30-59 mL/min/1.73 square meter Current Visit: Yes Status: Acute Assessment and plan: Sr Cr 1.24, GFR 44, appears to be better than pt's recent baseline, but has declined since admission. Likely secondary to IV Lasix. Lasix decreased to daily, hold home SAM. Monitor and repeat renal function (4) CAD (coronary artery disease) Current Visit: Yes Status: Chronic Assessment and plan: Denies CP. Cont home ASA, plavix, BB, statin, ACEI was held for declining renal function. Qualifiers: Coronary Disease-Associated Artery/Lesion type: [place] artery [place] vs. transplanted heart: [place] heart Associated angina: angina presence unspecified Qualified Code(s): I25.10 - Atherosclerotic heart disease of [place] coronary artery without angina pectoris (5) Pacemaker Current Visit: Yes Status: Chronic Assessment and plan: Patient had pacemaker replaced on March 18 at [facility]. Site is intact, Steri-Strips remain intact. There is no bleeding, swelling or drainage. Continue to monitor site. Continue telemetry (6) COPD (chronic obstructive pulmonary disease) Current Visit: Yes Status: Chronic Assessment and plan: Mild exacerbation. Increased SOB and cough. Complicated by CHF exacerbation. Pt has 02 at home, 3L prn, is not wearing 02 now. Suspect that she was placed on Levaquin for COPD, has been stopped. Pt has no fever, tachycardia, sputum production. CXR nwith cardiomegaly with central vascular congestion, no acute process. Continue bronchodilators and 02 as needed to maintain sats > 92%. Monitor labs and vitals for worsening condition Qualifiers: COPD type: unspecified COPD Qualified Code(s): J44.9 - Chronic obstructive pulmonary disease, unspecified (7) Hypothyroidism Current Visit: Yes Status: Chronic Assessment and plan: Chronic. Continue home dose of Levothyroxine. Qualifiers: Hypothyroidism type: unspecified Qualified Code(s): E03.9 - Hypothyroidism , unspecified (8) UTI (urinary tract infection) Current Visit: Yes Status: Acute Assessment and plan: Pt reports symptomatic dysuria for 2-3 days. Urine cloudy with moderate leukocyte esterase and moderate bacteria, but culture was not indicated due to many epithelial cells. Initially treated with Rocephin 1 g for 3 days, have changed to Macrobid 100 mg by mouth twice a day for 5 days. Prior urine culture from 3 weeks ago was negative. Qualifiers: Urinary tract infection type: site unspecified Hematuria presence: without hematuria Qualified Code(s): N39.0 - Urinary tract infection, site not specified (9) DVT prophylaxis Current Visit: Yes Status: Acute Assessment and plan: Patient is anticoagulated and on Eliquis. Continue. - Time Spent With Patient less than 15 minutes - Subjective Interval history: Patient was seen and assessed at 1010. She is sitting up in the bed, talking, in no distress. Patient states that she feels some better, however states she is not ready to go home due to continued continued dyspnea. She denies headache , shortness of breath at rest, abdominal pain, nausea vomiting or diarrhea. Patient will most likely be discharged tomorrow. - Constitutional Vitals: Temp Pulse Resp BP Pulse Ox 97.6 F 70 16 129/84 95 03/27/17 09:05 03/27/17 09:05 03/27/17 09:05 03/27/17 09:05 03/27/17 09:05 General appearance: Present: cooperative, A&O X 3, morbidly obese, pleasant, no acute distress, answers questions appropriately - Head Head exam: Present: atraumatic, normal inspection, normocephalic - Eye Eye exam: Present: normal appearance, conjuntiva pink, sclera anicteric - Neck Neck exam general surgery: Present: normal inspection, supple, trachea midline. Absent: lymphadenopathy, tenderness - Respiratory Respiratory exam: Present: CTAB. Absent: accessory muscle use, chest wall tenderness, rales, respiratory distress, rhonchi, wheezes - Cardiovascular Cardiovascular exam: Present: RRR, +S1, +S2. Absent: diastolic murmur, gallop, rubs, systolic murmur - GI/Abdominal GI/Abdominal exam: Present: normal bowel sounds, soft, no peritoneal signs. Absent: distended, hepatomegaly, tenderness - Extremities Exam Extremities exam: Present: normal capillary refill, normal inspection, warm, radial pulses palpable and symmetrical. Absent: calf tenderness, cyanotic, pedal edema - Neurological Exam Neurological exam: Present: alert, oriented X3, no focal deficits. Absent: pronater drift, facial droop, speech deficit - Skin Skin exam: Present: dry, intact, normal color, warm. Absent: rash Internal Medicine: Result - Labs CBC & Chem 7: 03/27/17 03:30 03/27/17 03:30 Labs: Short CBC 03/27/17 Range/Units 03:30 WBC 3.9 L (4.3-11.1) K/mcL Hgb 11.6 (11.5-15.4) g/dL Hct 37.8 (35.3-44.9) % Plt Count 198 (140-400) K/mcL [facility] 03/27/17 03:30 Sodium 142 Potassium 3.6 Chloride 104 Carbon Dioxide 28 BUN 23 Creatinine 1.24 H Glucose 98 Calcium 8.3 L - ABG Interpretation ABG results: PT/INR, D-dimer PT 14.1 Seconds (9.4-12.1) H 03/24/17 07:01 Consult Discharge Plan - Plan Referrals: NONE,PCP [Primary Care Provider] -
[2017-03-27] MEDS: Nitrofurantoin (BID) 100 MG CAPSULE PO SCH (17:26)
[2017-03-28 04:47] LABS: Basophils % 0.2 %; Eosinophils # 0.1 K/mcL (0.0-0.6); Eosinophils % 1.5 %; Hematocrit 38.1 % (35.3-44.9); Hemoglobin 11.6 g/dL (11.5-15.4); Immature Granulocytes % 0.2 % (0-4); Lymphocytes # 2.2 K/mcL (0.6-4.6); Lymphocytes % 47.3 %; Mean Corpuscular HGB Conc 30.4 g/dL (31.6-35.5); Mean Corpuscular Hemoglobin 27.8 pg (28.0-33.3); Mean Corpuscular Volume 91.4 fL (83.0-100.0); Monocytes # 0.3 K/mcL (0.0-1.3); Neutrophils # 2.1 K/mcL (1.6-8.9); Platelet Count 220 K/mcL (140-400); Red Blood Count 4.17 M/mcL (3.82-4.97); Red Cell Distribution Width 18.1 % (11.5-14.5); Segmented Neutrophils % 44.8 %
[2017-03-28 05:11] LABS: Calcium 9.1 mg/dL (8.6-10.3); Potassium 3.8 mEq/L (3.5-5.1)
[2017-03-28 07:54] VITALS: BP 127/80
[2017-03-28] MEDS: clonazePAM 1 MG TABLET PO SCH (09:05)
[2017-03-28] MEDS: Nitrofurantoin (BID) 100 MG CAPSULE PO SCH (09:05)
[2017-03-28] MEDS: Aspirin Enteric Coated 325 MG Tablet PO SCH (09:05)
[2017-03-28] MEDS: Furosemide 40 MG/4 ML VIAL IVP SCH (09:06)
[2017-03-28] MEDS: MOM Conc 10 ML UD.LIQ PO SCH (09:06)
--- NOTE | 2017-03-28 09:51 | Discharge Summary ---
Date of Encounter: 03/28/17 Time of Encounter: 08:40 - Discharge Diagnosis (1) Acute exacerbation of CHF (congestive heart failure) Priority: Primary Status: Acute Comments: Pt reports feeling better. 02/2017 TTE with EF of 15-20%, indeterminate diastolic function, mildly dilated RV, mild RV hypokinesis, severely dilated left atrium and right atrium with a bioprosthetic mitral valve. Suspect acute exacerbation secondary to medication and dietary noncompliance. She was initially diuresed with BID lasix, however this was decreased to daily due to worsening renal function. Peripheral edema has improved, now +1-2 non-pitting bilaterally. Lungs clear and diminished throughout. Output -890ml with a 5.3 kg weight loss. Continue home lasix dose, daily weight, 1.5 L fluid restriction, low sodium diet after discharge. Qualifiers: Congestive heart failure type: systolic Qualified Code(s): I50.23 - Acute on chronic systolic (congestive) heart failure (2) Morbid obesity Priority: Secondary Status: Chronic Comments: Chronic. Lifestyle modifications. Education completed on adherence to diet and medications. Patient verbalized understanding. (3) Chronic renal disease, stage 3, moderately decreased glomerular filtration rate (GFR) between 30-59 mL/min/1.73 square meter Priority: Secondary Status: Chronic Comments: Renal function has returned to baseline. Serum 1.12, GFR is 49. Continue to avoid nephrotoxins. Follow with nephrology as scheduled. (4) CAD (coronary artery disease) Priority: Secondary Status: Chronic Comments: Denies chest pain. Continue aspirin, Plavix, beta hailee, statin, ACEI was held for declining renal function on admission. Vital signs have remained stable and patient is normotensive. Continue ACEI after following with primary care. Qualifiers: Coronary Disease-Associated Artery/Lesion type: [place] artery [place] vs. transplanted heart: [place] heart Associated angina: angina presence unspecified Qualified Code(s): I25.10 - Atherosclerotic heart disease of [place] coronary artery without angina pectoris (5) Pacemaker Priority: Secondary Status: Chronic Comments: Pacemaker replaced 03/18/17. Steri-Strips remain intact. There is no bleeding, swelling, or drainage. Follow with cardiology as scheduled. (6) COPD (chronic obstructive pulmonary disease) Priority: Secondary Status: Chronic Comments: Mild exacerbation, has improved. Patient reports decrease in shortness of breath and cough. Lungs are clear and diminished throughout. Patient wears 3 L oxygen and home as needed. Continue home medications and oxygen. Qualifiers: COPD type: unspecified COPD Qualified Code(s): J44.9 - Chronic obstructive pulmonary disease, unspecified (7) Hypothyroidism Priority: Secondary Status: Chronic Comments: Chronic. Continue home medication. Qualifiers: Hypothyroidism type: unspecified Qualified Code(s): E03.9 - Hypothyroidism , unspecified (8) UTI (urinary tract infection) Priority: Secondary Status: Acute Comments: Patient reported symptomatic dysuria for 2-3 days prior to arrival. Urinalysis indicative of UTI, no culture was indicated however. Patient was treated with IV Rocephin and will finish course of treatment with by mouth antibiotics at home. Patient currently denies dysuria or urgency, frequency, or flank pain. No nausea or vomiting or abdominal pain. Qualifiers: Urinary tract infection type: site unspecified Hematuria presence: without hematuria Qualified Code(s): N39.0 - Urinary tract infection, site not specified (9) DVT prophylaxis Priority: Secondary Status: Acute Comments: Patient is already anticoagulated and on Eliquis. Continue at home. - Discharge Medications Prescriptions: Nitrofurantoin (BID) [Macrobid] 100 mg PO BIDWM #8 capsule Home Medications: Furosemide [Lasix] 40 mg PO DAILY 06/25/16 [History] Gemfibrozil [Lopid] 600 mg PO BID 06/25/16 [History] Levothyroxine [Synthroid] 88 mcg PO DAILY 06/25/16 [History] Metoprolol [Lopressor] 25 mg PO BID 06/25/16 [History] Pravastatin Sodium [Pravachol] 80 mg PO DAILY 06/25/16 [History] Sertraline [Zoloft] 200 mg PO DAILY 06/25/16 [History] clonazePAM [Klonopin] 1 mg PO BID 06/25/16 [History] Albuterol Neb [Proventil Neb] 2.5 mg IH Q6H PRN 02/24/17 [History] Albuterol Sulfate [Ventolin Hfa] 2 puff IH Q4H PRN 02/24/17 [History] Aspirin Enteric Coated [Aspirin EC] 325 mg PO DAILY 02/24/17 [History] Clopidogrel [Plavix] 75 mg PO DAILY 02/24/17 [History] Acetaminophen [Non-Aspirin] 325 mg PO DAILY PRN 03/24/17 [History] Apixaban [Eliquis] 5 mg PO Q12H 03/24/17 [History] Potassium Chloride [K-Tab ER] 10 meq PO BID 03/24/17 [History] Nitrofurantoin (BID) [Macrobid] 100 mg PO BIDWM #8 capsule 03/28/17 [Rx] Allergies/Adverse Reactions: 3 Allergy/AdvReac Type Severity Reaction Status Date / Time No Known Allergies Allergy Verified 03/24/17 07:56 Date of admission: 03/24/17 08:58 Primary care physician: PCP NONE Discharging clinician: Brynn Stiles Anticipated date of discharge: 03/28/17 - Patient Status Disposition: Home, Self-Care Condition: Good Functional capacity at discharge: independent ambulation Overall status at discharge: patient is progressing back to baseline - Discharge Instructions Follow Up With: NONE,PCP [Primary Care Provider] - Additional Instructions: Follow up with your PCP in the next 7-10 days for a follow up visit. Return to the ER as needed for any other problems or concerns. Take your medications daily. Make sure that you are adherent with your diet and medications: -Low sodium -1-1.5 liters of fluid daily -Weigh yourself daily -Take your medications as directed and on time Return to your normal activities as tolerated. Follow up with cardiology as scheduled. - Diet and Activity Activity: increase activity as tolerated, resume usual activities as tolerated Diet: diabetic diet, low fat, low cholesterol, low salt diet Hospital course: Ms. Buckner is a 61 year old female with past medical history of hypothyroidism, hypertension, hyperlipidemia, pacemaker, CAD, CK D stage III, CHF, COPD, and STEMI, A. fib. Patient presents to the emergency department with complaint of shortness of breath and weight gain recently. She was not adherent to her medications and diet regimen. COPD was also exacerbated by CHF exacerbation. Patient was treated with IV Lasix, oxygen when necessary. Patient also was experiencing few days with dysuria prior to arrival. She received Rocephin IV and will be treated with Macrobid by mouth on discharge. Renal function remained pretty much at baseline throughout. Lisinopril was stopped due to decreasing renal function. She can continue after she follows up for recheck with primary care. Currently, labs are stable and patient is stating that she feels better. Her vital signs are stable and she is at her baseline oxygen use. She is stable and appropriate for discharge. - Time Spent with Patient Total time spent providing and/or coordinating discharge services: Less than 30 minutes - Constitutional Vitals: Temp Pulse Resp BP Pulse Ox 97.8 F 87 16 127/80 99 03/28/17 07:53 03/28/17 07:53 03/28/17 07:53 03/28/17 07:53 03/28/17 07:53 General appearance: Present: cooperative, A&O X 3, morbidly obese, pleasant, no acute distress, answers questions appropriately - Head Head exam: Present: atraumatic, normal inspection, normocephalic - Eye Eye exam: Present: normal appearance, conjuntiva pink, sclera anicteric - Neck Neck exam general surgery: Present: supple, trachea midline. Absent: lymphadenopathy - Respiratory Respiratory exam: Present: decreased breath sounds, CTAB. Absent: accessory muscle use, rales, respiratory distress, rhonchi, wheezes - Cardiovascular Cardiovascular exam: Present: RRR, +S1, +S2. Absent: diastolic murmur, gallop, rubs, systolic murmur - GI/Abdominal GI/Abdominal exam: Present: normal bowel sounds, soft, no peritoneal signs. Absent: distended, hepatomegaly, tenderness - Extremities Exam Extremities exam: Present: normal capillary refill, normal inspection, warm, radial pulses palpable and symmetrical. Absent: calf tenderness, cyanotic, pedal edema, tenderness - Neurological Exam Neurological exam: Present: alert, altered, oriented X3, no focal deficits. Absent: facial droop, speech deficit - Skin Skin exam: Present: dry, intact, normal color, rash. Absent: warm
== END 2017-03-28 12:06 | disposition home or self-care (01) ==
LOC: EMEROO 06:28 → 3BNU 06:28
PROVIDERS: ADMIT Hospitalist; ATTEND Registered Nurse